=== PATIENT | female | born 1975 | race Two or more races ===

== ENCOUNTER 2020-06-10 11:45 | Emergency (ER) | payer OTHER, SELFPAY ==
[2020-06-10 12:00] VITALS: BP 127/67
[2020-06-10 12:08] VITALS: BP 157/112; PULSE 100; RESP 17; TEMP 36.8; O2SAT 96; BMI 31.2
--- NOTE | 2020-06-10 12:22 | CT_ITS ---
EXAMINATION: CT CERVICAL SPINE WITHOUT CONTRAST CLINICAL INFORMATION: Fall many months ago. Continued cervical pain COMPARISON: Cervical spine radiographs 12/20/2019. CT chest 05/04/2019 TECHNIQUE: Without contrast, contiguous helical axial tomographic images through the cervical spine were obtained. Coronal and sagittal reformatted images were obtained and reviewed as well. This CT examination was performed using dose optimization techniques as appropriate, variously including the following: *Automated exposure control *Adjustment of mA and/or kV according to patient size (this includes techniques or standardized protocols for targeted exams where dose is matched to indication/reason for exam; i.e. extremities or head) *Use of iterative reconstruction technique DLP: 462 mGy-cm FINDINGS: There is straightening of the normal cervical lordosis which can be positional or due to muscle spasm. No se or retrolisthesis at any level. No fracture seen. Vertebral body heights are maintained. Normal prevertebral soft tissues. There is circumferential wall thickening of the esophagus in the region of the thoracic inlet, unchanged from prior chest CT 05/04/2019 Lung apices are clear. There is a cyst in the left upper lobe. Thyroid is homogeneous. No cervical lymphadenopathy or fluid collection. Spinal levels: C2-C3: Normal. C3-C4: Normal. C4-C5: Normal. C5-C6: Normal. C6-C7: Normal. C7-T1: Normal. CT/CT cervical spine wo con IMPRESSION: No acute osseous abnormality. There is straightening of the normal cervical lordosis which can be positional or due to muscle spasm.
--- NOTE | 2020-06-10 13:09 | ED.BACK ---
HPI - Back Pain/Injury General Chief Complaint: Back Pain/Injury <MUSA More - Last Filed: 06/10/20 13:39> Stated Complaint: UPPER BACK PAIN <MUSA More - Last Filed: 06/10/20 13:39> Time Seen by Provider: 06/10/20 12:19 <MUSA More - Last Filed: 06/10/20 13:39> Source: patient <MUSA More - Last Filed: 06/10/20 13:39> Mode of arrival: ambulatory <MUSA More - Last Filed: 06/10/20 13:39> History of Present Illness HPI Narrative: 45yoF past medical history of anxiety, asthma, depression, hyperlipidemia, fibromyalgia, IBS, migraines, pulmonary hypertension, spondylosis of the lumbosacral joint c/o acute on chronic upper and lower back pain radiating down LUE and RLE S/P mechanical fall in the beginning of the year. Admits to taking ibuprofen at home without relief. Reports seeing [facility], and PCP, however unable to obtain CT or MRI due to insurance issues. Denies weakness, urinary incontinence or retention, new/more recent fall/trauma <MUSA More - Last Filed: 06/10/20 13:39> MD elicited complaint: back pain <MUSA More - Last Filed: 06/10/20 13:39> Related Data Home Medications: Home Medications Medication Instructions Recorded Confirmed amitriptyline 10 mg tablet 10 mg PO BEDTIME 05/15/20 05/15/20 atorvastatin 10 mg tablet 10 mg PO DAILY 05/15/20 05/15/20 cholecalciferol (vitamin D3) 50 50 mcg PO DAILY 05/15/20 05/15/20 mcg (2,000 unit) tablet duloxetine 60 mg capsule,delayed 60 mg PO DAILY 05/15/20 05/15/20 release furosemide 40 mg tablet 40 mg PO DAILY 05/15/20 05/15/20 lorazepam 1 mg tablet 1 mg PO Q12H PRN 05/15/20 05/15/20 meloxicam 15 mg tablet 15 mg PO DAILY 05/15/20 05/15/20 nortriptyline 25 mg capsule mg PO 05/15/20 05/15/20 omeprazole 20 mg capsule,delayed 20 mg PO DAILY 05/15/20 05/15/20 release prednisone 10 mg tablet 10 mg PO DAILY 05/15/20 05/15/20 spironolactone 100 mg tablet 0 mg PO 05/15/20 05/15/20 zolpidem 12.5 mg tablet,extended 12.5 mg PO BEDTIME PRN 05/15/20 05/15/20 release,multiphase Previous Rx's Medication Instructions Recorded gabapentin 600 mg tablet 600 mg PO TID 90 Days #270 tab 05/15/20 sertraline 50 mg tablet 50 mg PO DAILY #30 tab 06/01/20 acetaminophen [Tylenol Extra 500 mg PO Q6H PRN #20 tab 06/10/20 Strength] cyclobenzaprine 5 mg PO Q8H PRN 5 Days #14 tab 06/10/20 lidocaine [Lidoderm] 1 patch TOPICAL DAILY PRN #30 ea 06/10/20 MDD remove after 12 hours naproxen 500 mg PO BID PRN 10 Days #20 tab 06/10/20 <MUSA More - Last Filed: 06/10/20 13:39> Allergies/Adverse Reactions: Allergies Allergy/AdvReac Type Severity Reaction Status Date / Time lactose [LACTOSE] Allergy Unknown DIARRHEA Unverified 05/15/20 14:37 No Known Drug Allergies Allergy none Verified 05/15/20 14:37 milk [MILK] AdvReac Unknown DIARRHEA Unverified 05/15/20 14:37 <MUSA More - Last Filed: 06/10/20 13:39> Review of Systems Review of Systems: Constitutional: No Weight loss, No Fever, No Chills ENT/Mouth: No Ear Pain, No Nasal Congestion, No Sinus Pain, No Hoarseness, No sore throat, No Rhinorrhea, No Swallowing Difficulty Genitourinary: No Hematuria, No Urinary Incontinence or retention, No Flank Pain Musculoskeletal: +back and neck pain, No Myalgias, No Joint Swelling Skin: No Skin Lesions, No rash Neuro: No Weakness, No Numbness, No Paresthesias <MUSA More Last Filed: 06/10/20 13:39> Yes all other systems are reviewed and are negative <MUSA More Last Filed: 06/10/20 13:39> [facility] Past Medical History Attestation statement: The following information was validated with the patient. <MUSA More - Last Filed: 06/10/20 13:39> Medical History: Medical History (Updated 06/11/20 @ 00:21 by Savita Washington) Anxiety Asthma Chronic SI joint pain Depression Dyslipidemia Fall Fibromyalgia High triglycerides IBS (irritable bowel syndrome) Lymphangioleiomyomatosis Migraine Pain of right scapula Polycystic disease, ovaries Pulmonary HTN Spondylosis of lumbosacral joint without myelopathy Tinea cruris <MUSA More - Last Filed: 06/10/20 13:39> Surgical History: Surgical History History of section History of endoscopy History of laparoscopy History of tubal ligation <MUSA More - Last Filed: 06/10/20 13:39> Family History Family History: Family History Father Unknown family medical history Mother HTN (hypertension) Non-insulin dependent diabetes mellitus Maternal Grandmother Cancer Maternal Grandfather No problems noted. Paternal Grandfather No problems noted. Paternal Grandmother No problems noted. Brother No problems noted. Sister No problems noted. <MUSA More - Last Filed: 06/10/20 13:39> Physical Exam Vital Signs: Vital Signs: Last Vital Signs Temp 98.2 F 06/10/20 12:08 Pulse 100 06/10/20 12:08 Resp 17 06/10/20 12:08 BP 157/112 H 06/10/20 12:08 Pulse Ox 96 06/10/20 12:08 Body Mass Index 31.2 <MUSA More - Last Filed: 06/10/20 13:39> Vital Signs: Last Vital Signs Temp 98.2 F 06/10/20 12:08 Pulse 100 06/10/20 12:08 Resp 17 06/10/20 12:08 BP 157/112 H 06/10/20 12:08 Pulse Ox 96 06/10/20 12:08 Body Mass Index 31.2 <Rubén Gimenez MD - Last Filed: 06/13/20 02:36> Const: General: cooperative and healthy appearing <Kathleen Curiel PA - Last Filed: 06/10/20 13:39> Orientation/consciousness: patient oriented x3 <Kathleen Curiel AL - Last Filed: 06/10/20 13:39> Limitations: no limitations <Kathleen Curiel AL - Last Filed: 06/10/20 13:39> HENMT: Head: Yes normal to inspection <Kathleen Curiel PA - Last Filed: 06/10/20 13:39> Ears: hearing grossly normal bilaterally <Kathleen Curiel AL - Last Filed: 06/10/20 13:39> General nose exam: Normal external nose present <Kathleen Curiel AL - Last Filed: 06/10/20 13:39> Face and sinus: Yes normal facial exam <Kathleen Curiel PA - Last Filed: 06/10/20 13:39> Eyes: General: appearance normal, both eyes and all related structures <Kathleen Curiel AL - Last Filed: 06/10/20 13:39> EOM: EOMs intact bilaterally <Kathleenshayne Curiel AL - Last Filed: 06/10/20 13:39> Neck: Other: No midline cervical spinous tenderness. Left-sided paraspinal tenderness and left trapezius muscle tenderness on exam <Kathleen Curiel AL - Last Filed: 06/10/20 13:39> Neck: Yes normal visual inspection, Yes no meningeal signs and Yes trachea midline <Kathleen Curiel AL - Last Filed: 06/10/20 13:39> Resp: Effort & Inspection: normal respiratory effort <Kathleen Curiel PA - Last Filed: 06/10/20 13:39> Cardio: Rate: regular rate <Kathleen Curiel AL - Last Filed: 06/10/20 13:39> Peripheral pulses: radial pulses present <Kathleen Curiel PA - Last Filed: 06/10/20 13:39> Back/Spine/Pelvis: Other: No midline thoracic or lumbar spinous tenderness. + right-sided lumbar MSK tenderness <Kathleen Curiel PA - Last Filed: 06/10/20 13:39> Skin: Rashes: no rashes <Kathleen Curiel PA - Last Filed: 06/10/20 13:39> Wounds: no wounds <Kathleen Veena, PA - Last Filed: 06/10/20 13:39> Neuro: Other: Ambulating with steady gait. No saddle anesthesia <MUSA More - Last Filed: 06/10/20 13:39> General: patient oriented x3 and no meningeal signs <MUSA More - Last Filed: 06/10/20 13:39> Gait exam (Neuro): Normal gait present <MUSA More - Last Filed: 06/10/20 13:39> Motor exam (neuro): 5/5 motor strength present throughout <MUSA More - Last Filed: 06/10/20 13:39> Extrem: General: Yes normal to inspection <MUSA More - Last Filed: 06/10/20 13:39> Course Course Course Narrative: -CT without acute osseous abnormality. There is straightening of the normal cervical lordosis which she be positional or due to muscle spasm <MUSA More - Last Filed: 06/10/20 13:39> I have reviewed the chart <Rubén Gimenez MD - Last Filed: 06/13/20 02:36> MDM - Back Pain/Injury MDM Narrative Medical decision making narrative: On exam hypertensive, appears in pain, no midline spinous tenderness throughout, no red flag symptoms. Patient requesting cervical spine CT, will obtain, and outpatient follow-up with PCP <MUSA More - Last Filed: 06/10/20 13:39> Discharge Plan Discharge Clinical Impression: Back pain <MUSA More - Last Filed: 06/10/20 13:39> Patient Disposition: Home, Self-Care <MUSA More - Last Filed: 06/10/20 13:39> Instructions: Back Pain (ED) <MUSA More - Last Filed: 06/10/20 13:39> Additional Instructions: Your pain is likely musculoskeletal You to follow-up with her primary care doctor, and [facility] doctor Flexeril is a muscle relaxer, take at night as it makes you drowsy, do not drive, drink alcohol, or operate machinery while taking it Naproxen as an anti-inflammatory / pain medication, take with food Lidoderm patches are numbing patches, apply to painful area In addition take Tylenol at home If symptoms persist or worsen, pain becomes unbearable, you developed urinary retention or incontinence, or weakness return to the ED <MUSA More - Last Filed: 06/10/20 13:39> Prescriptions: New acetaminophen [Tylenol Extra Strength] 500 mg tablet 500 mg PO Q6H PRN (Reason: pain or fever) Qty: 20 RF: 0 lidocaine [Lidoderm] 5 % adhesive patch,medicated 1 patch topical DAILY MDD remove after 12 hours PRN (Reason: pain) Qty: 30 RF: 0 naproxen 500 mg tablet 500 mg PO BID PRN (Reason: pain) 10 Days Qty: 20 RF: 0 cyclobenzaprine 5 mg tablet 5 mg PO Q8H PRN (Reason: pain (scale score 7-10)) 5 Days Qty: 14 RF: 0 No Action gabapentin 600 mg tablet 600 mg PO TID 90 Days Qty: 270 RF: 0 sertraline 50 mg tablet 50 mg PO DAILY Qty: 30 RF: 4 meloxicam 15 mg tablet 15 mg PO DAILY RF: 0 furosemide 40 mg tablet 40 mg PO DAILY RF: 0 duloxetine 60 mg capsule,delayed release(DR/EC) 60 mg PO DAILY RF: 0 cholecalciferol (vitamin D3) 50 mcg (2,000 unit) tablet 50 mcg PO DAILY RF: 0 zolpidem 12.5 mg tablet,ext release multiphase 12.5 mg PO BEDTIME PRNRF: 0 spironolactone 100 mg tablet 0 mg PO RF: 0 omeprazole 20 mg capsule,delayed release(DR/EC) 20 mg PO DAILY RF: 0 lorazepam 1 mg tablet 1 mg PO Q12H PRNRF: 0 prednisone 10 mg tablet 10 mg PO DAILY RF: 0 amitriptyline 10 mg tablet 10 mg PO BEDTIME RF: 0 atorvastatin 10 mg tablet 10 mg PO DAILY RF: 0 nortriptyline 25 mg capsule PO RF: 0 <MUSA More - Last Filed: 06/10/20 13:39> Referrals: Stuart Timmons, [facility] [Primary Care Provider] - 2 days <MUSA More - Last Filed: 06/10/20 13:39> Interventions: ED Discharge Assessment Last Done: 06/10/20 13:45 <MUSA More - Last Filed: 06/10/20 13:39> Discharge Date/Time: 06/10/20 13:46 <MUSA More - Last Filed: 06/10/20 13:39>
== END 2020-06-10 13:46 | disposition home or self-care (01) ==
PROVIDERS: Emergency Provider Emergency Medicine; PCP Nurse Practitioner Family
DX: M54.6 Pain in thoracic spine (principal); M54.2 Cervicalgia; M54.5 Low back pain; E78.5 Hyperlipidemia, unspecified; M79.7 Fibromyalgia; Z79.899 Other long term (current) drug therapy
CPT/HCPCS: 72125; 99283; 99284

== ENCOUNTER 2020-06-10 13:58 | Outpatient (REF) | payer OTHER, SELFPAY | END 2020-06-10 13:59 | disposition home or self-care (01) | LOC: HO.LAB 13:58 | PROVIDERS: Visit Provider Nurse Practitioner Family | DX: Z01.83 Encounter for blood typing (principal) | CPT/HCPCS: 86850; 86900; 86901 ==

== ENCOUNTER 2020-07-16 17:57 | Outpatient (REF) | payer OTHER, SELFPAY ==
--- NOTE | 2020-07-16 18:00 | MR_ITS ---
EXAMINATION: MR CERVICAL SPINE WITHOUT CONTRAST CLINICAL INFORMATION: Cervical disc disorder. COMPARISON: Cervical spine CT scan 06/10/2020. TECHNIQUE: MRI of the cervical spine was obtained using routine sequences without contrast. FINDINGS: Alignment is normal. Vertebral heights are preserved. No acute bone marrow signal changes. There is disc desiccation at multiple levels without substantial loss of intervertebral disc height. There are small shallow left central protrusions at C4-C5 and C5-C6 causing minimal indentation of the thecal sac. Annular contours are otherwise normal. No canal or neuroforaminal compromise. No cord compression or abnormal intramedullary signal changes. The cervicomedullary junction is normal. Limited visualization of the intracranial compartment reveals no abnormal finding. The occipital condyles and lateral C1 masses are intact. Atlantodental joint is normal. C1-C2 articular facets are unremarkable. Visualized soft tissues of the neck are normal. MR/MR cervical spine wo con IMPRESSION: There are relatively small shallow protrusions at C4-C5 and C5-C6 causing minimal indentation of the thecal sac. Otherwise normal examination. No canal or neuroforaminal compromise. No cord compression or abnormal intramedullary signal changes.
== END 2020-07-16 17:58 | disposition home or self-care (01) ==
LOC: HO.MRI 17:57
PROVIDERS: Visit Provider Nurse Practitioner Family
DX: M50.90 Cervical disc disorder, unspecified, unspecified cervical region (principal)
CPT/HCPCS: 72141

== ENCOUNTER 2020-12-09 10:26 | Outpatient (REF) | payer OTHER, SELFPAY ==
[2020-12-09 11:51] LABS: MANUAL DIFF FLAG NO
[2020-12-09 11:54] LABS: Glucose Urine UA NEG (NEG); Leukocyte Esterase Urine NEG (NEG); Nitrite Urine NEG (NEG); Specific Gravity - Urine 1.025 (1.005-1.025); Urine Blood NEG (NEG); Urine Ketones NEG (NEG); Urine Protein NEG (NEG-TRACE)
[2020-12-09 11:55] LABS: Appearance Urine CLOUDY; Color Urine YELLOW
[2020-12-09 11:57] LABS: Basophils Percent Auto 0.4 % (0-2); Eosinophils Absolute Auto 0.1 X10*3/uL (0.0-0.4); Eosinophils Percent Auto 1.6 % (0-4); Hematocrit 39.8 % (37-47); Hemoglobin 13.2 g/dl (12.0-16.0); Imm Gran Abs Auto 0.02 X10*3/uL (0.00-0.03); Imm Gran Pct Auto 0.4 % (0.0-0.4); Lymphocytes Absolute Auto 1.8 X10*3/uL (1.2-4.9); Mean Corpuscular HGB Conc 33.2 g/dl (31.0-35.0); Mean Corpuscular Hemoglobin 30.6 pg (27.0-33.0); Mean Corpuscular Volume 92.1 fL (80-98); Mean Platelet Volume 10.7 fL (9.4-12.3); Monocytes Absolute Auto 0.3 X10*3/uL (0.1-1.2); Monocytes Percent Auto 6.3 % (2-11); Neutrophils Absolute Auto 2.8 X10*3/uL (2.0-8.3); Neutrophils Percent Auto 55.3 % (45-73); Platelet Count 261 X10*3/uL (160-400); Red Blood Count 4.32 X10*6/uL (4.20-5.50); Red Cell Distribution Width 12.4 % (11.0-16.0); White Blood Count 5.1 X10*3/uL (4.8-10.8)
[2020-12-09 12:21] LABS: Bacteria Urine 1+ /LPF; RBC Urine 0-2 /HPF (0); Squamous Epithelial Cell Urine 3+ /LPF; WBC Urine 0-2 /HPF (0-4)
[2020-12-09 12:39] LABS: Thyroid Stimulating Hormone 1.76 uIU/mL (0.32-4.0)
[2020-12-09 12:46] LABS: Alanine Aminotransferase 15 U/L (0-31); Albumin Level 4.6 g/dL (3.5-5.0); Alkaline Phosphatase 94 U/L (39-117); Anion Gap 14 (12-20); Aspartate Amino Transferase 16 U/L (5-31); Blood Urea Nitrogen 5 mg/dL (9-16); C Reactive Protein 0.08 mg/dL (< or = 0.50); Calcium 9.4 mg/dL (8.4-10.2); Carbon Dioxide 26 mmol/L (22-29); Chloride 104 mmol/L (96-108); Estimated Glomerular Filt Rate > 60; Glucose Random 98 mg/dL (60-115); Potassium 3.8 mmol/L (3.3-5.1); Sodium 140 mmol/L (135-145); Total Protein 7.7 g/dL (6.5-8.0)
[2020-12-09 13:11] LABS: Erythrocyte Sedimentation Rate 13 MM/HR (0-20)
[2020-12-10 12:44] LABS: Anti DNA DS Antibody 1 IU/mL; SM/Ribonucleoprotein Ab <1.0 NEG AI (<1.0 NEG); Smith Protein <1.0 NEG AI (<1.0 NEG)
[2020-12-10 15:12] LABS: Complement C3 143 mg/dL (83-193)
[2020-12-10 17:36] LABS: Thyroglobulin Antibodies <1 IU/mL (< or = 1); Thyroid Peroxidase Antibodies 1 IU/mL (<9)
[2020-12-11 21:27] LABS: Cyclic Citrullinated Peptide <16 UNITS
== END 2020-12-09 10:27 | disposition home or self-care (01) ==
LOC: HO.LAB 10:26
PROVIDERS: PCP Nurse Practitioner Family; Visit Provider Student in an Organized Health Care Education/Training Program
DX: R76.8 Other specified abnormal immunological findings in serum (principal); M25.50 Pain in unspecified joint
CPT/HCPCS: 36415; 80053; 81001; 84443; 85025; 85652; 86140; 86160; 86200; 86225; 86235; 86376; 86800; 99202

== ENCOUNTER → 2021-03-18 15:10 | Outpatient (BNVA) | payer OTHER, SELFPAY | PROVIDERS: PCP Nurse Practitioner Family; Visit Provider Student in an Organized Health Care Education/Training Program | DX: R76.8 Other specified abnormal immunological findings in serum (principal); M79.7 Fibromyalgia | CPT/HCPCS: 99212 ==

== ENCOUNTER 2021-04-13 09:52 | Outpatient (REF) | payer OTHER, SELFPAY ==
--- NOTE | ~2021-04-13 | CT_ITS ---
EXAMINATION: CT CHEST WITH CONTRAST CLINICAL INFORMATION: SINGLETON of the lungs. Shortness of breath. COMPARISON: Previous chest CT May 2019 TECHNIQUE: Multidetector volumetric CT imaging of the chest was obtained after the administration of 65 mL of Omnipaque 350 intravenous contrast without immediate adverse reactions. Axial MIP volume rendering provided. Sagittal and coronal reformatted images were obtained. This CT examination was performed using dose optimization techniques as appropriate, variously including the following: *Automated exposure control *Adjustment of mA and/or kV according to patient size (this includes techniques or standardized protocols for targeted exams where dose is matched to indication/reason for exam; i.e. extremities or head) *Use of iterative reconstruction technique DLP: 85 mGy-cm FINDINGS: RECREATIONAL ASSISTANT: Unremarkable LUNGS: There are multiple thin-walled cysts seen bilaterally. This does not appear appreciably changed from May 2019 exam. Largest cysts measure 1.5 cm. There is a 2 mm right lower lobe peripheral nodule axial image 114 series 5. This is stable. There is subsegmental atelectasis at the lung bases. The lungs are otherwise clear. No evidence of emphysema, interstitial lung disease or bronchiectasis is seen. No endobronchial or endotracheal lesion is seen MEDIASTINUM: The mediastinum is normal. PLEURA: There is no pleural effusion. No pleural mass or thickening. AXILLA: No lymphadenopathy. UPPER ABDOMEN: Unremarkable OSSEOUS STRUCTURES: There is mild curvature of the thoracic spine to the right. CT/CT chest w con IMPRESSION: Stable bilateral lung cysts compared to May 2019.
[2021-04-13] MEDS: iohexoL 350 MG/ML 100 ML INFUS..BTL IV (10:50)
== END 2021-04-13 09:53 | disposition home or self-care (01) ==
LOC: HO.CT 09:52
PROVIDERS: PCP Nurse Practitioner Family; Visit Provider Student in an Organized Health Care Education/Training Program
DX: J98.4 Other disorders of lung (principal)
CPT/HCPCS: 71260; Q9967

== ENCOUNTER 2021-05-21 11:00 | Outpatient (RCR) | payer OTHER, SELFPAY ==
--- NOTE | 2021-04-13 14:58 | MHC.PT.EP ---
[facility] [place] Office [place] [facility] [place] Office [address] Diandra Burden [address] [phone] F: [phone] F: [phone] F: [phone] F: [phone] Physical Therapy Plan of Care Date of Evaluation: Date of Surgery: n/a Diagnosis: Back pain Assessment: Pt is a 46/yo F referred to PT for eval/treat of back pain. signs and symptoms are consistent should scapulothoracic dysfunction resulting in decreased ability to perform personal care and lifting heavy object off of the floor, decreased tolerance for sitting and ambulating for duration, as well as disrupted sleep and social life. Functional limitations mentioned about are secondary to limited L scapulothoracic rhythm, hypomobility of T1-12 spine, TTP of thoracic erectae spinae, nicole scapular musculature, UT, Hx of fall, and pain. pt is deemed appropriate to receive skilled PT to address her physical impairment and improve her functional abilities. Frequency and Duration: The patient will be seen 2x/wk for 5wk Short Term Goals: initiate HEP w/ evidence of compliance pt will reports pain less than 1/10 at rest Network Operations Manager Goals: pt will report i do not normally cahnge the way I wash or dress even though it causes some pain ; initial washing and dressing increases my pain and find it necessary to change the way Nicki pt will be able to ambulate for a mile w/ minimal pain; initial pain prevent me from walking intermediate distance pt will improve her Nicki score by at least 20%; initial 25/50. Treatment Plan: Modalities to reduce pain, spasms and effusion. Manual therapy to restore motion and function. Therapeutic exercise to improve strength and flexibility. Neuromuscular re-education for posture and balance. Therapeutic activities to return to functional activities of daily living. Electronically signed by: José Luis Cruz PT Please sign and return to therapist. Thank you for your referral.
--- NOTE | 2021-08-17 16:52 | MHC.PT.DC ---
[facility] [place] Office [place] Office [place] Office [address] Diandra Burden [address] [phone] F: [phone] F: [phone] F: [phone] F: [phone] Physical Therapy Discharge Report Diagnosis: Back pain Date of Surgery: n/a Date of Evaluation: 04/13/21 Date of Discharge: 06/01/21 Treatments to Date: 9 Cancellations to Date: 4 No Shows to Date: 1 Discharge Status: Achieved Goals Improved Function Independent with HEP Discharge Summary: Ciara had been an active participant in her therapy in and out of the clinic though missed her lase appointments for final assessment and is DC'd ultimately d/t attendance policy. Her Nicki disability index improved from 50% to 12% disability; she is I with her home program and hd met most of her therapeutic goals. Electronically signed by: José Luis Cruz PT Please sign and return to therapist. Thank you for your referral.
== END 2021-08-17 16:52 | disposition home or self-care (01) ==
LOC: HO.PTCHIC 11:00
PROVIDERS: PCP Nurse Practitioner Family; Visit Provider Nurse Practitioner Family
DX: M54.9 Dorsalgia, unspecified (principal)
CPT/HCPCS: 97012; 97014; 97110; 97140; 97161

== ENCOUNTER 2021-06-17 15:01 | Emergency (ER) | payer OTHER, SELFPAY ==
--- NOTE | ~2021-06-17 | CT_ITS ---
EXAMINATION: CT BRAIN WITHOUT CONTRAST. CHEST X-RAY. CLINICAL INFORMATION: Dizziness COMPARISON: None TECHNIQUE: 5 mm thin axial and reformatted 2 mm thin sagittal coronal images of brain were obtained without contrast. DLP 600. Chest one view. FINDINGS: Brain: There is no acute intra-axial, extra-axial bleed, masses or midline shift. There is no acute infarction evolution. The logan to white matter difference is maintained normal. The lateral ventricles are symmetrical in size and configuration without enlargement. Bone windows reveal no calvarial abnormality. The scalp soft tissues are normal. Bilateral paranasal sinuses and mastoid air cells are well aerated. Chest x-ray: Both lungs are fairly well-expanded and clear of acute pneumonic process. There is platelike atelectasis in the lingula. Heart size and pulmonary vascularity is normal. No gross bony abnormality seen.. CT/CT head/brain wo con IMPRESSION: No acute intracranial process seen. Unremarkable chest x-ray.
[2021-06-17 15:06] VITALS: BP 151/80; PULSE 85; RESP 16; TEMP 36.6; O2SAT 100; BMI 30.2
[2021-06-17 16:13] VITALS: BP 174/97; PULSE 79; RESP 18; TEMP 36.6; O2SAT 96
--- NOTE | 2021-06-17 16:13 | ED.GENADULT ---
HPI - General Adult General Chief complaint: General Medical Stated complaint: dizziness Time Seen by Provider: 06/17/21 16:13 Source: patient Mode of arrival: ambulatory Limitations: no limitations History of Present Illness HPI narrative: 46-year-old female came in for evaluation of lightheadedness and dizziness. Symptoms started 4-5 days ago, described as intermittent feeling of lightheadedness but no spinning of the room, nothing trigger her symptoms, nothing make it worse, no other associated chest pain, patient has been having difficulty breathing but patient is known to have SINGLETON lung disease. patient declined any fever or chills or chest pain. Never had this symptoms in the past. patient has been feeling otherwise at her normal health status. Related Data Home Medications Medication Instructions Recorded Confirmed furosemide 40 mg tablet 40 mg PO DAILY 05/15/20 12/30/20 omeprazole 20 mg capsule,delayed 20 mg PO DAILY 05/15/20 12/30/20 release amitriptyline 10 mg tablet 10 mg PO BEDTIME tab 02/10/21 sertraline 25 mg tablet 25 mg PO DAILY 02/16/21 Previous Rx's Medication Instructions Recorded naproxen 500 mg tablet 500 mg PO BID PRN 10 Days #20 tab 06/10/20 lorazepam 1 mg tablet 1 mg PO Q12H PRN 30 Days #60 tab 08/07/20 acetaminophen 500 mg tablet 500 mg PO Q6H PRN 30 Days #120 tab 11/11/20 (Tylenol Extra Strength) escitalopram oxalate 10 mg tablet 10 mg PO DAILY 30 Days #30 tab 12/11/20 spironolactone 100 mg tablet 100 mg PO .COMPLEX 30 Days #90 tab 01/08/21 atorvastatin 10 mg tablet 10 mg PO DAILY 90 Days #90 tab 02/06/21 tizanidine 4 mg tablet 4 mg PO BID PRN #60 tab 04/26/21 sumatriptan succinate 50 mg tablet 50 mg PO ONCE PRN 10 Days #10 tab 05/03/21 gabapentin 300 mg capsule 300 mg PO TID 30 Days #90 cap 05/18/21 duloxetine 60 mg capsule,delayed 60 mg PO DAILY #90 cap 05/26/21 release cholecalciferol (vitamin D3) 50 50 mcg PO DAILY #30 tab 06/10/21 mcg (2,000 unit) tablet (Vitamin D3) zolpidem 12.5 mg tablet,extended 12.5 mg PO BEDTIME 30 Days #30 tab 06/10/21 release,multiphase Allergies Allergy/AdvReac Type Severity Reaction Status Date / Time lactose [LACTOSE] Allergy Unknown DIARRHEA Verified 06/17/21 13:45 No Known Drug Allergies Allergy none Verified 06/17/21 13:45 milk [MILK] AdvReac Unknown DIARRHEA Verified 06/17/21 13:45 Review of Systems Review of Systems: All other systems are reviewed and are negative Constitutional: Reports as per HPI and Reports no additional constitutional complaints Eyes: Reports as per HPI and Reports no additional eye complaints Reports system reviewed and no additional complaints, except as documented Cardiovascular: Reports as per HPI and Reports no additional cardiovascular complaints Respiratory: Reports as per HPI and Reports no additional respiratory complaints Gastrointestinal: Reports as per HPI and Reports no additional gastrointestinal complaints Genitourinary: Reports no additional female genitourinary complaints Musculoskeletal: Reports no additional musculoskeletal complaints Skin/Breast: Reports system reviewed and no additional complaints, except as docu Psychiatric: Reports no additional psychiatric complaints Endocrine: Reports no additional endocrine complaints Hematologic/Lymphatic: Reports no additional hematologic/lymphatic complaints Allergic/Immunologic: Reports no additional allergic/immunologic complaints Reports system reviewed and no additional complaints, except as documented and Reports Abnormal speech present [facility] Past Medical History Medical History Anxiety Asthma Cervical neck pain with evidence of disc disease Chronic SI joint pain Depression Dyslipidemia Fall Fibromyalgia High triglycerides IBS (irritable bowel syndrome) Lumbar spondylosis Lymphangioleiomyomatosis Migraine Osteoarthritis Pain of right scapula Polycystic disease, ovaries Pulmonary HTN Spondylosis of lumbosacral joint without myelopathy Tinea cruris Surgical History History of section History of endoscopy History of laparoscopy History of tubal ligation Family History Family History Father Unknown family medical history Mother HTN (hypertension) Non-insulin dependent diabetes mellitus Maternal Grandmother Cancer Maternal Grandfather No problems noted. Paternal Grandfather No problems noted. Paternal Grandmother No problems noted. Brother No problems noted. Sister No problems noted. Social History Social History Alcohol intake: never Patient Tobacco Use Status: Former Tobacco user Tobacco use type: Cigarette Advance Directives: No Advance Directives Information Provided: No Patient : No Physical Exam Vital Signs: Vital Signs: Last Vital Signs Temp 98.9 F 06/17/21 18:39 Pulse 76 06/17/21 18:39 Resp 16 06/17/21 18:39 BP 127/76 06/17/21 18:39 Pulse Ox 100 06/17/21 18:39 Body Mass Index 30.2 Vital signs have been reviewed as appeared to be correct. Blood pressure elevated. Heart rate normal. Respiration rate normal. Temperature normal. Oxygen saturation normal. Appearance: Alert. Oriented X3. No acute distress. Head: Normal external exam. Normocephalic. Atraumatic. No Lozada signs noted. No raccoon eyes noted Eyes: PERRLA. EOMI. Conjunctiva and sclera normal. Eyelids normal. ENT: TM's Normal. Pharynx normal. Uvula midline. Moist mucous membranes. No trismus noted. No drooling noted. No muffled voice noted. Neck: Normal inspection. Neck supple. FROM. No adenopathy. Thyroid Normal. No meningeal signs. No neck mass noted. CVS: Normal heart rate and rhythm. Heart sound normal. No murmurs noted. Pulses normal throughout. Respiratory: No respiratory distress. Painless inspiration. Breath sounds normal. No wheezes/rales/rhonchi noted. Chest nontender. No accessory muscle usage noted or decreased air movement noted. Abdomen: Soft and nontender. Bowel sounds normal in all 4 quadrants. No distention noted. No organomegaly noted. No visible injury noted. Back: No CVA tenderness. Full range of motion noted. Skin: Skin warm and dry. Normal skin color. Normal skin turgor. No rashes/lesions/lacerations noted. Extremities: No lower extremity edema. Extremities exhibit normal range of motion. Extremities nontender. Neuro: Oriented X 3. Cranial nerve exam: II-XII are grossly intact No motor deficit. No sensory deficit. Reflexes normal. Course Course Course Narrative: Assessment and plan. 46-year-old female came in for evaluation of lightheadedness for the past few days, patient with history of SINGLETON lung disease with pulmonary hypertension. Physical exam today, EKG, blood workup, CT head, chest x-ray are unremarkable for acute cause of patient's symptoms. 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 Initially patient was hypertensive in the emergency room and blood pressure is normalizing while she is in the ED. Medical Decision Making Lab Data Lab results reviewed: Yes I reviewed the patient's lab results. Result diagrams: 06/17/21 16:56 06/17/21 16:56 Labs: Lab Results 06/17/21 06/17/21 06/17/21 Range/Units 16:56 16:56 16:56 WBC 4.9 (4.8-10.8) X10*3/uL RBC 4.15 L (4.20-5.50) X10*6/uL Hgb 13.2 (12.0-16.0) g/dl Hct 38.5 (37.0-47.0) % MCV 92.8 (80.0-98.0) fL MCH 31.8 (27.0-33.0) pg MCHC 34.3 (31.0-35.0) g/dl RDW 12.4 (11.0-16.0) % Plt Count 276 (160-400) X10*3/uL MPV 10.5 (9.4-12.3) fL Immature Gran % (Auto) 0.4 (0.0-0.4) % Neut % (Auto) 60.9 (45-73) % Lymph % (Auto) 31.6 (20-40) % Bladen % (Auto) 5.7 (2-11) % Eos % (Auto) 1.2 (0-4) % Baso % (Auto) 0.2 (0-2) % Lymph # (Auto) 1.6 (1.2-4.9) X10*3/uL Bladen # (Auto) 0.3 (0.1-1.2) X10*3/uL Eos # (Auto) 0.1 (0.0-0.4) X10*3/uL Baso # (Auto) 0.0 (0.0-0.2) X10*3/uL Abs Immat Gran (auto) 0.02 (0.00-0.03) X10*3/uL Absolute Neuts (auto) 3.0 (2.0-8.3) x10*3/uL Absolute Nucleated RBC 0.000 (0.0-0.012) X10*3/uL Nucleated RBC % (auto) 0.0 (0.0-0.2) /100WBC Sodium 137 (135-145) mmol/L Potassium 3.8 (3.3-5.1) mmol/L Chloride 105 (96-108) mmol/L Carbon Dioxide 23 (22-29) mmol/L Anion Gap 13 (12-20) BUN 8 L D (9-16) mg/dL Creatinine 0.67 (0.5-1.4) mg/dL Estim Creat Clear Calc 92.7 Estimated GFR > 60 Random Glucose 93 (60-115) mg/dL Calcium 9.5 (8.4-10.2) mg/dL Total Bilirubin 1.3 H (0.0-1.0) mg/dL Direct Bilirubin 0.4 (0.0-0.5) mg/dL AST 17 (5-31) U/L ALT 17 (0-31) U/L Alkaline Phosphatase 87 (39-117) U/L Troponin I High Sens < 3.5 (<3.5-17.0) ng/L B-Natriuretic Peptide 17 (<100) pg/mL Total Protein 8.0 (6.5-8.0) g/dL Albumin 4.7 (3.5-5.0) g/dL Lipase 14 (8-78) U/L Urine Color Urine Appearance Urine pH (5.0-8.0) Ur Specific Layton (1.005-1.025) Urine Protein (NEG-TRACE) MG/DL Urine Glucose (UA) (NEG) MG/DL Urine Ketones (NEG) MG/DL Urine Blood (NEG) Urine Nitrite (NEG) Ur Leukocyte Esterase (NEG) Urine RBC (0) /HPF Urine WBC (0-4) /HPF Ur Squamous Epith Cells /LPF Urine Bacteria /LPF 06/17/21 Range/Units 17:57 WBC (4.8-10.8) X10*3/uL RBC (4.20-5.50) X10*6/uL Hgb (12.0-16.0) g/dl Hct (37.0-47.0) % MCV (80.0-98.0) fL MCH (27.0-33.0) pg MCHC (31.0-35.0) g/dl RDW (11.0-16.0) % Plt Count (160-400) X10*3/uL MPV (9.4-12.3) fL Immature Gran % (Auto) (0.0-0.4) % Neut % (Auto) (45-73) % Lymph % (Auto) (20-40) % Bladen % (Auto) (2-11) % Eos % (Auto) (0-4) % Baso % (Auto) (0-2) % Lymph # (Auto) (1.2-4.9) X10*3/uL Bladen # (Auto) (0.1-1.2) X10*3/uL Eos # (Auto) (0.0-0.4) X10*3/uL Baso # (Auto) (0.0-0.2) X10*3/uL Abs Immat Gran (auto) (0.00-0.03) X10*3/uL Absolute Neuts (auto) (2.0-8.3) x10*3/uL Absolute Nucleated RBC (0.0-0.012) X10*3/uL Nucleated RBC % (auto) (0.0-0.2) /100WBC Sodium (135-145) mmol/L Potassium (3.3-5.1) mmol/L Chloride (96-108) mmol/L Carbon Dioxide (22-29) mmol/L Anion Gap (12-20) BUN (9-16) mg/dL Creatinine (0.5-1.4) mg/dL Estim Creat Clear Calc Estimated GFR Random Glucose (60-115) mg/dL Calcium (8.4-10.2) mg/dL Total Bilirubin (0.0-1.0) mg/dL Direct Bilirubin (0.0-0.5) mg/dL AST (5-31) U/L ALT (0-31) U/L Alkaline Phosphatase (39-117) U/L Troponin I High Sens (<3.5-17.0) ng/L B-Natriuretic Peptide (<100) pg/mL Total Protein (6.5-8.0) g/dL Albumin (3.5-5.0) g/dL Lipase (8-78) U/L Urine Color YELLOW Urine Appearance CLEAR Urine pH 6.5 (5.0-8.0) Ur Specific Layton 1.010 (1.005-1.025) Urine Protein NEG (NEG-TRACE) MG/DL Urine Glucose (UA) NEG (NEG) MG/DL Urine Ketones NEG (NEG) MG/DL Urine Blood 3+ H (NEG) Urine Nitrite NEG (NEG) Ur Leukocyte Esterase NEG (NEG) Urine RBC 0-2 (0) /HPF Urine WBC 0-2 (0-4) /HPF Ur Squamous Epith Cells 2+ /LPF Urine Bacteria 1+ /LPF Imaging Data Chest x-ray: Attestation: I personally reviewed and interpreted this imaging study as follows: Radiologist's impression: Unremarkable chest x-ray CT scan - head: Attestation: I personally reviewed and interpreted this imaging study as follows: Radiologist's impression: No acute intracranial process seen. ECG Data Attestation: I personally reviewed and interpreted this ECG as follows: Interpretation: Normal sinus rhythm at 81 beats per minute, normal intervals, normal axis deviation, no ST-T changes. Discharge Plan Discharge Clinical Impression: Dizziness Patient Disposition: Home, Self-Care Instructions: Lightheadedness (ED) Prescriptions: No Action lorazepam 1 mg tablet 1 mg PO Q12H PRN (Reason: anxiety) 30 Days Qty: 60 RF: 0 acetaminophen [Tylenol Extra Strength] 500 mg tablet 500 mg PO Q6H PRN (Reason: pain or fever) 30 Days Qty: 120 RF: 0 escitalopram oxalate 10 mg tablet 10 mg PO DAILY 30 Days Qty: 30 RF: 6 spironolactone 100 mg tablet 100 mg PO .COMPLEX 30 Days Qty: 90 RF: 2 atorvastatin 10 mg tablet 10 mg PO DAILY 90 Days Qty: 90 RF: 3 amitriptyline 10 mg tablet 10 mg PO BEDTIME RF: 0 sertraline 25 mg tablet 25 mg PO DAILY RF: 0 tizanidine 4 mg tablet 4 mg PO BID PRN (Reason: for muscle spasm) Qty: 60 RF: 2 sumatriptan succinate 50 mg tablet 50 mg PO ONCE PRN (Reason: for headache) 10 Days Qty: 10 RF: 1 gabapentin 300 mg capsule 300 mg PO TID 30 Days Qty: 90 RF: 0 duloxetine 60 mg capsule,delayed release(DR/EC) 60 mg PO DAILY Qty: 90 RF: 0 zolpidem 12.5 mg tablet,ext release multiphase 12.5 mg PO BEDTIME 30 Days Qty: 30 RF: 2 cholecalciferol (vitamin D3) [Vitamin D3] 50 mcg (2,000 unit) tablet 50 mcg PO DAILY Qty: 30 RF: 2 naproxen 500 mg tablet 500 mg PO BID PRN (Reason: pain) 10 Days Qty: 20 RF: 0 furosemide 40 mg tablet 40 mg PO DAILY RF: 0 omeprazole 20 mg capsule,delayed release(DR/EC) 20 mg PO DAILY RF: 0 Referrals: Stuart Timmons, REPORT ANALYST-BC [Primary Care Provider] - 2 days
--- NOTE | 2021-06-17 16:20 | ECG_ITS ---
Test Reason : medical Blood Pressure : / mmHG Vent. Rate : 081 BPM Atrial Rate : 081 BPM P-R Int : 148 ms QRS Dur : 078 ms QT Int : 386 ms P-R-T Axes : 075 065 072 degrees QTc Int : 448 ms Normal sinus rhythm Possible Left atrial enlargement Otherwise normal ECG When compared with ECG of 13-MAR-2013 13:03, Heart rate has decreased Referred By: Ebonie Hassan Electronically Signed By:LAURA ORO MD
[2021-06-17] MEDS: 0.9 % Sodium Chloride 1,000 ML 999 ML IVCONT (16:58)
[2021-06-17 17:08] LABS: MANUAL DIFF FLAG NO
[2021-06-17 17:09] LABS: Basophils Percent Auto 0.2 % (0-2); Eosinophils Absolute Auto 0.1 X10*3/uL (0.0-0.4); Eosinophils Percent Auto 1.2 % (0-4); Hematocrit 38.5 % (37.0-47.0); Hemoglobin 13.2 g/dl (12.0-16.0); Imm Gran Abs Auto 0.02 X10*3/uL (0.00-0.03); Imm Gran Pct Auto 0.4 % (0.0-0.4); Lymphocytes Absolute Auto 1.6 X10*3/uL (1.2-4.9); Lymphocytes Percent Auto 31.6 % (20-40); Mean Corpuscular HGB Conc 34.3 g/dl (31.0-35.0); Mean Corpuscular Hemoglobin 31.8 pg (27.0-33.0); Mean Corpuscular Volume 92.8 fL (80.0-98.0); Mean Platelet Volume 10.5 fL (9.4-12.3); Monocytes Absolute Auto 0.3 X10*3/uL (0.1-1.2); Monocytes Percent Auto 5.7 % (2-11); Neutrophils Percent Auto 60.9 % (45-73); Platelet Count 276 X10*3/uL (160-400); Red Blood Count 4.15 X10*6/uL (4.20-5.50); Red Cell Distribution Width 12.4 % (11.0-16.0); White Blood Count 4.9 X10*3/uL (4.8-10.8)
[2021-06-17 17:24] LABS: Alanine Aminotransferase 17 U/L (0-31); Albumin Level 4.7 g/dL (3.5-5.0); Alkaline Phosphatase 87 U/L (39-117); Anion Gap 13 (12-20); Aspartate Amino Transferase 17 U/L (5-31); Bilirubin Direct 0.4 mg/dL (0.0-0.5); Bilirubin Total 1.3 mg/dL (0.0-1.0); Blood Urea Nitrogen 8 mg/dL (9-16); Calcium 9.5 mg/dL (8.4-10.2); Carbon Dioxide 23 mmol/L (22-29); Chloride 105 mmol/L (96-108); Creatinine Clr Calc Pharmacy 92.7; Estimated Glomerular Filt Rate > 60; Glucose Random 93 mg/dL (60-115); Lipase 14 U/L (8-78); Potassium 3.8 mmol/L (3.3-5.1); Sodium 137 mmol/L (135-145)
[2021-06-17 17:29] LABS: B Type Natriuretic Peptide 17 pg/mL (<100); Troponin-I High Sensitivity < 3.5 ng/L (<3.5-17.0)
[2021-06-17 18:06] LABS: Appearance Urine CLEAR; Color Urine YELLOW; Glucose Urine UA NEG (NEG); Leukocyte Esterase Urine NEG (NEG); Nitrite Urine NEG (NEG); PH 6.5 (5.0-8.0); UACC Culture Trigger NO; Urine Blood 3+ (NEG); Urine Ketones NEG (NEG); Urine Protein NEG (NEG-TRACE)
[2021-06-17 18:13] LABS: Bacteria Urine 1+ /LPF; Squamous Epithelial Cell Urine 2+ /LPF
[2021-06-17 18:15] LABS: RBC Urine 0-2 /HPF (0); WBC Urine 0-2 /HPF (0-4)
[2021-06-17 18:39] VITALS: BP 127/76; PULSE 76; RESP 16; TEMP 37.2; O2SAT 100
== END 2021-06-17 19:31 | disposition home or self-care (01) ==
PROVIDERS: Emergency Provider Emergency Medicine; PCP Nurse Practitioner Family
DX: R42 Dizziness and giddiness (principal); R03.0 Elevated blood-pressure reading, without diagnosis of hypertension; I27.20 Pulmonary hypertension, unspecified
CPT/HCPCS: 36415; 70450; 71045; 80048; 80076; 81001; 83690; 83880; 84484; 85025; 93005; 96360; 99284

== ENCOUNTER 2021-10-14 14:30 | Outpatient (REF) | payer OTHER, SELFPAY ==
[2021-10-14 16:28] LABS: Appearance Urine TURBID; Color Urine YELLOW; Glucose Urine UA NEG (NEG); Leukocyte Esterase Urine NEG (NEG); Nitrite Urine NEG (NEG); Specific Gravity - Urine 1.025 (1.005-1.025); Urine Blood NEG (NEG); Urine Ketones NEG (NEG); Urine Protein TRACE MG/DL (NEG-TRACE)
[2021-10-14 16:38] LABS: Alanine Aminotransferase 21 U/L (0-31); Albumin Level 4.9 g/dL (3.5-5.0); Alkaline Phosphatase 95 U/L (39-117); Anion Gap 12 (12-20); Aspartate Amino Transferase 16 U/L (5-31); Bilirubin Total 1.8 mg/dL (0.0-1.0); Blood Urea Nitrogen 13 mg/dL (9-16); Calcium 10.4 mg/dL (8.4-10.2); Carbon Dioxide 26 mmol/L (22-29); Chloride 105 mmol/L (96-108); Cholesterol 174 mg/dL; Estimated Glomerular Filt Rate > 60; Glucose Fasting 100 mg/dL (60-99); HDL Cholesterol 42 mg/dL; LDL Cholesterol Calculated 103 mg/dl; Potassium 4.4 mmol/L (3.3-5.1); Sodium 139 mmol/L (135-145); Total Protein 8.2 g/dL (6.5-8.0); Triglycerides 146 mg/dL
[2021-10-14 16:59] LABS: TSH reflex Free T4 1.34 uIU/mL (0.32-4.0)
== END 2021-10-14 14:31 | disposition home or self-care (01) ==
LOC: HO.HMGCLDS 14:30
PROVIDERS: PCP Nurse Practitioner Family; Visit Provider Nurse Practitioner Family
DX: Z00.00 Encounter for general adult medical examination without abnormal findings (principal)
CPT/HCPCS: 36415; 80053; 80061; 81003; 84443

== ENCOUNTER 2021-11-27 11:36 | Outpatient (REF) | payer OTHER, SELFPAY ==
--- NOTE | ~2021-11-27 | MM_ITS ---
EXAMINATION: MM SCREENING DIGITAL BREAST TOMOSYNTHESIS, BILATERAL CLINICAL INFORMATION: Screening. Asymptomatic. No prior breast imaging. Age 46. No known family history breast cancer. The lifetime risk of breast cancer based on the Tyrer-Cuzick Model is 7%. COMPARISON: None (current study represents initial baseline exam). TECHNIQUE: Digital breast tomosynthesis is performed in both the craniocaudal and mediolateral oblique views along with computer-aided detection (CAD). Synthesized 2D images are generated from the tomosynthesis. FINDINGS: The breasts are heterogeneously dense, which may obscure small masses (ACR BI-RADS breast composition Category c). Breast tissue composition borders on average fibroglandular. There are no significant masses, abnormal calcifications, or other abnormalities. The axilla and skin contours are unremarkable. MM/MM tomosynthesis screening BI IMPRESSION: No mammographic evidence of malignancy. ASSESSMENT: BI-RADS 1: Negative RECOMMENDATION: Routine annual mammography screening. This patient's information was entered into a reminder system with a target due date for their next mammogram.
== END 2021-11-27 11:37 | disposition home or self-care (01) ==
LOC: HO.MAMMO 11:36
PROVIDERS: PCP Nurse Practitioner Family; Visit Provider Nurse Practitioner Family
DX: Z12.31 Encounter for screening mammogram for malignant neoplasm of breast (principal)
CPT/HCPCS: 77063; 77067

== ENCOUNTER 2021-12-17 13:56 | Outpatient (REF) | payer OTHER, SELFPAY ==
[2021-12-17 16:30] LABS: Bilirubin Direct 0.5 mg/dL (0.0-0.5)
[2021-12-18 13:19] LABS: Calcium (PTHI) 9.8 mg/dL (8.6-10.2); PTHI 62 pg/mL (16-77)
[2021-12-21 13:16] LABS: Calcium, Ionized 5.1 mg/dL (4.8-5.6)
== END 2021-12-17 13:57 | disposition home or self-care (01) ==
LOC: HO.HMGCLDS 13:56
PROVIDERS: Visit Provider Nurse Practitioner Family
DX: R17 Unspecified jaundice (principal); E83.52 Hypercalcemia
CPT/HCPCS: 36415; 82247; 82248; 82330; 83970

== ENCOUNTER 2022-01-14 09:12 | Outpatient (REF) | payer OTHER, SELFPAY ==
[2022-01-14 10:24] LABS: Bilirubin Direct 0.2 mg/dL (0.0-0.5); Gamma Glutamyl Transpeptidase 21 U/L (7-33)
[2022-01-14 10:43] LABS: HBS Num1 42.39 mIU/mL (0-7.99); HBc Num1 0.06 S/CO (0.00-0.79); HBsAGNum1 0.17 S/CO (0.00-0.99); HIV AB/AG Nonreactive (Nonreactive); HIV Num 1 0.06 S/CO (0.00-0.99); Hepatitis B Core Antibody Nonreactive (Nonreactive); Hepatitis B Surface Antigen Negative (Negative); ~HepC Num1 0.09 S/CO (0.00-0.79); ~Hepatitis B Surface Antibody REACTIVE (Nonreactive); ~Hepatitis C Antibody Nonreactive (Nonreactive)
[2022-01-14 10:47] LABS: Ferritin 21 ng/mL (10-250)
[2022-01-15 07:38] LABS: Hepatitis A Antibody IgM 0.17 Index (0-0.79); ~Hepatitis A Antibody IgM Nonreactive (Nonreactive)
[2022-01-18 12:02] LABS: Alpha Fetoprotein 2.2 ng/mL
[2022-01-19 14:51] LABS: Anti Nuclear Antibody Screen POSITIVE (NEGATIVE); Anti Nuclear Antibody Titer 1:40 titer
[2022-01-20 15:42] LABS: Mitochondrial Antibodies NEGATIVE (NEGATIVE)
[2022-01-20 23:11] LABS: Smooth Muscle Antibody <20 U (<20)
== END 2022-01-14 09:13 | disposition home or self-care (01) ==
LOC: HO.LAB 09:12
PROVIDERS: PCP Nurse Practitioner Family; Visit Provider Nurse Practitioner
DX: Z11.4 Encounter for screening for human immunodeficiency virus [HIV] (principal); R17 Unspecified jaundice
CPT/HCPCS: 36415; 82105; 82248; 82728; 82977; 86015; 86038; 86039; 86255; 86256; 86704; 86706; 86709; 86803; 87340; 87389; 99202; 99212

== ENCOUNTER 2022-01-21 12:51 | Outpatient (REF) | payer OTHER, SELFPAY ==
[2022-01-21 13:54] LABS: MANUAL DIFF FLAG NO
[2022-01-21 14:12] LABS: Basophils Percent Auto 0.6 % (0-2); Eosinophils Absolute Auto 0.1 X10*3/uL (0.0-0.4); Eosinophils Percent Auto 2.2 % (0-4); Hematocrit 41.1 % (37.0-47.0); Hemoglobin 13.2 g/dl (12.0-16.0); Imm Gran Abs Auto 0.02 X10*3/uL (0.00-0.03); Imm Gran Pct Auto 0.4 % (0.0-0.4); Lymphocytes Absolute Auto 1.7 X10*3/uL (1.2-4.9); Lymphocytes Percent Auto 33.5 % (20-40); Mean Corpuscular HGB Conc 32.1 g/dl (31.0-35.0); Mean Corpuscular Hemoglobin 30.1 pg (27.0-33.0); Mean Corpuscular Volume 93.8 fL (80.0-98.0); Mean Platelet Volume 10.7 fL (9.4-12.3); Monocytes Absolute Auto 0.3 X10*3/uL (0.1-1.2); Monocytes Percent Auto 5.4 % (2-11); Neutrophils Absolute Auto 2.9 x10*3/uL (2.0-8.3); Neutrophils Percent Auto 57.9 % (45-73); Platelet Count 248 X10*3/uL (160-400); Red Blood Count 4.38 X10*6/uL (4.20-5.50); Red Cell Distribution Width 12.7 % (11.0-16.0)
[2022-01-21 14:37] LABS: Alanine Aminotransferase 34 U/L (0-31); Albumin Level 4.6 g/dL (3.5-5.0); Alkaline Phosphatase 93 U/L (39-117); Anion Gap 12 (12-20); Aspartate Amino Transferase 23 U/L (5-31); Bilirubin Total 1.2 mg/dL (0.0-1.0); Blood Urea Nitrogen 9 mg/dL (9-16); Calcium 9.2 mg/dL (8.4-10.2); Carbon Dioxide 27 mmol/L (22-29); Chloride 103 mmol/L (96-108); Estimated Glomerular Filt Rate > 60; Glucose Random 93 mg/dL (60-115); Potassium 4.6 mmol/L (3.3-5.1); Sodium 137 mmol/L (135-145); Total Protein 8.1 g/dL (6.5-8.0)
[2022-01-21 14:43] LABS: B Type Natriuretic Peptide 11 pg/mL (<100)
== END 2022-01-21 12:52 | disposition home or self-care (01) ==
LOC: HO.HMGCLDS 12:51
PROVIDERS: PCP Nurse Practitioner Family; Visit Provider Nurse Practitioner Family
DX: R60.0 Localized edema (principal)
CPT/HCPCS: 36415; 80053; 83880; 85025

== ENCOUNTER 2022-03-04 10:25 | Outpatient (REF) | payer OTHER, SELFPAY ==
--- NOTE | ~2022-03-04 | US_ITS ---
EXAMINATION: US COMPLETE ABDOMEN WITH LIVER ELASTOGRAPHY CLINICAL INFORMATION: Jaundice. COMPARISON: Previous abdominal and pelvic CT June 2019. TECHNIQUE: Real-time imaging of the abdominal viscera. Noninvasive ultrasound liver fibrosis assessment is performed using Aniya ElastPQ point quantification shear wave elastography (2D-SWE) with a C5-2 MHz transducer. Multiple elastography samples are obtained. FINDINGS: PANCREAS: Normal. ABDOMINAL AORTA: The proximal, middle, and distal aortic segments are normal in caliber. INFERIOR VENA CAVA: Visualized portions are normal. LIVER: Liver echotexture may be slightly increased. The liver demonstrates normal size and contour. No focal lesion or intrahepatic biliary duct dilatation. The right lobe measures 15 cm in length. The left lobe measures 11 cm in length. Portal flow is normal/hepatopedal. Shear wave liver elastography median stiffness is 1.67 m/s (reference: normal median stiffness is 1.3 m/s or less). IQR/median stiffness to assess sampling precision is 0.01 (reference: good quality data set is IQR/median stiffness of 0.15 or less). GALLBLADDER: Normal. The gallbladder is physiologically distended without evidence of stones, sludge, polyps, wall thickening or pericholecystic fluid. COMMON BILE DUCT: Normal in caliber measuring 0.4 cm in diameter. RIGHT KIDNEY: Normal. No hydronephrosis. No renal calculi or focal parenchymal lesions. The kidney measures 10.3 cm in maximum dimension. LEFT KIDNEY: Normal. No hydronephrosis. No renal calculi or focal parenchymal lesions. The kidney measures 11.6 cm in maximum dimension. SPLEEN: Normal. The spleen measures 10 cm in maximum dimension. FREE FLUID: None. US/US abdomen comp w elastography IMPRESSION: 1. Slightly echogenic liver otherwise normal abdominal ultrasound. 2. Liver elastography: Adequate liver sampling. Borderline elevated liver stiffness. REFERENCE: Society of Radiologists in Ultrasound Liver Stiffness Thresholds (2020): LIVER STIFFNESS THRESHOLDS: *Liver Stiffness equal or less than 1.3 m/s: High probability of being normal. *Liver Stiffness less than 1.7 m/s: *Liver Stiffness 1.7-2.1 m/s: Suggestive of compensated advanced chronic liver disease but need further test for confirmation. *Liver Stiffness over 2.1 m/s: Rules in compensated advanced chronic liver disease. *Liver Stiffness over 2.4 m/s: Suggestive of clinically significant portal hypertension. QUALITY OF DATA SET: *IQR/Median value equal or less than 0.15 implies a quality data set. *IQR/Median value over 0.15 implies a poor quality data set. SIGNIFICANT CHANGE FROM PRIOR EXAM: Significant change if liver stiffness measurement is 10% or greater from prior exam. OTHER CONSIDERATIONS: The stage of liver fibrosis may be overestimated in the setting of acute hepatitis, liver inflammation, elevated liver function tests, hepatic vascular congestion, obstructive cholestasis, non-fasting state, and infiltrative diseases such as amyloidosis and lymphoma. In some patients with NAFLD, the liver stiffness thresholds for compensated advanced chronic liver disease may be lower. In causes other than viral hepatitis and NAFLD, liver stiffness thresholds are not well established.
== END 2022-03-04 10:26 | disposition home or self-care (01) ==
LOC: HO.US 10:25
PROVIDERS: Visit Provider Nurse Practitioner
DX: R17 Unspecified jaundice (principal)
CPT/HCPCS: 76705; 76981

== ENCOUNTER → 2022-03-30 13:45 | Outpatient (BNVA) | payer OTHER, SELFPAY | PROVIDERS: PCP Nurse Practitioner Family; Visit Provider Internal Medicine Pulmonary Disease | DX: R06.09 Other forms of dyspnea (principal); J98.4 Other disorders of lung | CPT/HCPCS: 99212 ==

== ENCOUNTER 2022-04-19 14:04 | Outpatient (REF) | payer OTHER, SELFPAY ==
--- NOTE | 2022-04-19 17:32 | PFT_ITS ---
INDICATION: Dyspnea. SPIROMETRY: FEV1 to FVC of 85% with an FEV1 of 2.16 L, which is 86% predicted; FVC of 2.53 L, which is 82% predicted. No significant response to bronchodilators noted. To note, the patient does have evidence of small airways disease. Maximum voluntary ventilation 98% predicted. LUNG VOLUMES: Total lung capacity 92% predicted. DIFFUSION CAPACITY: DLCO 89% predicted. COMPARISONS: PFTs in 2019. INTERPRETATION: No obstructive nor restrictive ventilatory defects identified. No significant response to bronchodilators noted. Again, there is evidence of small airways disease. Lung volumes are within normal limits. Diffusion capacity also within normal limits. When compared to 2019, there is significant decrease in the FVC, a trend decrease in the FEV1, a trend increase in the total lung capacity, and a significant decrease in the diffusion capacity. If asthma is in the differential, methacholine challenge may be helpful in assessing for hyper-reactive airways. Otherwise, clinical correlation warranted. MD JOHAN Perea/MODL / [id number]
== END 2022-04-19 14:05 | disposition home or self-care (01) ==
LOC: HO.RESP 14:04
PROVIDERS: PCP Nurse Practitioner Family; Visit Provider Internal Medicine Pulmonary Disease
DX: R06.09 Other forms of dyspnea (principal)
CPT/HCPCS: 94060; 94727; 94729

== ENCOUNTER → 2022-05-05 13:13 | Outpatient (REF) | payer OTHER, SELFPAY ==
--- NOTE | 2022-05-05 13:16 | CA_ITS ---
Transthoracic Echocardiogram Patient (Last, First, Middle): Ciara Aquino L Gender: Female Date of : 1975 Age: 47 Procedure Date: 05/05/2022 Procedure Type: Transthoracic Echocardiogram Location: OP Height: 152.4 cm Weight: 63.5 kg BSA: 1.60 m2 Heart Rate: 56 bpm BP: 135 / 85 mmHg Press Worker Helper: KOJO Lovett MD: Jovani Arciniega MD Film Processor: Singh Nix MD Symptoms: R06.09 - Other forms of dyspnea Study Quality: Adequate ECG Rhythm: Bradycardia Conclusions: - Essentially normal study Findings Left Ventricle Normal left ventricular size, thickness, and systolic function. The visually estimated ejection fraction is between 60-65%. Spectral Doppler is indicative of a normal filling pattern. Right Ventricle Normal right ventricular cavity size and systolic function. Atria Both atria are normal in size. There is no evidence of interatrial shunt. Aortic Valve Normal aortic valve structure and function. There is no aortic valve stenosis. There is no aortic valve regurgitation. Mitral Valve Normal mitral valve structure and function. There is trace mitral valve regurgitation. There is no mitral valve stenosis. Pulmonic Valve The pulmonic valve is likely normal. Tricuspid Valve Normal tricuspid valve structure. There is trace tricuspid valve regurgitation. The right ventricular systolic pressure is normal. The right ventricular systolic pressure is 17 mmHg. Normal right atrial pressure. There is no evidence of pulmonary hypertension. Great Vessels All visible segments of the aorta are normal in size. The pulmonary artery was not well visualized. Venous The inferior vena cava is normal in size and collapses greater than 50% with inspiration. Pericardium/Pleural There is no evidence of pericardial effusion. Prior Study Comparison No significant change compared to prior study dated: 08/17/2019. Measurements 2D Linear Measurements IVSd: 0.66 0.6-0.9/0.6-1.0 cm LVIDd: 4.26 3.9-5.3/4.2-5.9 cm LVIDd Index: 2.66 2.4-3.2/2.2-3.1 cm/m2 LVIDs: 2.52 2.0-3.6 cm LVPWd: 0.75 0.7-1.1 cm LA Diam: 2.90 2.7-3.8/3.0-4.0 cm LAIDs Index: 1.81 1.5-2.3 cm/m2 LV Mass: 109.38 67-162/88-224 g LV Mass Index: 68.36 43-95/49-115 g/m2 LVOT Diam: 1.80 3.0+(-)1.3 cm 2D Systolic Function EF 4C: 62.20 >55% EF 2C: 61.70 >55% EF BiP: 63.80 >55% Mitral Valve MV Pk E: 0.76 MV PK A: 0.54 MV Decel Time: 236.00 E/A: 1.40 E'Lateral: 11.70 E'Medial: 10.80 E/E' Med: 7.00 E/E' Lat: 6.50 PHT: 69.00 MVA PHT: 3.19 Decel [place]: 3.21 Aortic Valve AoV Pk Eric: 1.16 AoV Mn Eric: 0.78 AoV VTI: 0.27 AoV Pk Grad: 5.00 Aov Mn Grad: 3.00 YASMIN Cont.VTI: 1.89 LVOT LVOT Pk Eric: 0.79 LVOT Mn Eric: 0.59 LVOT VTI: 0.20 LVOT Pk Grad: 3.00 LVOT Mn Grad: 2.00 LVOT Diam: 1.80 LVOT Area: 2.54 Diastolic Function MV Pk E: 0.76 MV Pk A: 0.54 E/A: 1.40 E'Medial: 10.80 E/E' Med: 7.00 E' Laterial: 11.70 E/E' Lat: 6.50 Right Ventricle TAPSE (mm): 26.50 TVS' Eric: 11.20 Tricuspid Valve TR Pk Eric: 1.89 TR Pk Grad: 14.00 RA Press: 3.00 RVSP: 17.00 Great Vessels Aorta Sinus of Valsalva: 3.20 2.0-3.5 cm Ao Asc: 2.80 2.1-3.4 cm Pulmonary Valve PV Pk Eric: 0.83 Peak PV Grad: 3.00 Updated in Other Vendor System with Status of Final Singh Nix MD electronically signed on 05/05/2022 5:35:20 PM with status of Final
== END ==
LOC: HO.CARD 13:13
PROVIDERS: PCP Nurse Practitioner Family; Visit Provider Internal Medicine Pulmonary Disease
DX: R06.09 Other forms of dyspnea (principal)
CPT/HCPCS: 93306

== ENCOUNTER → 2022-05-06 15:38 | Outpatient (BNVA) | payer OTHER, SELFPAY | PROVIDERS: PCP Nurse Practitioner Family; Visit Provider Internal Medicine Pulmonary Disease | DX: J98.4 Other disorders of lung (principal); R06.09 Other forms of dyspnea | CPT/HCPCS: 99212 ==

== ENCOUNTER → 2022-05-27 12:48 | Outpatient (BNVA) | payer OTHER, SELFPAY | PROVIDERS: PCP Nurse Practitioner Family; Visit Provider Nurse Practitioner | DX: E80.4 Gilbert syndrome (principal); K75.81 Nonalcoholic steatohepatitis (NASH) | CPT/HCPCS: 99212 ==

== ENCOUNTER 2022-08-09 09:27 | Outpatient (REF) | payer OTHER, SELFPAY ==
[2022-08-09 11:20] LABS: MANUAL DIFF FLAG NO
[2022-08-09 11:31] LABS: Basophils Percent Auto 0.9 % (0-2); Eosinophils Absolute Auto 0.1 X10*3/uL (0.0-0.4); Eosinophils Percent Auto 2.4 % (0-4); Hematocrit 40.3 % (37.0-47.0); Hemoglobin 13.3 g/dl (12.0-16.0); Imm Gran Abs Auto 0.01 X10*3/uL (0.00-0.03); Imm Gran Pct Auto 0.2 % (0.0-0.4); Lymphocytes Percent Auto 44.5 % (20-40); Mean Corpuscular Hemoglobin 30.2 pg (27.0-33.0); Mean Corpuscular Volume 91.6 fL (80.0-98.0); Mean Platelet Volume 11.2 fL (9.4-12.3); Monocytes Absolute Auto 0.3 X10*3/uL (0.1-1.2); Monocytes Percent Auto 6.9 % (2-11); Neutrophils Percent Auto 45.1 % (45-73); Platelet Count 252 X10*3/uL (160-400); Red Cell Distribution Width 11.9 % (11.0-16.0); White Blood Count 4.5 X10*3/uL (4.8-10.8)
[2022-08-09 11:44] LABS: Appearance Urine Cloudy; Color Urine Yellow; Glucose Urine UA Negative (Negative); Leukocyte Esterase Urine Negative (Negative); Nitrite Urine Negative (Negative); PH 5.5 (5.0-9.0); Specific Gravity - Urine 1.025 (1.005-1.025); Urine Blood Negative (Negative); Urine Ketones Trace mg/dL (Negative); Urine Protein Negative (Neg-Trace)
[2022-08-09 11:48] LABS: Alanine Aminotransferase 14 U/L (0-31); Albumin Level 4.6 g/dL (3.5-5.0); Alkaline Phosphatase 64 U/L (39-117); Anion Gap 10 (12-20); Aspartate Amino Transferase 16 U/L (5-31); Bilirubin Total 1.4 mg/dL (0.0-1.0); Blood Urea Nitrogen 14 mg/dL (9-16); Calcium 9.3 mg/dL (8.4-10.2); Carbon Dioxide 25 mmol/L (22-29); Chloride 107 mmol/L (96-108); Cholesterol 149 mg/dL; Estimated Glomerular Filt Rate > 60; Glucose Fasting 100 mg/dL (60-99); HDL Cholesterol 41 mg/dL; LDL Cholesterol Calculated 86 mg/dl; Potassium 4.4 mmol/L (3.3-5.1); Sodium 138 mmol/L (135-145); Total Protein 7.7 g/dL (6.5-8.0); Triglycerides 110 mg/dL
[2022-08-09 12:00] LABS: TSH reflex Free T4 3.43 uIU/mL (0.32-4.0)
== END 2022-08-09 09:28 | disposition home or self-care (01) ==
LOC: HO.HMGCLDS 09:27
PROVIDERS: PCP Nurse Practitioner Family; Visit Provider Nurse Practitioner Family
DX: J98.4 Other disorders of lung (principal); R06.09 Other forms of dyspnea
CPT/HCPCS: 36415; 80053; 80061; 81003; 84443; 85025

== ENCOUNTER → 2022-10-05 14:13 | Outpatient (BNVA) | payer OTHER, SELFPAY | PROVIDERS: PCP Nurse Practitioner Family; Visit Provider Internal Medicine Pulmonary Disease | DX: J98.4 Other disorders of lung (principal); R06.09 Other forms of dyspnea | CPT/HCPCS: 99212 ==

== ENCOUNTER 2022-11-11 12:22 | Outpatient (REF) | payer OTHER, SELFPAY ==
[2022-11-13 15:23] LABS: H Pylori Breath Test Negative (Negative)
== END 2022-11-11 12:23 | disposition home or self-care (01) ==
LOC: HO.LNP 12:22
PROVIDERS: PCP Nurse Practitioner Family; Visit Provider Nurse Practitioner
DX: E80.4 Gilbert syndrome (principal); R14.0 Abdominal distension (gaseous); Z11.0 Encounter for screening for intestinal infectious diseases
CPT/HCPCS: 83013; 99212

== ENCOUNTER 2022-11-30 10:29 | Outpatient (REF) | payer OTHER, SELFPAY ==
[2022-11-30 11:16] LABS: MANUAL DIFF FLAG NO
[2022-11-30 11:35] LABS: Basophils Percent Auto 0.6 % (0-2); Eosinophils Absolute Auto 0.1 X10*3/uL (0.0-0.4); Hematocrit 40.4 % (37.0-47.0); Hemoglobin 13.5 g/dl (12.0-16.0); Imm Gran Abs Auto 0.02 X10*3/uL (0.00-0.03); Imm Gran Pct Auto 0.4 % (0.0-0.4); Lymphocytes Absolute Auto 1.6 X10*3/uL (1.2-4.9); Lymphocytes Percent Auto 32.2 % (20-40); Mean Corpuscular HGB Conc 33.4 g/dl (31.0-35.0); Mean Corpuscular Hemoglobin 31.6 pg (27.0-33.0); Mean Corpuscular Volume 94.6 fL (80.0-98.0); Mean Platelet Volume 11.3 fL (9.4-12.3); Monocytes Absolute Auto 0.3 X10*3/uL (0.1-1.2); Monocytes Percent Auto 6.3 % (2-11); Neutrophils Percent Auto 58.5 % (45-73); Platelet Count 224 X10*3/uL (160-400); Red Blood Count 4.27 X10*6/uL (4.20-5.50); Red Cell Distribution Width 12.2 % (11.0-16.0); White Blood Count 5.1 X10*3/uL (4.8-10.8)
[2022-11-30 12:20] LABS: Alanine Aminotransferase 11 U/L (0-31); Albumin Level 4.6 g/dL (3.5-5.0); Alkaline Phosphatase 70 U/L (39-117); Anion Gap 12 (12-20); Aspartate Amino Transferase 14 U/L (5-31); Blood Urea Nitrogen 11 mg/dL (9-16); Calcium 9.2 mg/dL (8.4-10.2); Carbon Dioxide 26 mmol/L (22-29); Chloride 108 mmol/L (96-108); Estimated Glomerular Filt Rate > 60; Glucose Random 89 mg/dL (60-115); Potassium 4.7 mmol/L (3.3-5.1); Sodium 141 mmol/L (135-145); Total Protein 7.6 g/dL (6.5-8.0)
[2022-11-30 12:41] LABS: TSH reflex Free T4 2.61 uIU/mL (0.32-4.0)
== END 2022-11-30 10:30 | disposition home or self-care (01) ==
LOC: HO.HMGCLDS 10:29
PROVIDERS: PCP Nurse Practitioner Family; Visit Provider Nurse Practitioner Family
DX: J98.4 Other disorders of lung (principal)
CPT/HCPCS: 36415; 80053; 84443; 85025

== ENCOUNTER 2023-04-19 08:41 | Outpatient (AMB) | payer OTHER, SELFPAY ==
--- NOTE | 2023-04-19 08:54 | MHC.PC.OV ---
Vital Signs 04/19/23 08:57 Height 5 ft Weight 154 lb BMI 30.1 BP 138/86 Blood Pressure Location Lt brachial Position Sitting Pulse 76 Pulse Source Pulse Oximeter Pulse Oximetry (%) 97 Oxygen Delivery Method Room Air Intake Visit Reasons: Annual PE Allergies lactose [LACTOSE] Allergy (Unknown, Verified 04/19/23 08:59) DIARRHEA milk [MILK] Adverse Reaction (Unknown, Verified 04/19/23 08:59) DIARRHEA Medication List - Last Reconciled 04/19/23 by PHILLIP Tellez acetaminophen (Tylenol Extra Strength) 500 mg PO Q6H PRN 30 days atorvastatin 10 mg PO DAILY 90 days cholecalciferol (vitamin D3) (Vitamin D3) 50 mcg PO DAILY clonazepam 1 mg PO BID PRN escitalopram oxalate 20 mg PO DAILY gabapentin 400 mg PO TID 30 days lorazepam 1 mg PO Q12H PRN 30 days peg 3350-electrolytes 236-22.74-6.74 -5.86 gram (Golytely) 240 mL PO Q10M 1 day quetiapine 25 mg PO BEDTIME quetiapine 100 mg PO BEDTIME spironolactone 100 mg PO 2 tabs in morning, 1 tab at night; sumatriptan succinate 50 mg PO ONCE PRN 10 days Tobacco use date assessed: 04/19/23 Dental Screening Dental Screen Date: 04/19/23 Did you have a dental visit in the last 12 months?: Yes Did you have a dental problem in the last 6 months where you did not have access to dental care?: No Was dental information given to patient?: Patient has dentist HPI Annual PE HPI Details Pt is here for a PE. Will order labs. Pt will schedule her colon screen. Due for mammo, will order, pt knows she is overdue. 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 Pt is following up with pulmonology. Hx of vitamin D and B12 deficiencies, will order labs. 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 Paternal Grandfather No problems noted. Paternal Grandmother No problems noted. Brother No problems noted. Sister No problems noted. Social History Housing: House Alcohol intake: never Patient Tobacco Use Status: Former Tobacco user Tobacco use type: Cigarette e-Cigarette/Vaping Use: Never Used Second Hand Smoke Exposure: No service: No Current occupational status: disabled (temp disabled ) Current occupational exposures/hazards: No Cognitive needs: No Hearing needs: No Vision needs: Yes Questionnaire Thrive Questionnaire Date Thrive assessed: 08/24/22 JUAN PABLO-7 AMB Questionnaire JUAN PABLO-7 Date JUAN PABLO - 7 assessed: 08/24/22 Source: Developed by Drs. Benigno Chan, Stephany Howell, Jeffry Cormier and colleagues, with an educational jaison from [employer]. Review of Systems Const Denies chills and Denies fever(s) Eyes Denies blurry vision ENT Denies vertigo, Denies dizziness and Denies sore throat Card Denies chest pain at rest, Denies chest pain with activity, Denies diaphoresis, Denies dyspnea and Denies dyspnea on exertion Resp Denies cough, Denies dyspnea, Denies dyspnea on exertion and Denies wheezing GI Denies abdominal pain, Denies melena, Denies hematochezia, Denies constipation, Denies diarrhea and Denies loose stools Denies hematuria Musc Denies numbness and Denies tingling Skin/Breast Denies lesions Neuro Denies vertigo, Denies dizziness, Denies numbness and Denies tingling Psych Denies anxiety, Denies depression, Denies homicidal ideation, Denies suicidal ideation and Denies other (substance abuse) Aller/Immun Denies wheezing Physical exam (Primary Care) Vital Signs: Last Vital Signs Pulse 76 04/19/23 08:57 BP 138/86 04/19/23 08:57 Pulse Ox 97 04/19/23 08:57 Oxygen Delivery Method Room Air 04/19/23 08:57 BMI result Body Mass Index 30.1 Tobacco/Smoking Status: Tobacco use Status Tobacco use date assessed 04/19/23 04/19/23 09:03 Patient Tobacco Use Status Former Tobacco user 04/19/23 09:03 Tobacco use type Cigarette 04/19/23 09:03 e-Cigarette/Vaping Use Never Used 04/19/23 09:03 Thrive Assessment: Date of Thrive Assessment Date Thrive assessed 08/24/22 04/19/23 09:03 Const General: cooperative Nutritional Appearance: well nourished Orientation/consciousness: patient oriented x3 HENMT Head: Yes normal to inspection, Yes normocephalic and Yes atraumatic Ears: TM's normal bilaterally Eyes General: appearance normal, both eyes and all related structures Alignment and Position: alignment normal and position normal Neck Neck: Yes normal visual inspection and Yes no lymphadenopathy Thyroid: Thyroid normal Resp Effort & Inspection: normal respiratory effort Auscultation: clear to auscultation bilaterally Cardio Rate: regular rate Rhythm: regular rhythm Heart sounds: S1 normal heart sound present, S2 normal heart sound present and no murmurs GI Palpation (GI): Soft to palpation and nontender Auscultation: normal bowel sounds Skin Rashes: no rashes Neuro General: patient oriented x3, moves all extremities, no focal motor deficits and deep tendon reflexes 2+ bilaterally Romberg Test: Negative Psych Appearance: grossly normal Mental Status: mental status grossly normal Speech and movement: Normal speech and movement present Affect: normal affect Attitude: cooperative Thought process: Normal thought process present Thought content: Normal thought content present Insight: Good insight present (Psych) Judgement: Good judgement present (Psych) Assessment and Plan Assessment & Plan (1) Physical exam: Code(s): Z00.00 - Encounter for general adult medical examination without abnormal findings Plan: Labs ordered (2) Vitamin D deficiency: Code(s): E55.9 - Vitamin D deficiency, unspecified Plan: Labs ordered (3) Vitamin B12 deficiency: Code(s): E53.8 - Deficiency of other specified B group vitamins Plan: Labs ordered Plan The patient agreed to the use of a director of medical services for this encounter. Scribed for Stuart Timmons, COUNTY DIRECTOR-BC by Maria Del Rosario Zamora, director of medical services, on 04/19/2023 at 09:10 EST. Orders: Orders Complete Blood Count Auto Diff Today Z00.00 - Encounter for general adult medical examination without abnormal findings UA CC w/rflx Micro + Cult Today Z00.00 - Encounter for general adult medical examination without abnormal findings Vitamin D 25-OH Total Today E55.9 - Vitamin D deficiency, unspecified Vitamin B12 Today E53.8 - Deficiency of other specified B group vitamins MM screening mammo BI Today Z12.31 - Encounter for screening mammogram for malignant neoplasm of breast Comprehensive [place]. Panel Fast Today Z00.00 - Encounter for general adult medical examination without abnormal findings TSH reflex Free T4 Today Z00.00 - Encounter for general adult medical examination without abnormal findings Lipid Panel Today Z00.00 - Encounter for general adult medical examination without abnormal findings Coding Level of Care Code Est Pt Prev Care 40-64y([id number]) Diagnoses Physical exam Z00.00 Vitamin D deficiency E55.9 Vitamin B12 deficiency E53.8
[2023-04-19 08:57] VITALS: BP 138/86; PULSE 76; O2SAT 97; BMI 30.1
== END 2023-04-19 10:34 | disposition home or self-care (01) ==
PROVIDERS: Visit Provider Nurse Practitioner Family
DX: Z00.00 Encounter for general adult medical examination without abnormal findings (principal); E55.9 Vitamin D deficiency, unspecified; E53.8 Deficiency of other specified B group vitamins
CPT/HCPCS: 99396

== ENCOUNTER 2023-04-19 09:26 | Outpatient (REF) | payer OTHER, SELFPAY ==
[2023-04-19 11:40] LABS: MANUAL DIFF FLAG NO
[2023-04-19 11:43] LABS: Appearance Urine Clear; Color Urine Yellow; Glucose Urine UA Negative (Negative); Leukocyte Esterase Urine Negative (Negative); Nitrite Urine Negative (Negative); PH 6.5 (5.0-9.0); Urine Blood Negative (Negative); Urine Ketones Negative (Negative); Urine Protein Negative (Neg-Trace)
[2023-04-19 11:47] LABS: Basophils Percent Auto 0.6 % (0-2); Eosinophils Absolute Auto 0.1 X10*3/uL (0.0-0.4); Hematocrit 38.7 % (37.0-47.0); Imm Gran Abs Auto 0.02 X10*3/uL (0.00-0.03); Imm Gran Pct Auto 0.4 % (0.0-0.4); Lymphocytes Absolute Auto 1.8 X10*3/uL (1.2-4.9); Lymphocytes Percent Auto 33.1 % (20-40); Mean Corpuscular HGB Conc 33.6 g/dl (31.0-35.0); Mean Corpuscular Hemoglobin 31.4 pg (27.0-33.0); Mean Corpuscular Volume 93.5 fL (80.0-98.0); Mean Platelet Volume 11.2 fL (9.4-12.3); Monocytes Absolute Auto 0.3 X10*3/uL (0.1-1.2); Monocytes Percent Auto 5.3 % (2-11); Neutrophils Absolute Auto 3.2 x10*3/uL (2.0-8.3); Neutrophils Percent Auto 58.6 % (45-73); Platelet Count 222 X10*3/uL (160-400); Red Blood Count 4.14 X10*6/uL (4.20-5.50); Red Cell Distribution Width 12.2 % (11.0-16.0); White Blood Count 5.4 X10*3/uL (4.8-10.8)
[2023-04-19 13:08] LABS: Alanine Aminotransferase 22 U/L (0-31); Albumin Level 4.4 g/dL (3.5-5.0); Alkaline Phosphatase 78 U/L (39-117); Anion Gap 13 (12-20); Aspartate Amino Transferase 18 U/L (5-31); Bilirubin Total 0.7 mg/dL (0.0-1.0); Blood Urea Nitrogen 14 mg/dL (9-16); Calcium 9.7 mg/dL (8.4-10.2); Carbon Dioxide 23 mmol/L (22-29); Chloride 108 mmol/L (96-108); Cholesterol 178 mg/dL (<200); Estimated Glomerular Filt Rate > 60; Glucose Fasting 93 mg/dL (60-99); HDL Cholesterol 41 mg/dL (>40); LDL Cholesterol Calculated 98 mg/dL (<100); Potassium 3.7 mmol/L (3.3-5.1); Sodium 140 mmol/L (135-145); Total Protein 7.6 g/dL (6.5-8.0); Triglycerides 197 mg/dL (<150)
[2023-04-19 13:16] LABS: TSH reflex Free T4 2.57 uIU/mL (0.32-4.0); Vitamin D 25-OH Total 36.8 ng/mL (>30)
[2023-04-19 13:26] LABS: Vitamin B12 487 pg/mL (200-900)
== END 2023-04-19 09:27 | disposition home or self-care (01) ==
LOC: HO.HMGCLDS 09:26
PROVIDERS: PCP Nurse Practitioner Family; Visit Provider Nurse Practitioner Family
DX: Z00.00 Encounter for general adult medical examination without abnormal findings (principal); E55.9 Vitamin D deficiency, unspecified; E53.8 Deficiency of other specified B group vitamins; J98.4 Other disorders of lung
CPT/HCPCS: 36415; 80053; 80061; 81003; 82306; 82607; 84443; 85025

== ENCOUNTER 2023-05-02 10:31 | Outpatient (AMB) | payer OTHER, SELFPAY ==
[2023-05-02 10:33] VITALS: BP 111/72; PULSE 75; O2SAT 99; BMI 29.7
--- NOTE | 2023-05-02 10:33 | A.OFFVIS_ITS ---
Intake Vital Signs 05/02/23 10:33 Height 5 ft Weight 152 lb 1.903 oz BMI 29.7 BP 111/72 Blood Pressure Location Lt brachial Pulse 75 Pulse Source Doppler Pulse Oximetry (%) 99 Oxygen Delivery Method Room Air Intake Visit Reasons: Asthma Allergies lactose [LACTOSE] Allergy (Unknown, Verified 05/02/23 10:37) DIARRHEA milk [MILK] Adverse Reaction (Unknown, Verified 05/02/23 10:37) DIARRHEA HPI Asthma HPI Details 48-year-old lady previously seen for [facility] for SINGLETON, referred for lung biopsy and evaluation at [facility].? Patient states that she has had an biopsy negative for SINGLETON and until recently she was following up with [facility] pulmonary clinic for unclear etiology of underlying pulmonary process resulting in cystic lung disease.? However, recently her physician in [facility] has resigned and she does not have further subspecialty follow up. She continues to complain of intermittent sharp pains in her chest associated with feeling of passing out . She also complains of unrestful sleep waking up gasping for air. 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 Depression Dyslipidemia Elevated bilirubin Fall Fibromyalgia High triglycerides IBS (irritable bowel syndrome) Lumbar spondylosis Lymphangioleiomyomatosis Migraine Osteoarthritis Pain of right scapula Polycystic disease, ovaries Pulmonary HTN Spondylosis of lumbosacral joint without myelopathy Tinea cruris Surgical History History of section History of endoscopy History of laparoscopy History of lung biopsy History of tubal ligation Family History Father Unknown family medical history Mother HTN (hypertension) Non-insulin dependent diabetes mellitus Maternal Grandmother Cancer Mental health disorder Maternal Grandfather No problems noted. Paternal Grandfather No problems noted. Paternal Grandmother No problems noted. Brother No problems noted. Sister No problems noted. Social History Housing: House Alcohol intake: never Patient Tobacco Use Status: Former Tobacco user Tobacco use type: Cigarette e-Cigarette/Vaping Use: Never Used Second Hand Smoke Exposure: No service: No Current occupational status: disabled (temp disabled ) Current occupational exposures/hazards: No Cognitive needs: No Hearing needs: No Vision needs: Yes Review of Systems Const Denies daytime sleepiness, Denies excessive sweating, Denies fatigue, Denies fever(s), Denies lethargy, Denies malaise, Denies night sweats, Denies snoring and Denies weight loss Eyes Denies blurry vision and Denies itchy eyes ENT Denies nasal congestion, Denies post nasal drip, Denies sinus pain, Denies sinus pressure and Denies other ( Thrush) Card Reports chest pain (Intermittent, sharp), Denies pedal edema, Reports dyspnea, Denies orthopnea and Denies paroxysmal nocturnal dyspnea Resp Denies cough, Denies hemoptysis, Denies excessive phlegm production, Reports dyspnea, Denies snoring and Denies wheezing GI Denies abdominal pain and Denies heartburn Musc Denies myalgias, Denies arthralgias and Denies joint swelling Skin/Breast Denies rash Neuro Denies memory loss and Denies seizure-like activity Psych Denies abnormal sleep pattern, Denies anxiety and Denies memory loss Endo Denies excessive sweating, Denies fatigue and Denies heat intolerance James/Lymph Denies easy bruising Aller/Immun Denies itchy eyes, Denies seasonal rhinorrhea and Denies wheezing Physical Exam Vital Signs: Last Vital Signs Pulse 75 05/02/23 10:33 BP 111/72 05/02/23 10:33 Pulse Ox 99 05/02/23 10:33 Oxygen Delivery Method Room Air 05/02/23 10:33 BMI result Body Mass Index 29.7 Const General: no acute distress and alert Nutritional Appearance: not obese Orientation/consciousness: Other orientation findings ( oriented) HEENT Head: Yes atraumatic Eyes General: appearance normal, both eyes and all related structures Sclerae: sclerae normal EOM: EOMs intact bilaterally Neck Neck: Yes supple Lymphatic: no lymphadenopathy noted Resp Effort & Inspection: normal respiratory effort and no use of accessory muscles Auscultation: clear to auscultation bilaterally Cardio Rate: regular rate Rhythm: regular rhythm Heart sounds: no gallops, no murmurs and no rubs Skin General skin exam: other ( warm) Extrem General: No clubbing, No cyanosis and No edema Assessment & Plan Assessment & Plan (1) Cystic-bullous disease of lung: Code(s): J98.4 - Other disorders of lung Plan: No longer has suspicious to follow-up. Obtain records from [facility]. Will obtain CT chest/abdomen/pelvis and 2D echocardiogram for further evaluation. Will require further subspecialty follow-up after reviewing of records. (2) WAITE (dyspnea on exertion): Code(s): R06.09 - Other forms of dyspnea (3) Sleep apnea: Code(s): G47.30 - Sleep apnea, unspecified Plan: Unrestful sleep, multiple awakenings gasping for air, likely underlying sleep apnea. Keymar Sleepiness Scale score of 15. Will obtain in lab sleep study. 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
== END 2023-05-02 10:53 | disposition home or self-care (01) ==
PROVIDERS: PCP Nurse Practitioner Family; Visit Provider Internal Medicine Pulmonary Disease
DX: J98.4 Other disorders of lung (principal); R06.09 Other forms of dyspnea; G47.30 Sleep apnea, unspecified
CPT/HCPCS: 99214

== ENCOUNTER → 2023-05-02 10:31 | Outpatient (BNVA) | payer OTHER, SELFPAY | PROVIDERS: PCP Nurse Practitioner Family; Visit Provider Internal Medicine Pulmonary Disease | DX: R06.09 Other forms of dyspnea (principal); J98.4 Other disorders of lung; G47.30 Sleep apnea, unspecified | CPT/HCPCS: 99212 ==

== ENCOUNTER 2023-05-10 09:52 | Emergency (ER) | payer OTHER, SELFPAY ==
[2023-05-10 10:53] VITALS: BP 142/64; PULSE 76; RESP 17; TEMP 35.8; O2SAT 97; BMI 29.6
--- NOTE | 2023-05-10 11:00 | ED.GENADULT ---
HPI - General Adult General Chief complaint: General Medical Stated complaint: chest pain Time Seen by Provider: 05/10/23 20:39 Source: patient Mode of arrival: ambulatory Limitations: no limitations History of Present Illness HPI narrative: Patient is a 48-year-old female with history of cystic bullous lung disease presenting to emergency department for evaluation of left chest pain. She reports onset Tuesday, initially was felt below the breast and then radiated upwards towards her shoulder she describes it as a very sharp stabbing sensation that was severe. She reports history of similar pain in the past, but not as severe, she states that typically when she has these episodes of pain it causes her to nearly syncopized but on Tuesday she states that she did syncopized. She states that it was not for a long period, and she denies any head strike noted she was sitting down. She still has pain to the left anterior chest, and shortness of breath which she has at baseline. Currently she denies any headache, vision changes, neck pain, dizziness, lightheadedness, nausea, vomiting, abdominal pain, numbness or tingling of the extremities, weakness. Related Data Home Medications Medication Instructions Recorded Confirmed quetiapine 100 mg tablet 100 mg PO BEDTIME 08/24/22 04/19/23 quetiapine 25 mg tablet 25 mg PO BEDTIME 08/24/22 04/19/23 clonazepam 1 mg tablet 1 mg PO BID PRN 04/19/23 04/19/23 escitalopram oxalate 20 mg tablet 20 mg PO DAILY 04/19/23 04/19/23 Previous Rx's Medication Instructions Recorded sumatriptan succinate 50 mg tablet 50 mg PO ONCE PRN for headache 11/17/21 days #10 tabs lorazepam 1 mg tablet 1 mg PO Q12H PRN anxiety 30 days 01/25/22 #60 tabs acetaminophen 500 mg tablet 500 mg PO Q6H PRN pain or fever 08/24/22 (Tylenol Extra Strength) days #120 tabs peg 3350-electrolytes 236 240 ml PO Q10M 1 day #4,000 mL 11/11/22 gram-22.74 gram-6.74 gram-5.86 gram solution (Golytely) gabapentin 400 mg capsule 400 mg PO TID 30 days #90 caps 12/03/22 spironolactone 100 mg tablet 100 mg PO .COMPLEX #270 tabs 03/02/23 cholecalciferol (vitamin D3) 50 50 mcg PO DAILY #90 tabs 03/27/23 mcg (2,000 unit) tablet (Vitamin D3) atorvastatin 20 mg tablet 20 mg PO DAILY 90 days #90 tabs 04/19/23 Allergies Allergy/AdvReac Type Severity Reaction Status Date / Time lactose [LACTOSE] Allergy Unknown DIARRHEA Verified 05/02/23 10:37 milk [MILK] AdvReac Unknown DIARRHEA Verified 05/02/23 10:37 Review of Systems Review of Systems: Yes all other systems are reviewed and are negative [facility] Past Medical History Attestation statement: The following information was validated with the patient. 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 Paternal Grandfather No problems noted. Paternal Grandmother No problems noted. Brother No problems noted. Sister No problems noted. Social History Social History Housing: House Alcohol intake: never Patient Tobacco Use Status: Former Tobacco user Tobacco use type: Cigarette e-Cigarette/Vaping Use: Never Used Second Hand Smoke Exposure: No Advance Directives: No Advance Directives Information Provided: No service: No Current occupational status: disabled (temp disabled ) Current occupational exposures/hazards: No Cognitive needs: No Hearing needs: No Vision needs: Yes Physical Exam ED Vital Signs: Vital Signs - 24 hr 05/10/23 10:53 10/10/23 20:13 Temperature 96.5 F L Pulse Rate 76 89 Respiratory Rate 17 18 Blood Pressure 142/64 H 136/70 Pulse Oximetry 97 96 Oxygen Delivery Method Room Air Room Air BMI result Body Mass Index 29.6 Appearance: Alert.?Oriented to person, place and time. No acute distress.?Normal affect. Eyes: Pupils equal, round and reactive to light.? ENT: Pharynx normal.?? Neck: Normal inspection.? Neck supple.?? CVS: Heart sounds normal. Normal heart rate and rhythm.? Pulses normal.?? Respiratory: No respiratory distress.? Lung sounds clear to auscultation bilaterally?? Abdomen: Soft and non-tender. Normoactive bowel sounds. ? Skin: Skin warm and dry.? Normal skin color.? Extremities: No lower extremity edema.? Neuro: Moves all extremities spontaneously. Sensation intact bilaterally. Ambulates with normal steady gait. Course Course Course Narrative: This is an RME: Additional HPI, ROS, PE not included below will be deferred to primary provider. This is a 48-year-old female, with a history of cystic bullous disease of the lung, presenting to the emergency department with complaints of intermittent episodes of chest pain was sharp left-sided rib pain since Tuesday. Patient reports that she had a syncopal episode on Tuesday after having significant pain. Endorsing shortness of breath as well. No fevers or chills. Vital signs stable. Plan: EKG, chest x-ray, labs, further ER evaluation required. Reevaluation(s) Reevaluation #1: CBC and CMP are overall unremarkable. High sensitive troponin negative, given duration of symptoms and EKG without acute ischemic findings, unlikely ACS. D-dimer 157, unlikely pulmonary embolism. Chest x-ray revealing a platelike opacity of the right lower lobe with a trace pleural effusion, most likely atelectasis versus aspiration/infiltrate, patient has no symptoms on right, I suspect this to be part of her chronic lung disease. The left lung is clear on x-ray without evidence of acute abnormality. She is in no respiratory distress. 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 At this time feel that she is stable for discharge home, outpatient follow-up with her PCP/pulmonology. Discussed worrisome signs and symptoms that would warrant re-evaluation emergency department. All questions answered. Stable for discharge. Time: 22:17 Medical Decision Making Medical Decision Making [facility] Narrative: Patient is a 48-year-old female with past medical history of cystic lung disease previously thought to be SINGLETON but has been ruled out after biopsy, sleep apnea, any SAH, Gilbert's syndrome, fibromyalgia presenting to emergency department for evaluation of chest pain and syncope as per HPI. Upon review of her outpatient pulmonology notes with Dr. Arciniega done discussion with her this episode is most consistent with her prior episodes of chest pain in the ear syncope, although she does state that the pain was slightly worse on Tuesday. At this time the pain has improved, currently is a 3/10. She is in no apparent distress. Will obtain CBC to evaluate for leukocytosis/ anemia, CMP and lipase to evaluate for abnormal electrolytes /abnormal renal function/ abnormal hepatic/biliary function, EKG and troponin to evaluate for ischemia/ACS. Chest x-ray to evaluate for consolidation/ infiltrate/ mass/ pulmonary congestion. Differential Diagnosis Differential Diagnoses: The differential diagnosis associated with the presentation includes (ACS, pulmonary embolism, pneumonia, pneumothorax, musculoskeletal pain, GERD) Admission/Observation Consideration of admission/observation: Escalation of care including admission/observation considered (I considered admission for chest pain, see course narrative for further detail.) Lab Data [facility] Lab Attestation statement: I reviewed the patient's lab results. CBC is without leukocytosis or anemia. CMP is overall unremarkable. High sensitive troponin nondetectable. COVID-19/influenza/RSV negative. D-dimer 157, 05/10/23 11:05 05/10/23 11:05 Labs: Lab Results 05/10/23 05/10/23 05/10/23 Range/Units 11:05 12:14 21:07 WBC 4.9 (4.8-10.8) X10*3/uL RBC 4.39 (4.20-5.50) X10*6/uL Hgb 13.8 (12.0-16.0) g/dl Hct 40.6 (37.0-47.0) % MCV 92.5 (80.0-98.0) fL MCH 31.4 (27.0-33.0) pg MCHC 34.0 (31.0-35.0) g/dl RDW 11.9 (11.0-16.0) % Plt Count 266 (160-400) X10*3/uL MPV 10.3 (9.4-12.3) fL Immature Gran % (Auto) 0.4 (0.0-0.4) % Neut % (Auto) 54.6 (45-73) % Lymph % (Auto) 36.1 (20-40) % Davie % (Auto) 6.3 (2-11) % Eos % (Auto) 1.8 (0-4) % Baso % (Auto) 0.8 (0-2) % Lymph # (Auto) 1.8 (1.2-4.9) X10*3/uL Davie # (Auto) 0.3 (0.1-1.2) X10*3/uL Eos # (Auto) 0.1 (0.0-0.4) X10*3/uL Baso # (Auto) 0.0 (0.0-0.2) X10*3/uL Abs Immat Gran (auto) 0.02 (0.00-0.03) X10*3/uL Absolute Neuts (auto) 2.7 (2.0-8.3) x10*3/uL Absolute Nucleated RBC 0.000 (0.0-0.012) X10*3/uL Nucleated RBC % (auto) 0.0 (0.0-0.2) /100WBC D-Dimer High Sensitivty 157 NG/ML Sodium 139 (135-145) mmol/L Potassium 4.5 D (3.3-5.1) mmol/L Chloride 106 (96-108) mmol/L Carbon Dioxide 24 (22-29) mmol/L Anion Gap 14 (12-20) BUN 7 L (9-16) mg/dL Creatinine 0.68 (0.5-1.4) mg/dL Estim Creat Clear Calc 88.4 Estimated GFR > 60 Random Glucose 109 (60-115) mg/dL Calcium 9.2 (8.4-10.2) mg/dL Total Bilirubin 0.6 (0.0-1.0) mg/dL Direct Bilirubin 0.2 (0.0-0.5) mg/dL AST 20 (5-31) U/L ALT 16 (0-31) U/L Alkaline Phosphatase 76 (39-117) U/L Troponin I High Sens < 2.7 < 2.7 (<3.5-17.0) ng/L Total Protein 8.3 H (6.5-8.0) g/dL Albumin 4.6 (3.5-5.0) g/dL Influenza Type A (PCR) NEGATIVE (Negative) Influenza Type B (PCR) NEGATIVE (Negative) RSV RNA Qual (PCR) NEGATIVE (Negative) SARS-CoV-2 RNA (RT-PCR) NEGATIVE (Negative) Independent Interpretation I performed an independent interpretation of an: EKG and Plain X-Ray (I personally turbid chest x-ray and agree with radiologist impression.) Interpretation: Rate: 99 Rhythm:? Normal sinus rhythm Helix:? Normal Normal P waves.? Normal ANGELA.?? Normal QRS complex.?? ST T wave :??No ST elevation, no ST depression, no T-wave inversion qTC:456 prior studies:? June 2021 The study has been interpreted contemporaneously by me. Radiology Impression Discussion of test interpretation with radiology: I have reviewed the radiologist's reading. Radiologist Impression: XR/XR chest 2V IMPRESSION: 1. New platelike opacities in the right lower lobe are indeterminate and could be related with subsegmental atelectasis, less likely aspiration or developing infiltrates. 2. Trace amount of right-sided pleural fluid versus pleural thickening. Recommend short-term follow-up imaging to ensure resolution. External Record Review External record reviewed: Outpatient record Discharge Plan Discharge Clinical Impression: Chest pain Patient Disposition: Home, Self-Care Instructions: Chest Pain (ED) Prescriptions: No Action sumatriptan succinate 50 mg tablet 50 mg PO ONCE PRN (Reason: for headache) 10 Days Qty: 10 1RF Rx Instructions: may repeat x 1tab after 2 hrs if first tab does not work lorazepam 1 mg tablet 1 mg PO Q12H PRN (Reason: anxiety) 30 Days Qty: 60 0RF gabapentin 400 mg capsule 400 mg PO TID 30 Days Qty: 90 2RF spironolactone 100 mg tablet 100 mg PO .COMPLEX Qty: 270 1RF Rx Instructions: 100 mg PO 2 tabs in morning, 1 tab at night; cholecalciferol (vitamin D3) [Vitamin D3] 50 mcg (2,000 unit) tablet 50 mcg PO DAILY Qty: 90 1RF atorvastatin 20 mg tablet 20 mg PO DAILY 90 Days Qty: 90 3RF quetiapine 25 mg tablet 25 mg PO BEDTIME quetiapine 100 mg tablet 100 mg PO BEDTIME acetaminophen [Tylenol Extra Strength] 500 mg tablet 500 mg PO Q6H PRN (Reason: pain or fever) 30 Days Qty: 120 0RF escitalopram oxalate 20 mg tablet 20 mg PO DAILY clonazepam 1 mg tablet 1 mg PO BID PRN peg 3350-electrolytes [Golytely] 236-22.74-6.74 -5.86 gram recon soln 240 ml PO Q10M 1 Days Qty: 4000 0RF Rx Instructions: until fecal effluent is clear; do not exceed a total volume of 2,000 mL Referrals: Stuart Timmons, ENERGY RISK MANAGEMENT ANALYST-BC [Primary Care Provider] -
[2023-05-10 20:13] VITALS: BP 136/70; PULSE 89; RESP 18; O2SAT 96
== END 2023-05-10 22:31 | disposition home or self-care (01) ==
PROVIDERS: Emergency Provider Emergency Medicine Emergency Medical Services; PCP Nurse Practitioner Family
DX: R07.89 Other chest pain (principal); M25.512 Pain in left shoulder; Z20.822 Contact with and (suspected) exposure to COVID-19; Z20.828 Contact with and (suspected) exposure to other viral communicable diseases; Z79.899 Other long term (current) drug therapy; Z87.891 Personal history of nicotine dependence
CPT/HCPCS: 0241U; 36415; 71046; 80048; 80076; 84484; 85025; 85379; 93005; 99283

== ENCOUNTER 2023-05-17 12:23 | Outpatient (REF) | payer OTHER, SELFPAY ==
--- NOTE | ~2023-05-17 | MM_ITS ---
EXAMINATION: MM SCREENING DIGITAL BREAST TOMOSYNTHESIS, BILATERAL CLINICAL INFORMATION: Screening. Asymptomatic. COMPARISON: Mammography: This study is compared with prior exams dating back to 2021. TECHNIQUE: Digital breast tomosynthesis is performed in both the craniocaudal and mediolateral oblique views along with computer-aided detection (CAD). Synthesized 2D images are generated from the tomosynthesis. FINDINGS: The breasts are heterogeneously dense, which may obscure small masses (ACR BI-RADS breast composition Category c). There are no significant masses, abnormal calcifications, or other abnormalities. MM/MM tomosynthesis screening BI IMPRESSION: No mammographic evidence of malignancy. ASSESSMENT: BI-RADS BI-RADS 1 - Negative RECOMMENDATION: Routine annual mammography screening. 1 year F/U This examination should not preclude the clinical evaluation of a suspicious palpable abnormality. This patient's information was entered into a reminder system with a target due date for their next mammogram.
== END 2023-05-17 12:24 | disposition home or self-care (01) ==
LOC: HO.MAMMO 12:23
PROVIDERS: PCP Nurse Practitioner Family; Visit Provider Nurse Practitioner Family
DX: Z12.31 Encounter for screening mammogram for malignant neoplasm of breast (principal)
CPT/HCPCS: 77063; 77067

== ENCOUNTER → 2023-05-17 12:45 | Outpatient (BNV) | payer OTHER, SELFPAY | PROVIDERS: PCP Nurse Practitioner Family; Visit Provider Radiology Diagnostic Radiology | DX: Z12.31 Encounter for screening mammogram for malignant neoplasm of breast (principal) | CPT/HCPCS: 77063; 77067 ==

== ENCOUNTER → 2023-05-22 20:30 | Outpatient (BNV) | payer OTHER, SELFPAY | PROVIDERS: PCP Nurse Practitioner Family; Visit Provider Internal Medicine | DX: G47.61 Periodic limb movement disorder (principal) | CPT/HCPCS: 95810 ==

== ENCOUNTER → 2023-05-22 20:53 | Outpatient (REF) | payer OTHER, SELFPAY | LOC: HO.SL 20:53 | PROVIDERS: PCP Nurse Practitioner Family; Visit Provider Internal Medicine Pulmonary Disease | DX: G47.30 Sleep apnea, unspecified (principal) | CPT/HCPCS: 95810 ==

== ENCOUNTER 2023-05-31 10:51 | Outpatient (AMB) | payer OTHER, SELFPAY ==
--- NOTE | 2023-05-31 10:53 | A.OFFPC_ITS ---
Vital Signs 05/31/23 10:56 Height 5 ft Weight 153 lb BMI 29.9 BP 100/70 Blood Pressure Location Lt brachial Position Sitting Pulse 81 Pulse Source Pulse Oximeter Pulse Oximetry (%) 98 Oxygen Delivery Method Room Air Intake Visit Reasons: [place] [facility] chest pain Intake Note: Pt is here today for her [facility] [place] f/u chest pain Allergies lactose [LACTOSE] Allergy (Unknown, Verified 05/31/23 10:56) DIARRHEA milk [MILK] Adverse Reaction (Unknown, Verified 05/31/23 10:56) DIARRHEA Tobacco use date assessed: 05/31/23 Dental Screening Dental Screen Date: 05/31/23 Did you have a dental visit in the last 12 months?: Yes Did you have a dental problem in the last 6 months where you did not have access to dental care?: No Was dental information given to patient?: Patient has dentist HPI [place] [facility] chest pain HPI Details Pt was seen in the ER on 05/10 c/o left-sided chest pain. Labs were unremarkable. Troponin was negative. EKG showed no ischemia. D-dimer was 157, unlikely PE. Chest XR showed a platelike opacity of the right lower lobe with a trace pleural effusion, most likely atelectasis versus aspiration/infiltrate, left lung was clear. Pt is already following up with pulmonology due to cystic- bullous disease of the lung. Pt reports ongoing left upper chest discomfort that radiates laterally under her left breast. She reports that this can be made worse with palpation. denies any skin lesions/erythema. reports sometimes pain starts in her thoracic back region. EKG today shows NSR. Will order holter, though highly unlikely cardiac related. She has a chest CT scheduled for early June (chest/abd/pelvis). She has a follow up with pulmonology in July. Echo has also been ordered by pulmonology. Denies fever, chills, and excessive shortness of breath. ? fibro/muscle/skeletal vs neuro. 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 Paternal Grandfather No problems noted. Paternal Grandmother No problems noted. Brother No problems noted. Sister No problems noted. Social History Housing: House Alcohol intake: never Patient Tobacco Use Status: Former Tobacco user Tobacco use type: Cigarette e-Cigarette/Vaping Use: Never Used Second Hand Smoke Exposure: No service: No Current occupational status: disabled (temp disabled ) Current occupational exposures/hazards: No Cognitive needs: No Hearing needs: No Vision needs: Yes Questionnaire Thrive Questionnaire Date Thrive assessed: 08/24/22 JUAN PABLO-7 AMB Questionnaire JUAN PABLO-7 Date JUAN PABLO - 7 assessed: 08/24/22 Source: Developed by Drs. Benigno Chan, Stephany Howell, Jeffry Cormier and colleagues, with an educational jaison from [employer]. Review of Systems Const Reports as per HPI Physical exam (Primary Care) Vital Signs: Last Vital Signs Pulse 81 05/31/23 10:56 BP 100/70 05/31/23 10:56 Pulse Ox 98 05/31/23 10:56 Oxygen Delivery Method Room Air 05/31/23 10:56 BMI result Body Mass Index 29.9 Tobacco/Smoking Status: Tobacco use Status Tobacco use date assessed 05/31/23 05/31/23 11:00 Patient Tobacco Use Status Former Tobacco user 05/31/23 10:53 Tobacco use type Cigarette 05/31/23 10:53 e-Cigarette/Vaping Use Never Used 05/31/23 10:53 Thrive Assessment: Date of Thrive Assessment Date Thrive assessed 08/24/22 05/31/23 10:53 Const General: cooperative Orientation/consciousness: patient oriented x3 Chest Other: discomfort to left upper chest with palpation Resp Effort & Inspection: normal respiratory effort Auscultation: clear to auscultation bilaterally Cardio Rate: regular rate Rhythm: regular rhythm Heart sounds: S1 normal heart sound present and S2 normal heart sound present Back/Spine/Pelvis Other: no pain exacerbated with palpation of thoracic spine/thoracic paraspinous muscles Neuro General: patient oriented x3 Psych Appearance: grossly normal Mental Status: mental status grossly normal Speech and movement: Normal speech and movement present Affect: normal affect Attitude: cooperative Thought process: Normal thought process present Thought content: Normal thought content present Insight: Good insight present (Psych) Judgement: Good judgement present (Psych) Assessment and Plan Assessment & Plan (1) Chest pressure: Code(s): R07.89 - Other chest pain Plan: EKG done in office, holter ordered, echo was ordered by pulmonology, upcoming chest CT (2) Thoracic back pain: Code(s): M54.6 - Pain in thoracic spine (3) Cystic-bullous disease of lung: Code(s): J98.4 - Other disorders of lung Plan The patient agreed to the use of a medical library assistant for this encounter. Scribed for PHILLIP Medrano by Maria Del Rosario Zamora medical library assistant, on 05/31/2023 at 11:05 EST. Orders: Orders ECG 3 day holter monitor Today R07.89 - Other chest pain XR thoracic spine 2V Today M54.6 - Pain in thoracic spine Coding Level of Care Code Est Pt Level 3 (10054) Diagnoses Chest pressure R07.89 Thoracic back pain M54.6 Cystic-bullous disease of lung J98.4
[2023-05-31 10:56] VITALS: BP 100/70; PULSE 81; O2SAT 98; BMI 29.9
== END 2023-05-31 11:42 | disposition home or self-care (01) ==
PROVIDERS: PCP Nurse Practitioner Family; Visit Provider Nurse Practitioner Family
DX: R07.89 Other chest pain (principal); M54.6 Pain in thoracic spine; J98.4 Other disorders of lung
CPT/HCPCS: 99213

== ENCOUNTER 2023-06-07 10:16 | Outpatient (REF) | payer OTHER, SELFPAY ==
--- NOTE | ~2023-06-07 | CT_ITS ---
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 COMPARISON: Prior CT scans dating between 04/13/2021 and 07/11/2015. TECHNIQUE: Multidetector volumetric CT imaging of the chest, abdomen, and pelvis was obtained after the administration of 100 mL of Omnipaque 300 intravenous contrast without immediate adverse reactions. Axial MIP volume rendering provided. Sagittal and coronal reformatted images were obtained. This CT examination was performed using dose optimization techniques as appropriate, variously including the following: *Automated exposure control *Adjustment of mA and/or kV according to patient size (this includes techniques or standardized protocols for targeted exams where dose is matched to indication/reason for exam; i.e. extremities or head) *Use of iterative reconstruction technique DLP: 493 mGy-cm FINDINGS: LUNGS: No infiltrate or suspicious nodule identified. No significant radiographic change in innumerable, approximately 2 cm or less cysts scattered throughout both lungs compared with 04/13/2021. Postsurgical changes at the right lung base with associated surgical kristin. MEDIASTINUM: The mediastinum appears unremarkable. CORONARY ARTERY CALCIFICATION: None. PLEURA: There is no pleural effusion. No pleural mass or thickening. AXILLA: No lymphadenopathy by size criteria. LIVER, GALLBLADDER, AND BILIARY TREE: The liver appears unremarkable in size, shape, and attenuation. No focal hepatic lesion or biliary ductal dilatation is appreciated. Unremarkable appearance of the gallbladder. PANCREAS: Unremarkable SPLEEN: Unremarkable ADRENAL GLANDS: Unremarkable KIDNEYS AND URETERS: The kidneys appear unremarkable in size, shape, and attenuation. No hydronephrosis, hydroureter, or calculi seen. BLADDER: Unremarkable GASTROINTESTINAL TRACT: The small and large bowel appear unremarkable. No diverticulosis. Normal-appearing distal ileum and vermiform appendix. ABDOMINAL WALL: No significant hernia is appreciated. LYMPH NODES: No evidence of adenopathy by size criteria. VASCULAR: Unremarkable. PELVIC VISCERA: Suspect prior , similar in appearance compared with 06/05/2019. OSSEOUS STRUCTURES: Unremarkable. CT/CT abdomen pelvis wo IV con IMPRESSION: No significant radiographic change in innumerable, approximately 2 cm or less cysts scattered throughout both lungs compared with 04/13/2021. Postsurgical changes at the right lung base with associated surgical kristin. Suspect prior , similar in appearance compared with 06/05/2019.
--- NOTE | 2023-06-07 11:01 | CA_ITS ---
Transthoracic Echocardiogram Patient (Last, First, Middle): Ciara Aquino L Gender: Female Date of : 1975 Age: 48 Procedure Date: 06/07/2023 Procedure Type: Transthoracic Echocardiogram Location: OP Height: 152.4 cm Weight: 68.04 kg BSA: 1.65 m2 Heart Rate: bpm BP: 110 / 80 mmHg Spanish Interpreter: JENNIFER Referring MD: Jovani Arciniega MD Motorboat Mechanic Helper: Singh Nix MD Symptoms: R06.09 - Other forms of dyspnea Study Quality: Adequate ECG Rhythm: Sinus Conclusions: - Normal study Findings Left Ventricle Normal left ventricular size, thickness, and systolic function. The visually estimated ejection fraction is between 60-65%. Spectral Doppler is indicative of a normal filling pattern. Peak GLS is -20.9%, within normal limits. Right Ventricle Normal right ventricular cavity size and systolic function. Atria Both atria are normal in size. There is no evidence of interatrial shunt. Aortic Valve Normal aortic valve structure and function. There is no aortic valve stenosis. There is no aortic valve regurgitation. Mitral Valve Normal mitral valve structure and function. There is trace mitral valve regurgitation. There is no mitral valve stenosis. Pulmonic Valve The pulmonic valve is likely normal. There is trace pulmonic valve regurgitation. Tricuspid Valve Normal tricuspid valve structure. There is trace tricuspid valve regurgitation. The right ventricular systolic pressure is normal. The right ventricular systolic pressure is 19 mmHg. Normal right atrial pressure. There is no evidence of pulmonary hypertension. Great Vessels All visible segments of the aorta are normal in size. The visualized portions of the pulmonary artery and branches are normal. Venous The inferior vena cava is normal in size and collapses greater than 50% with inspiration. Pericardium/Pleural There is no evidence of pericardial effusion. Measurements 2D Linear Measurements IVSd: 0.74 0.6-0.9/0.6-1.0 cm LVIDd: 4.11 3.9-5.3/4.2-5.9 cm LVIDd Index: 2.49 2.4-3.2/2.2-3.1 cm/m2 LVIDs: 2.29 2.0-3.6 cm LVPWd: 0.86 0.7-1.1 cm LA Diam: 2.90 2.7-3.8/3.0-4.0 cm LAIDs Index: 1.76 1.5-2.3 cm/m2 LV Mass: 121.72 67-162/88-224 g LV Mass Index: 73.77 43-95/49-115 g/m2 LVOT Diam: 1.80 3.0+(-)1.3 cm 2D Systolic Function EF 4C: 61.90 >55% EF 2C: 57.80 >55% EF BiP: 60.20 >55% Mitral Valve MV Pk E: 0.81 MV PK A: 0.64 MV Decel Time: 169.00 E/A: 1.30 E'Lateral: 14.10 E'Medial: 11.00 E/E' Med: 7.30 E/E' Lat: 5.70 PHT: 50.00 MVA PHT: 4.40 Decel Ciales: 4.77 Aortic Valve AoV Pk Eric: 1.28 AoV Mn Eric: 0.89 AoV VTI: 0.28 AoV Pk Grad: 7.00 Aov Mn Grad: 4.00 YASMIN Cont.VTI: 2.13 LVOT LVOT Pk Eric: 1.03 LVOT Mn Eric: 0.69 LVOT VTI: 0.24 LVOT Pk Grad: 4.00 LVOT Mn Grad: 2.00 LVOT Diam: 1.80 LVOT Area: 2.54 Diastolic Function MV Pk E: 0.81 MV Pk A: 0.64 E/A: 1.30 E'Medial: 11.00 E/E' Med: 7.30 E' Laterial: 14.10 E/E' Lat: 5.70 Right Ventricle TAPSE (mm): 23.00 TVS' Eric: 12.50 Tricuspid Valve TR Pk Eric: 1.98 TR Pk Grad: 16.00 RA Press: 3.00 RVSP: 19.00 Great Vessels Aorta Sinus of Valsalva: 2.75 2.0-3.[address] Ridge: 2.36 1.7-3.4 cm Ao Asc: 2.60 2.1-3.4 cm Updated in Other Vendor System with Status of Final Singh Nix MD electronically signed on 06/07/2023 2:24:22 PM with status of Final
== END 2023-06-07 10:17 | disposition home or self-care (01) ==
LOC: HO.CT 10:16
PROVIDERS: PCP Nurse Practitioner Family; Visit Provider Internal Medicine Pulmonary Disease
DX: J98.4 Other disorders of lung (principal); E80.4 Gilbert syndrome; R06.09 Other forms of dyspnea
CPT/HCPCS: 71250; 74176; 93306; 93356

== ENCOUNTER → 2023-06-07 11:01 | Outpatient (BNV) | payer OTHER, SELFPAY | PROVIDERS: PCP Nurse Practitioner Family; Visit Provider Internal Medicine Cardiovascular Disease | DX: R07.9 Chest pain, unspecified (principal); R06.09 Other forms of dyspnea | CPT/HCPCS: 93306 ==

== ENCOUNTER 2023-07-06 10:18 | Outpatient (AMB) | payer OTHER, SELFPAY ==
[2023-07-06 10:22] VITALS: BP 128/70; PULSE 82; O2SAT 97; BMI 30.1
--- NOTE | 2023-07-06 10:22 | MHC.OFFVIS ---
Intake Vital Signs 07/06/23 10:22 Height 5 ft Weight 154 lb 5.177 oz BMI 30.1 BP 128/70 Blood Pressure Location Lt brachial Position Sitting Pulse 82 Pulse Source Pulse Oximeter Pulse Oximetry (%) 97 Oxygen Delivery Method Room Air Intake Visit Reasons: Asthma Intake Note: Patient states still have lung pain. 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 Patient states that she has had an biopsy negative for SINGLETON and until recently she was following up with [facility] pulmonary clinic for unclear etiology of underlying pulmonary process resulting in cystic lung disease.? However, recently her physician in [facility] has resigned and she does not have further subspecialty follow up. She continues to complain of intermittent sharp pains in her chest associated with feeling of passing out . She has completed her sleep study that showed no underlying sleep apnea, however significant restless leg symptoms. Her follow-up CT chest shows stable findings as compared to 2020. 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 Paternal Grandfather No problems noted. Paternal Grandmother No problems noted. Brother No problems noted. Sister No problems noted. Social History Housing: House Alcohol intake: never Patient Tobacco Use Status: Former Tobacco user Tobacco use type: Cigarette e-Cigarette/Vaping Use: Never Used Second Hand Smoke Exposure: No service: No Current occupational status: disabled (temp disabled ) Current occupational exposures/hazards: No Cognitive needs: No Hearing needs: No Vision needs: Yes Review of Systems Const Denies daytime sleepiness, Denies excessive sweating, Denies fatigue, Denies fever(s), Denies lethargy, Denies malaise, Denies night sweats, Denies snoring and Denies weight loss Eyes Denies blurry vision and Denies itchy eyes ENT Denies nasal congestion, Denies post nasal drip, Denies sinus pain, Denies sinus pressure and Denies other ( Thrush) Card Denies chest pain, Denies pedal edema, Denies dyspnea, Denies orthopnea and Denies paroxysmal nocturnal dyspnea Resp Denies cough, Denies hemoptysis, Denies excessive phlegm production, Denies dyspnea, Denies snoring and Denies wheezing GI Denies abdominal pain and Denies heartburn Musc Denies myalgias, Denies arthralgias and Denies joint swelling Skin/Breast Denies rash Neuro Denies memory loss and Denies seizure-like activity Psych Denies abnormal sleep pattern, Denies anxiety and Denies memory loss Endo Denies excessive sweating, Denies fatigue and Denies heat intolerance James/Lymph Denies easy bruising Aller/Immun Denies itchy eyes, Denies seasonal rhinorrhea and Denies wheezing Physical Exam Vital Signs: Last Vital Signs Pulse 82 07/06/23 10:22 BP 128/70 07/06/23 10:22 Pulse Ox 97 07/06/23 10:22 Oxygen Delivery Method Room Air 07/06/23 10:22 BMI result Body Mass Index 30.1 Const General: no acute distress and alert Nutritional Appearance: not obese Orientation/consciousness: Other orientation findings ( oriented) HEENT Head: Yes atraumatic Eyes General: appearance normal, both eyes and all related structures Sclerae: sclerae normal EOM: EOMs intact bilaterally Neck Neck: Yes supple Lymphatic: no lymphadenopathy noted Resp Effort & Inspection: normal respiratory effort and no use of accessory muscles Auscultation: clear to auscultation bilaterally Cardio Rate: regular rate Rhythm: regular rhythm Heart sounds: no gallops, no murmurs and no rubs Skin General skin exam: other ( warm) Extrem General: No clubbing, No cyanosis and No edema Assessment & Plan Assessment & Plan (1) Restless leg syndrome: Code(s): G25.81 - Restless legs syndrome Plan: Will start on ropinirole 0.25 mg at night. (2) Cystic-bullous disease of lung: Code(s): J98.4 - Other disorders of lung Plan: Unclear etiology. Imaging findings as stable since 2020. Previously followed at [facility] with no etiology noted. No longer has follow-up at [facility]. Will consider referral to [facility]. Will obtain brain MRI. Orders: Orders MR head/brain wo con Today J98.4 - Other disorders of lung Medications: New ropinirole administer 1-3 hours before bedtime 0.25 mg PO BEDTIME 30 tabs 6RF 30 days Coding Level of Care Code Est Pt Level 4 (80804) Diagnoses Restless leg syndrome G25.81 Cystic-bullous disease of lung J98.4
== END 2023-07-06 10:43 | disposition home or self-care (01) ==
PROVIDERS: PCP Nurse Practitioner Family; Visit Provider Internal Medicine Pulmonary Disease
DX: G25.81 Restless legs syndrome (principal); J98.4 Other disorders of lung
CPT/HCPCS: 99214

== ENCOUNTER → 2023-07-06 10:18 | Outpatient (BNVA) | payer OTHER, SELFPAY | PROVIDERS: PCP Nurse Practitioner Family; Visit Provider Internal Medicine Pulmonary Disease | DX: G25.81 Restless legs syndrome (principal); J98.4 Other disorders of lung | CPT/HCPCS: 99212 ==

== ENCOUNTER 2023-08-18 09:45 | Outpatient (AMB) | payer OTHER, SELFPAY ==
[2023-08-18 09:50] VITALS: BP 118/70; PULSE 101; O2SAT 98; BMI 30.9
--- NOTE | 2023-08-18 09:50 | A.OFFPC_ITS ---
Vital Signs 08/18/23 09:50 Height 5 ft Weight 158 lb BMI 30.9 BP 118/70 Blood Pressure Location Rt brachial Position Sitting Pulse 101 H Pulse Source Pulse Oximeter Pulse Oximetry (%) 98 Oxygen Delivery Method Room Air Intake Visit Reasons: 4 Monthf follow up Intake Note: pt is here for 4 month f.u routine, requesting refill on vitamin D3. 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 She reports that this is intermittent. Will order labs. Denies fever, chills, and dizziness. 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 Paternal Grandfather No problems noted. Paternal Grandmother No problems noted. Brother No problems noted. Sister No problems noted. Social History Housing: House Alcohol intake: never Patient Tobacco Use Status: Former Tobacco user Tobacco use type: Cigarette e-Cigarette/Vaping Use: Never Used Second Hand Smoke Exposure: No service: No Current occupational status: disabled (temp disabled ) Current occupational exposures/hazards: No Cognitive needs: No Hearing needs: No Vision needs: Yes Questionnaire PHQ-9 Over the last 2 weeks, how often have you been bothered by any of the following problems? 1. Little interest or pleasure in doing things: several days 2. Feeling down, depressed, or hopeless: several days 3. Trouble falling or staying asleep, or sleeping too much: several days 4. Feeling tired or having little energy: several days 5. Poor appetite or overeating: several days 6. Feeling bad about yourself - or that you are a failure or have let yourself or your family down: more than half the days 7. Trouble concentrating on things, such as reading the newspaper or watching television: several days 8. Moving or speaking so slowly that other people could have noticed. Or the opposite - being so fidgety or restless that you have been moving around a lot more than usual: more than half the days 9. Thoughts that you would be better off or of hurting yourself in some way: not at all Total score: 10 Depression Screening Interpretation: Positive Depression Screening Done: Yes 20067 - PHQ-9 Billing: Yes Source: Developed by Drs. Benigno Chan, Stephany Howell, Jeffry Cormier and colleagues, with an educational jaison from [employer]. Thrive Questionnaire Date Thrive assessed: 08/18/23 I am a: Patient What is your living situation today?: I have a steady place to live Within the past 12 months, did the food you bought not last and you didn't have the money to get more?: Never true Within the past 12 months, did you worry whether your food would run out before you got money to buy more?: Never true Do you have trouble paying for medicines?: No Do you have trouble getting transportation to medical appointments?: No Do you have trouble paying your heating and electricity bill?: Yes Do you have trouble taking care of your child, family member or friend?: I choose not to answer this question Do you have trouble with day-to-day activities such as bathing, preparing meals, shopping, managing finances, etc.?: Yes Are you currently unemployed and looking for a job?: No Are you interested in more education?: No Please select the resources that you would like help with: None JUAN PABLO-7 AMB Questionnaire JUAN PABLO-7 Date JUAN PABLO - 7 assessed: 08/18/23 Feeling nervous, anxious, or on edge: 1 = Several days Not being able to stop or control worryin = Several days Worrying too much about different things: 1 = Several days Trouble relaxin = Nearly every day Being so restless that it is hard to sit still: 3 = Nearly every day Becoming easily annoyed or irritable: 0 = Not at all Feeling afraid as if something awful might happen: 0 = Not at all Total JUAN PABLO-7 score (0-4 normal; 5-9 mild; 10-14 moderate; 15-21 severe): 9 Source: Developed by Drs. Benigno Chan, Stephany Howell, Jeffry Cormier and colleagues, with an educational jaison from [employer]. JUAN PABLO-7 Assessment Billing JUAN PABLO-7 Assessment Tool: JUAN PABLO-7 Assessment 36575 Review of Systems Const Reports as per HPI Physical exam (Primary Care) Vital Signs: Last Vital Signs Pulse 101 H 08/18/23 09:50 BP 118/70 08/18/23 09:50 Pulse Ox 98 08/18/23 09:50 Oxygen Delivery Method Room Air 08/18/23 09:50 BMI result Body Mass Index 30.9 Tobacco/Smoking Status: Tobacco use Status Tobacco use date assessed 08/18/23 08/18/23 09:55 Patient Tobacco Use Status Former Tobacco user 08/18/23 09:55 Tobacco use type Cigarette 08/18/23 09:55 e-Cigarette/Vaping Use Never Used 08/18/23 09:55 PHQ-9: PHQ-9 Score PHQ-9: Total score 10 08/18/23 10:20 Depression Screening Interpretation: Positive Thrive Assessment: Date of Thrive Assessment Date Thrive assessed 08/18/23 08/18/23 10:20 Const General: cooperative Nutritional Appearance: obese Orientation/consciousness: patient oriented x3 Resp Effort & Inspection: normal respiratory effort Auscultation: clear to auscultation bilaterally Cardio Rate: regular rate Rhythm: regular rhythm Heart sounds: S1 normal heart sound present and S2 normal heart sound present Neuro General: patient oriented x3 Extrem Other: bilat feet: + sensation with use of monofilament, + dorsalis pedis pulses, good CMS of hands and feet Psych Appearance: grossly normal Mental Status: mental status grossly normal Speech and movement: Normal speech and movement present Affect: normal affect Attitude: cooperative Thought process: Normal thought process present Thought content: Normal thought content present Insight: Good insight present (Psych) Judgement: Good judgement present (Psych) Assessment and Plan Assessment & Plan (1) Paresthesias: Code(s): R20.2 - Paresthesia of skin Plan: Labs ordered Plan The patient agreed to the use of a medical device for this encounter. Scribed for PHILLIP Medrano by [facility] medical device, on 08/18/2023 at 10:20 EST. Orders: Orders Complete Blood Count Auto Diff Today R20.2 - Paresthesia of skin Vitamin B12 and Folate Today R20.2 - Paresthesia of skin Vitamin B6 Today R20.2 - Paresthesia of skin Tick-borne Disease Molecular Today R20.2 - Paresthesia of skin Protein Electrophoresis, Serum Today R20.2 - Paresthesia of skin Comprehensive Met. Panel Today R20.2 - Paresthesia of skin TSH reflex Free T4 Today R20.2 - Paresthesia of skin Hemoglobin A1c Today R20.2 - Paresthesia of skin Magnesium Today R20.2 - Paresthesia of skin Sjogren's Antibodies Today R20.2 - Paresthesia of skin Immunofixation Pnl, Serum Today R20.2 - Paresthesia of skin Coding Level of Care Code Est Pt Level 3 (87635) Diagnoses Paresthesias R20.2 Additional Codes JUAN PABLO-7 Assessment Billing - JUAN PABLO-7 Assessment Tool: JUAN PABLO-7 Assessment 84861 ([id number])
== END 2023-08-18 10:34 | disposition home or self-care (01) ==
PROVIDERS: PCP Nurse Practitioner Family; Visit Provider Nurse Practitioner Family
DX: R20.2 Paresthesia of skin (principal)
CPT/HCPCS: 99213

== ENCOUNTER 2023-08-18 10:33 | Outpatient (REF) | payer OTHER, SELFPAY ==
[2023-08-18 13:16] LABS: MANUAL DIFF FLAG NO
[2023-08-18 13:31] LABS: Basophils Percent Auto 0.7 % (0-2); Eosinophils Absolute Auto 0.1 X10*3/uL (0.0-0.4); Eosinophils Percent Auto 3.3 % (0-4); Hematocrit 39.5 % (37.0-47.0); Hemoglobin 13.1 g/dl (12.0-16.0); Imm Gran Abs Auto 0.03 X10*3/uL (0.00-0.03); Imm Gran Pct Auto 0.7 % (0.0-0.4); Lymphocytes Absolute Auto 1.5 X10*3/uL (1.2-4.9); Lymphocytes Percent Auto 34.9 % (20-40); Mean Corpuscular HGB Conc 33.2 g/dl (31.0-35.0); Mean Corpuscular Hemoglobin 31.3 pg (27.0-33.0); Mean Corpuscular Volume 94.3 fL (80.0-98.0); Monocytes Absolute Auto 0.3 X10*3/uL (0.1-1.2); Monocytes Percent Auto 7.6 % (2-11); Neutrophils Absolute Auto 2.2 x10*3/uL (2.0-8.3); Neutrophils Percent Auto 52.8 % (45-73); Platelet Count 230 X10*3/uL (160-400); Red Blood Count 4.19 X10*6/uL (4.20-5.50); Red Cell Distribution Width 12.1 % (11.0-16.0); White Blood Count 4.2 X10*3/uL (4.8-10.8)
[2023-08-18 13:58] LABS: Estimated Average Glucose 105 mg/dL; Hemoglobin A1c % 5.3 % (<6.0)
[2023-08-18 14:16] LABS: Alanine Aminotransferase 73 U/L (0-31); Albumin Level 4.4 g/dL (3.5-5.0); Alkaline Phosphatase 75 U/L (39-117); Anion Gap 13 (12-20); Aspartate Amino Transferase 63 U/L (5-31); Bilirubin Total 1.1 mg/dL (0.0-1.0); Blood Urea Nitrogen 9 mg/dL (9-16); Calcium 9.3 mg/dL (8.4-10.2); Carbon Dioxide 26 mmol/L (22-29); Chloride 108 mmol/L (96-108); Estimated Glomerular Filt Rate > 60; Folate 10.2 ng/mL (> or = 4.0); Glucose Random 112 mg/dL (60-115); Magnesium 2.1 mg/dL (1.6-2.6); Potassium 3.8 mmol/L (3.3-5.1); Sodium 143 mmol/L (135-145); Vitamin B12 435 pg/mL (200-900)
[2023-08-18 14:20] LABS: TSH reflex Free T4 2.75 uIU/mL (0.32-4.0)
[2023-08-19 11:27] LABS: Prot Elec - Albumin 4.4 g/dL (3.8-4.8); Prot Elec - Alpha1 0.3 g/dL (0.2-0.3); Prot Elec - Alpha2 0.7 g/dL (0.5-0.9); Prot Elec - Beta 1 0.5 g/dL (0.4-0.6); Prot Elec - Beta 2 0.4 g/dL (0.2-0.5); Prot Elec - Gamma 1.3 g/dL (0.8-1.7); Prot Elec - Total Protein 7.5 g/dL (6.1-8.1)
[2023-08-19 20:34] LABS: Antibody to SS-A Antigen <1.0 NEG AI (<1.0 NEG); Antibody to SS-B Antigen <1.0 NEG AI (<1.0 NEG)
[2023-08-20 00:08] LABS: A. Phagocytphilium DNA,RT-PCR NOT DETECTED (NOT DETECTED); Babesia Microti DNA, RT-PCR NOT DETECTED (NOT DETECTED); Borrelia Miyamotoi,DNA RT-PCR NOT DETECTED (NOT DETECTED); E.Chaffeensis DNA RT-PCR NOT DETECTED (NOT DETECTED); Lyme(Borrelia ssp)DNA RT-PCR NOT DETECTED (NOT DETECTED)
[2023-08-22 11:23] LABS: Vitamin B6 8.4 ng/mL (2.1-21.7)
[2023-08-24 12:08] LABS: IgA 209 mg/dL (47-310); IgG 1492 mg/dL (600-1640); IgM 90 mg/dL (50-300)
== END 2023-08-18 10:34 | disposition home or self-care (01) ==
LOC: HO.HMGCLDS 10:33
PROVIDERS: PCP Nurse Practitioner Family; Visit Provider Nurse Practitioner Family
DX: R20.2 Paresthesia of skin (principal)
CPT/HCPCS: 36415; 80053; 82607; 82746; 82784; 83036; 83735; 84165; 84207; 84443; 85025; 86235; 86334; 87468; 87469; 87478; 87484; 87798

== ENCOUNTER 2023-08-25 09:39 | Outpatient (REF) | payer OTHER, SELFPAY ==
--- NOTE | ~2023-08-25 | US_ITS ---
EXAMINATION: US ABDOMEN COMPLETE CLINICAL INFORMATION: Abnormal levels of other serum enzymes. COMPARISON: CT abdomen and pelvis 06/07/2023. Ultrasound abdomen complete 03/04/2022. TECHNIQUE: Real-time imaging of the abdominal viscera. FINDINGS: PANCREAS: Pancreas appears mildly atrophic. ABDOMINAL AORTA: The proximal, mid, and distal segments are normal in caliber. INFERIOR VENA CAVA: Visualized portions are normal. LIVER: Normal. The liver is normal in size. The liver contour is normal. Parenchymal echogenicity is normal. No focal hepatic lesion. There is no intrahepatic biliary duct dilatation seen. GALLBLADDER: Normal. The gallbladder is physiologically distended without evidence of stones, sludge, polyps, wall thickening or pericholecystic fluid. COMMON BILE DUCT: Normal in caliber measuring 0.2 cm in diameter. RIGHT KIDNEY: Normal. No hydronephrosis. No renal calculi or focal parenchymal lesions. The kidney measures 9.5 cm in maximum dimension. LEFT KIDNEY: Normal. No hydronephrosis. No renal calculi or focal parenchymal lesions. The kidney measures 11.6 cm in maximum dimension. SPLEEN: Normal. The spleen measures 7.8 cm in maximum dimension. FREE FLUID: None. US/US abdomen complete IMPRESSION: Pancreas appears mildly atrophic. Otherwise unremarkable abdominal ultrasound.
[2023-08-25 12:03] LABS: HBS Num1 43.06 mIU/mL (0-7.99); HBc Num1 0.08 S/CO (0.00-0.79); HBsAGNum1 0.27 S/CO (0.00-0.99); Hepatitis A Antibody IgM 0.17 Index (0-0.79); Hepatitis B Core Antibody Nonreactive (Nonreactive); Hepatitis B Surface Antigen Negative (Negative); ~HepC Num1 0.19 S/CO (0.00-0.79); ~Hepatitis A Antibody IgM Nonreactive (Nonreactive); ~Hepatitis B Surface Antibody REACTIVE (Nonreactive); ~Hepatitis C Antibody Nonreactive (Nonreactive)
== END 2023-08-25 09:40 | disposition home or self-care (01) ==
LOC: HO.US 09:39
PROVIDERS: PCP Nurse Practitioner Family; Visit Provider Nurse Practitioner Family
DX: R74.8 Abnormal levels of other serum enzymes (principal)
CPT/HCPCS: 36415; 76700; 86704; 86706; 86709; 86803; 87340

== ENCOUNTER 2023-09-07 09:44 | Outpatient (REF) | payer OTHER, SELFPAY ==
--- NOTE | ~2023-09-07 | MR_ITS ---
EXAMINATION: MR BRAIN WITHOUT CONTRAST CLINICAL INFORMATION: Cerebral cysts COMPARISON: CT head 06/17/2021 TECHNIQUE: MRI of the brain was obtained using routine sequences without contrast. FINDINGS: No acute infarct. No acute intracranial hemorrhage or extra-axial fluid collection. The ventricles and sulci are normal in size and configuration without significant volume loss or hydrocephalus. At least one but possibly a few T2 FLAIR hyperintense foci within the anterior frontal subcortical white matter, nonspecific and likely of no clinical significance. No mass effect or herniation pattern. Normal intracranial arterial and dural venous sinus flow voids. 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 No significant mass effect along the superior tectum. The orbits are grossly unremarkable. Mild left sphenoid sinus and otherwise trace paranasal sinus mucosal thickening. No mastoid effusion. 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 MR/MR head/brain wo con IMPRESSION: 1. 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 No significant mass effect along the superior tectum. 2. 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
== END 2023-09-07 09:45 | disposition home or self-care (01) ==
LOC: HO.MRI 09:44
PROVIDERS: PCP Nurse Practitioner Family; Visit Provider Internal Medicine Pulmonary Disease
DX: J98.4 Other disorders of lung (principal); G93.0 Cerebral cysts
CPT/HCPCS: 70551

== ENCOUNTER 2023-10-12 10:43 | Outpatient (AMB) | payer OTHER, SELFPAY ==
[2023-10-12 10:46] VITALS: BP 138/87; PULSE 112; O2SAT 97; BMI 31.8
--- NOTE | 2023-10-12 10:46 | MHC.OFFVIS ---
Intake Vital Signs 10/12/23 10:46 Height 5 ft Weight 163 lb BMI 31.8 BP 138/87 Blood Pressure Location Lt brachial Position Sitting Pulse 112 H Pulse Source Doppler Pulse Oximetry (%) 97 Oxygen Delivery Method Room Air Intake Visit Reasons: asthma Allergies lactose [LACTOSE] Allergy (Unknown, Verified 10/12/23 10:51) DIARRHEA milk [MILK] Adverse Reaction (Unknown, Verified 10/12/23 10:51) DIARRHEA HPI asthma HPI Details 48-year-old lady previously seen for suspicion for SINGLETON, referred for lung biopsy and evaluation at [facility].? Patient states that she has had an biopsy negative for SINGLETON and until recently she was following up with [facility] pulmonary clinic for unclear etiology of underlying pulmonary process resulting in cystic lung disease.? However, recently her physician in [facility] has resigned and she does not have further subspecialty follow up. She continues to complain of intermittent sharp pains in her chest associated with feeling of passing out . She has completed her sleep study that showed no underlying sleep apnea, however significant restless leg symptoms. Her follow-up CT chest shows stable findings as compared to 2020. Her brain MRI shows pineal gland cyst that appears to be decreased from the prior CT in 2020. Patient was started on ropinirole with some improvement in her restless leg symptoms. [facility] Medical History (Updated 08/25/23 @ 18:42 by PHILLIP Tellez) Atrophic pancreas Elevated bilirubin Cystic-bullous disease of lung Osteoarthritis Lumbar spondylosis Cervical neck pain with evidence of disc disease 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 Paternal Grandfather No problems noted. Paternal Grandmother No problems noted. Brother No problems noted. Sister No problems noted. Social History Housing: House Alcohol intake: never Patient Tobacco Use Status: Former Tobacco user Tobacco use type: Cigarette e-Cigarette/Vaping Use: Never Used Second Hand Smoke Exposure: No service: No Current occupational status: disabled (temp disabled ) Current occupational exposures/hazards: No Cognitive needs: No Hearing needs: No Vision needs: Yes Review of Systems Const Denies daytime sleepiness, Denies excessive sweating, Denies fatigue, Denies fever(s), Denies lethargy, Denies malaise, Denies night sweats, Denies snoring and Denies weight loss Eyes Denies blurry vision and Denies itchy eyes ENT Denies nasal congestion, Denies post nasal drip, Denies sinus pain, Denies sinus pressure and Denies other ( Thrush) Card Denies chest pain, Denies pedal edema, Denies dyspnea, Reports dyspnea on exertion, Denies orthopnea and Denies paroxysmal nocturnal dyspnea Resp Denies cough, Denies hemoptysis, Denies excessive phlegm production, Denies dyspnea, Reports dyspnea on exertion, Denies snoring and Denies wheezing GI Denies abdominal pain and Denies heartburn Musc Denies myalgias, Denies arthralgias and Denies joint swelling Skin/Breast Denies rash Neuro Denies memory loss and Denies seizure-like activity Psych Denies abnormal sleep pattern, Denies anxiety and Denies memory loss Endo Denies excessive sweating, Denies fatigue and Denies heat intolerance James/Lymph Denies easy bruising Aller/Immun Denies itchy eyes, Denies seasonal rhinorrhea and Denies wheezing Physical Exam Vital Signs: Last Vital Signs Pulse 112 H 10/12/23 10:46 BP 138/87 10/12/23 10:46 Pulse Ox 97 10/12/23 10:46 Oxygen Delivery Method Room Air 10/12/23 10:46 BMI result Body Mass Index 31.8 Const General: no acute distress and alert Nutritional Appearance: not obese Orientation/consciousness: Other orientation findings ( oriented) HEENT Head: Yes atraumatic Eyes General: appearance normal, both eyes and all related structures Sclerae: sclerae normal EOM: EOMs intact bilaterally Neck Neck: Yes supple Lymphatic: no lymphadenopathy noted Resp Effort & Inspection: normal respiratory effort and no use of accessory muscles Auscultation: clear to auscultation bilaterally Cardio Rate: regular rate Rhythm: regular rhythm Heart sounds: no gallops, no murmurs and no rubs Skin General skin exam: other ( warm) Extrem General: No clubbing, No cyanosis and No edema Assessment & Plan Assessment & Plan (1) Cystic-bullous disease of lung: Code(s): J98.4 - Other disorders of lung Plan: Unclear etiology and so far unrevealing workup. Will refer to [facility] for further evaluation. (2) Restless leg syndrome: Code(s): G25.81 - Restless legs syndrome Plan: Improved on low-dose ropinirole, will increase ropinirole. Orders: Referrals Pulmonology Referral J98.4 - Other disorders of lung Coding Level of Care Code Est Pt Level 4 (81802) Diagnoses Cystic-bullous disease of lung J98.4 Restless leg syndrome G25.81
== END 2023-10-12 11:12 | disposition home or self-care (01) ==
PROVIDERS: PCP Nurse Practitioner Family; Visit Provider Internal Medicine Pulmonary Disease
DX: J98.4 Other disorders of lung (principal); G25.81 Restless legs syndrome
CPT/HCPCS: 99214

== ENCOUNTER → 2023-10-12 10:43 | Outpatient (BNVA) | payer OTHER, SELFPAY | PROVIDERS: PCP Nurse Practitioner Family; Visit Provider Internal Medicine Pulmonary Disease | DX: J45.909 Unspecified asthma, uncomplicated (principal); R07.9 Chest pain, unspecified; J98.4 Other disorders of lung; G25.81 Restless legs syndrome | CPT/HCPCS: 99212 ==

== ENCOUNTER 2023-10-18 13:07 | Outpatient (AMB) | payer OTHER, SELFPAY ==
[2023-10-18 13:27] VITALS: BP 118/76; BMI 31.4
--- NOTE | 2023-10-18 13:27 | MHC.OFFVIS ---
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 No complaints. 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 Paternal Grandfather No problems noted. Paternal Grandmother No problems noted. Brother No problems noted. Sister No problems noted. Social History Housing: House Alcohol intake: never Patient Tobacco Use Status: Former Tobacco user Tobacco use type: Cigarette e-Cigarette/Vaping Use: Never Used Second Hand Smoke Exposure: No service: No Current occupational status: disabled (temp disabled ) Current occupational exposures/hazards: No Cognitive needs: No Hearing needs: No Vision needs: Yes Female Reproductive History Menstrual Duration of menses: 3-5 days Date of last menstrual period: 10/16/23 control method: permanent sterilization Total pregnancies: 4 Full term: 3 Number of Living Children: 3 Date of last pap smear: 07/17/15 History of abnormal pap smear: No Date of Mammogram: 05/17/23 History of abnormal mammogram: No Review of Systems Const All systems reviewed & are unremarkable except as noted in HPI and below Card Reports as per HPI Resp Reports as per HPI GI Reports as per HPI and Reports no additional complaints Reports as per HPI Physical Exam Vital Signs: Last Vital Signs BP 118/76 10/18/23 13:27 BMI result Body Mass Index 31.4 Const General: cooperative, healthy appearing and comfortable Chest Chest palpation & inspection: normal inspection of the chest and normal palpation of entire chest wall Breast/axilla inspection: normal inspection of the breasts and normal inspection of the axillae Breast/axilla palpation: normal palpation of the breasts, normal palpation of the axillae and no axillary lymphadenopathy Resp Effort & Inspection: normal respiratory effort Auscultation: clear to auscultation bilaterally Percussion: percussion normal Cardio Palpation: normal PMI Rate: regular rate Rhythm: regular rhythm Heart sounds: no murmurs and no rubs Peripheral pulses: Peripheral pulses 2+ throughout GI Inspection: Yes normal to inspection Palpation (GI): Soft to palpation, nontender, no guarding, not rigid and No hepatosplenomegaly present Percussion: Yes normal to percussion Auscultation: normal bowel sounds Rectal Exam - Female: deferred General: Yes bladder normal to palpation External Female Exam: No lesion Speculum Exam - Vagina: normal appearance of the vagina, normal palpation, normal vaginal discharge and not erythematous Speculum Exam - Cervix: normal appearance of the cervix and normal palpation Bimanual exam- vagina & uterus: normal bimanual exam, normal palpation, bladder normal to palpation, consistency normal, normal palpation and enlarged Bimanual Exam- Adnexa, other: normal adnexae, no masses and no tenderness Assessment & Plan Assessment & Plan (1) Well woman exam: Code(s): Z01.419 - Encounter for gynecological examination (general) (routine) without abnormal findings Plan: Cotesting done. Instructions given the patient to schedule next screening Mammogram in 05/24. Counseled the patient about the recommended dietary allowance of 1000 mg of Calcium & 600 IU of vitamin D. Will refer the patient to GI for screening colonoscopy The patient was instructed to perform monthly self-breast exams and to schedule an annual exam in a year; All questions answered and the patient verbalized understanding. Instructed the patient to schedule annual exam in a year (2) Enlarged uterus: Code(s): N85.2 - Hypertrophy of uterus Plan: Discussed with the patient the finding on her pelvic exam, enlarged uterus. Ultrasound ordered. Instructions given the patient to schedule a follow-up ultrasound appointment within 2 weeks. All questions answered, the patient verbalized understanding Orders: Referrals Gastroenterology Referral Z12.11 - Encounter for screening for malignant neoplasm of colon Coding Level of Care Code New Pt Prev Care 40-64y(14063) Diagnoses Well woman exam Z01.419 Enlarged uterus N85.2
== END 2023-10-18 14:04 | disposition home or self-care (01) ==
PROVIDERS: PCP Nurse Practitioner Family; Visit Provider Obstetrics & Gynecology
DX: Z01.419 Encounter for gynecological examination (general) (routine) without abnormal findings (principal); N85.2 Hypertrophy of uterus
CPT/HCPCS: 99386

== ENCOUNTER 2023-10-18 13:07 | Outpatient (REF) | payer OTHER, SELFPAY ==
[2023-10-25 12:38] LABS: HPV mRNA E6/E7 rflx Not Detected (Not Detected)
== END 2023-10-18 13:08 | disposition home or self-care (01) ==
LOC: HO.LNP 13:07
PROVIDERS: PCP Nurse Practitioner Family; Visit Provider Obstetrics & Gynecology
DX: Z01.419 Encounter for gynecological examination (general) (routine) without abnormal findings (principal); N85.2 Hypertrophy of uterus
CPT/HCPCS: 87624; 88142; 99386

== ENCOUNTER 2023-10-25 13:57 | Outpatient (REF) | payer OTHER, SELFPAY ==
--- NOTE | ~2023-10-25 | US_ITS ---
EXAMINATION: US PELVIS CLINICAL INFORMATION: Hypertrophy of uterus LMP: One week ago COMPARISON: CT scan abdomen and pelvis 06/07/2023, pelvic ultrasound 07/04/2019 TECHNIQUE: Ultrasound of the pelvis is performed using both transabdominal and transvaginal transducers along with Doppler. Transvaginal imaging is performed due to inadequate visualization transabdominally. FINDINGS: Uterus: The uterus is anteverted and measures 10.3 x 4.3 x 6.1 cm. The endometrial thickness is 1.3 cm. The uterus is smooth in contour and has normal myometrial echogenicity. No visible fibroid. Adnexa: Both ovaries are visualized. There is normal color flow to the adnexa. There is no ovarian torsion. There is no pelvic ascites or fluid collection. The ovaries are normal in appearance. Right ovary measures 3.8 x 3.6 x 3.3 cm. Volume 16.4 mL. 2.9 cm follicle, normal finding is seen. No follow-up imaging recommended. Left ovary measures 2.6 x 1.4 x 2.0 cm. Volume 3.8 mL. US/US pelvic and transvaginal IMPRESSION: 1. Enlarged uterus without a focal fibroid. 2. Normal ovaries.
== END 2023-10-25 13:58 | disposition home or self-care (01) ==
LOC: HO.US 13:57
PROVIDERS: PCP Nurse Practitioner Family; Visit Provider Obstetrics & Gynecology
DX: N85.2 Hypertrophy of uterus (principal)
CPT/HCPCS: 76830; 76856

== ENCOUNTER 2023-11-28 13:22 | Outpatient (AMB) | payer OTHER, SELFPAY ==
--- NOTE | 2023-11-28 13:26 | A.OFFVIS_ITS ---
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 Last visit, on pelvic exam the uterus was felt to be enlarged. The patient is doing well complaining of perirectal itching of few days' duration, no lesions according to the patient, no pain, hemorrhoids or any other findings. Pelvic ultrasound done recently showed the following: Uterus: The uterus is anteverted and measures 10.3 x 4.3 x 6.1 cm. The endometrial thickness is 1.3 cm. The uterus is smooth in contour and has normal myometrial echogenicity. No visible fibroid. Adnexa: Both ovaries are visualized. There is normal color flow to the adnexa. There is no ovarian torsion. There is no pelvic ascites or fluid collection. The ovaries are normal in appearance. Right ovary measures 3.8 x 3.6 x 3.3 cm. Volume 16.4 mL. 2.9 cm follicle, normal finding is seen. 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 Paternal Grandfather No problems noted. Paternal Grandmother No problems noted. Brother No problems noted. Sister No problems noted. Social History Housing: House Alcohol intake: never Patient Tobacco Use Status: Former Tobacco user Tobacco use type: Cigarette e-Cigarette/Vaping Use: Never Used Second Hand Smoke Exposure: No service: No Current occupational status: disabled (temp disabled ) Current occupational exposures/hazards: No Cognitive needs: No Hearing needs: No Vision needs: Yes Review of Systems Const All systems reviewed & are unremarkable except as noted in HPI and below Reports as per HPI and Reports no additional complaints GI Reports no additional complaints Reports no additional complaints Telehealth Telehealth Telehealth Platform: Telephone Location of provider rendering services: practice address Location of patient: address on file Patient Identification confirmed using: Name, : Yes Telehealth method: voice only Patient verbally consented to treatment: Yes Patient verbally consented to billing insurance company: Yes Patient informed of any privacy concerns related to visit: Yes Assessment & Plan Assessment & Plan (1) Enlarged uterus: Code(s): N85.2 - Hypertrophy of uterus Category: Medical Plan: Discussed with the patient the finding on ultrasound, mildly enlarged uterus with no evidence of any masses or myomas and normal adnexa bilaterally, with simple right 2.9 cm ovarian follicle with no need for any further follow-up. The patient was reassured. All questions answered, the patient verbalized understanding. I spent a total of 20 minutes reviewing the chart, talking to the patient via phone and documenting in the medical record. (2) Itching: Comment: Perirectal area Code(s): L29.9 - Pruritus, unspecified Category: Medical Plan: Recommended the patient to use [id number] 1% hydrocortisone twice a day for 5 days, if symptoms get worse to discontinue it immediately, if symptoms do not improve within few days to call for an evaluation appointment. All questions answered, the patient verbalized understanding Coding Level of Care Code Tele Est Pt Level 1 (98497) Diagnoses Enlarged uterus N85.2 Itching L29.9
== END 2023-11-28 15:34 | disposition home or self-care (01) ==
LOC: HO.HWS 13:23
PROVIDERS: PCP Nurse Practitioner Family; Visit Provider Obstetrics & Gynecology
DX: N85.2 Hypertrophy of uterus (principal); L29.9 Pruritus, unspecified
CPT/HCPCS: 99211

== ENCOUNTER → 2023-11-28 13:22 | Outpatient (BNVA) | payer OTHER, SELFPAY | PROVIDERS: PCP Nurse Practitioner Family; Visit Provider Obstetrics & Gynecology ==

== ENCOUNTER 2024-01-24 10:46 | Outpatient (AMB) | payer OTHER, SELFPAY ==
[2024-01-24 10:51] VITALS: BP 118/72; PULSE 111; O2SAT 97; BMI 29.1
--- NOTE | 2024-01-24 10:51 | A.OFFVIS_ITS ---
Vital Signs 01/24/24 10:51 Height 5 ft Weight 148 lb 12.992 oz BMI 29.1 BP 118/72 Blood Pressure Location Lt brachial Position Sitting Pulse 111 H Pulse Source Doppler Pulse Oximetry (%) 97 Intake Visit Reasons: Asthma Allergies lactose [LACTOSE] Allergy (Unknown, Verified 11/28/23 13:26) DIARRHEA milk [MILK] Adverse Reaction (Unknown, Verified 11/28/23 13:26) DIARRHEA HPI HPI Asthma: Details: 48-year-old lady previously seen for suspicion for SINGLETON, referred for lung biopsy and evaluation at [facility].? Patient states that she has had an biopsy negative for SINGLETON and until recently she was following up with [facility] pulmonary clinic for unclear etiology of underlying pulmonary process resulting in cystic lung disease.? However, recently her physician in [facility] has resigned and she does not have further subspecialty follow up. She continues to complain of intermittent sharp pains in her chest associated with feeling of passing out . She has completed her sleep study that showed no underlying sleep apnea, however significant restless leg symptoms. Her follow- up CT chest shows stable findings as compared to 2020. Her brain MRI shows pineal gland cyst that appears to be decreased from the prior CT in 2020. At the last office visit her ropinirole was increased 0.5 with improvement, but not complete resolution her restless leg symptoms. 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 Paternal Grandfather No problems noted. Paternal Grandmother No problems noted. Brother No problems noted. Sister No problems noted. Social History Housing: House Alcohol intake: never Patient Tobacco Use Status: Former Tobacco user Tobacco use type: Cigarette e-Cigarette/Vaping Use: Never Used Second Hand Smoke Exposure: No service: No Current occupational status: disabled (temp disabled ) Current occupational exposures/hazards: No Cognitive needs: No Hearing needs: No Vision needs: Yes Review of Systems Const Denies daytime sleepiness, Denies excessive sweating, Denies fatigue, Denies fever(s), Denies lethargy, Denies malaise, Denies night sweats, Denies snoring and Denies weight loss Eyes Denies blurry vision and Denies itchy eyes ENT Denies nasal congestion, Denies post nasal drip, Denies sinus pain, Denies sinus pressure and Denies other ( Thrush) Card Denies chest pain, Denies pedal edema, Denies dyspnea, Denies orthopnea and Denies paroxysmal nocturnal dyspnea Resp Denies cough, Denies hemoptysis, Denies excessive phlegm production, Denies dyspnea, Denies snoring and Denies wheezing GI Denies abdominal pain and Denies heartburn Musc Denies myalgias, Denies arthralgias and Denies joint swelling Skin/Breast Denies rash Neuro Denies memory loss and Denies seizure-like activity Psych Denies abnormal sleep pattern, Denies anxiety and Denies memory loss Endo Denies excessive sweating, Denies fatigue and Denies heat intolerance James/Lymph Denies easy bruising Aller/Immun Denies itchy eyes, Denies seasonal rhinorrhea and Denies wheezing Physical Exam Vital Signs: Last Vital Signs Pulse 111 H 01/24/24 10:51 BP 118/72 01/24/24 10:51 Pulse Ox 97 01/24/24 10:51 BMI result Body Mass Index 29.1 Const General: no acute distress and alert Nutritional Appearance: not obese Orientation/consciousness: Other orientation findings ( oriented) HEENT Head: Yes atraumatic Eyes General: appearance normal, both eyes and all related structures Sclerae: sclerae normal EOM: EOMs intact bilaterally Neck Neck: Yes supple Lymphatic: no lymphadenopathy noted Resp Effort & Inspection: normal respiratory effort and no use of accessory muscles Auscultation: clear to auscultation bilaterally Cardio Rate: regular rate Rhythm: regular rhythm Heart sounds: no gallops, no murmurs and no rubs Skin General skin exam: other ( warm) Extrem General: No clubbing, No cyanosis and No edema Assessment & Plan Assessment & Plan (1) Cystic-bullous disease of lung: Code(s): J98.4 - Other disorders of lung Category: Medical Plan: So far with an essentially negative workup including follow-up in [place]. Patient is awaiting evaluation at [facility]. Continue to monitor clinically. (2) Restless leg syndrome: Code(s): G25.81 - Restless legs syndrome Category: Medical Plan: With improvement in symptoms after increasing ropinirole to 0.5, but not complete resolution, will increase ropinirole to 0.75. Medications: Changed From ropinirole 0.25 mg PO BEDTIME 90 tabs 2RF To ropinirole 0.75 mg (3 x 0.25 mg) PO BEDTIME 30 days 90 tabs 4RF Coding Level of Care Code Est Pt Level 4 (67289) Complex EM visit Add On G2211 Diagnoses Cystic-bullous disease of lung J98.4 Restless leg syndrome G25.81
== END 2024-01-24 11:09 | disposition home or self-care (01) ==
PROVIDERS: PCP Nurse Practitioner Family; Visit Provider Internal Medicine Pulmonary Disease
DX: J98.4 Other disorders of lung (principal); G25.81 Restless legs syndrome
CPT/HCPCS: 99214; G2211

== ENCOUNTER → 2024-01-24 10:46 | Outpatient (BNVA) | payer OTHER, SELFPAY | PROVIDERS: PCP Nurse Practitioner Family; Visit Provider Internal Medicine Pulmonary Disease | DX: J84.9 Interstitial pulmonary disease, unspecified (principal); G25.81 Restless legs syndrome | CPT/HCPCS: 99212 ==

== ENCOUNTER 2024-03-26 16:02 | Outpatient (AMB) | payer OTHER, SELFPAY ==
--- NOTE | 2024-03-26 16:03 | MHC.OFFWIV ---
Intake Vital Signs 03/26/24 16:04 Height 5 ft Weight 162 lb BMI 31.6 BP 118/80 Blood Pressure Location Rt brachial Position Sitting Pulse 68 Pulse Source Pulse Oximeter Temp 98.4 F Temp Source Oral Pulse Oximetry (%) 97 Oxygen Delivery Method Room Air Intake Visit Reasons: EP Rash on bottom Intake Note: pt c/o rash on buttocks, started a couple weeks ago. Got much worse over past 2 days Patient Tobacco Use Status: Former Tobacco user Allergies lactose [LACTOSE] Allergy (Unknown, Verified 03/26/24 16:03) DIARRHEA milk [MILK] Adverse Reaction (Unknown, Verified 03/26/24 16:03) DIARRHEA Do you need a note to return to daycare/school/sports/work: No HPI EP Rash on bottom HPI Details This note is constructed using voice recognition software. While every effort has been made to ensure accuracy, papier mache molder errors may have been included. 49 y.o. female presents with several months of rash to coccyx. She has had similar to her breasts in the past. She has tried hydrocortisone cream in several forms and clotrimazole without relief. She denies new lotions, soaps, detergents. She has no discharge, fever, or other symptoms. 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 Paternal Grandfather No problems noted. Paternal Grandmother No problems noted. Brother No problems noted. Sister No problems noted. Social History Housing: House Alcohol intake: never Patient Tobacco Use Status: Former Tobacco user Tobacco use type: Cigarette e-Cigarette/Vaping Use: Never Used Second Hand Smoke Exposure: No service: No Current occupational status: disabled (temp disabled ) Current occupational exposures/hazards: No Cognitive needs: No Hearing needs: No Vision needs: Yes Review of Systems Const All systems reviewed & are unremarkable except as noted in HPI and below Physical Exam Vital Signs: Last Vital Signs Temp 98.4 F 03/26/24 16:04 Pulse 68 03/26/24 16:04 BP 118/80 03/26/24 16:04 Pulse Ox 97 03/26/24 16:04 Oxygen Delivery Method Room Air 03/26/24 16:04 BMI result Body Mass Index 31.6 Const General: cooperative, healthy appearing, comfortable, no acute distress and well developed Orientation/consciousness: patient oriented x3 Limitations: no limitations Eyes General: appearance normal, both eyes and all related structures Resp Effort & Inspection: normal respiratory effort and able to speak in complete sentences Skin Other: Moist fungal rash to coccyx fold. No signs of secondary bacterial infection. Neuro General: patient oriented x3 Assessment & Plan Assessment & Plan (1) Fungal dermatitis: Code(s): B36.9 - Superficial mycosis, unspecified Plan: Nystatin powder ordered for treatment. advised to keep the area clean and dry. Once resolved, consider powder to keep the area dry and prevent recurrence. Plan See above for full details and plan. Medications: New nystatin 1 appl topical BID 30 grams 0RF Coding Level of Care Code Est Pt Level 3 (63305) Diagnoses Fungal dermatitis B36.9
[2024-03-26 16:04] VITALS: BP 118/80; PULSE 68; TEMP 36.9; O2SAT 97; BMI 31.6
== END 2024-03-26 16:25 | disposition home or self-care (01) ==
PROVIDERS: PCP Nurse Practitioner Family; Visit Provider Registered Nurse
DX: B36.9 Superficial mycosis, unspecified (principal)
CPT/HCPCS: 99213

== ENCOUNTER 2024-05-16 11:00 | Outpatient (REF) | payer OTHER, SELFPAY ==
[2024-05-16 13:13] LABS: MANUAL DIFF FLAG NO
[2024-05-16 13:35] LABS: Basophils Percent Auto 0.8 % (0-2); Eosinophils Absolute Auto 0.1 X10*3/uL (0.0-0.4); Eosinophils Percent Auto 2.5 % (0-4); Hematocrit 38.3 % (37.0-47.0); Hemoglobin 12.9 g/dl (12.0-16.0); Imm Gran Abs Auto 0.02 X10*3/uL (0.00-0.03); Imm Gran Pct Auto 0.4 % (0.0-0.4); Lymphocytes Absolute Auto 1.8 X10*3/uL (1.2-4.9); Lymphocytes Percent Auto 37.4 % (20-40); Mean Corpuscular HGB Conc 33.7 g/dl (31.0-35.0); Mean Corpuscular Hemoglobin 31.5 pg (27.0-33.0); Mean Corpuscular Volume 93.4 fL (80.0-98.0); Mean Platelet Volume 11.1 fL (9.4-12.3); Monocytes Absolute Auto 0.3 X10*3/uL (0.1-1.2); Monocytes Percent Auto 6.1 % (2-11); Neutrophils Absolute Auto 2.5 x10*3/uL (2.0-8.3); Neutrophils Percent Auto 52.8 % (45-73); Platelet Count 243 X10*3/uL (160-400); Red Cell Distribution Width 11.8 % (11.0-16.0); White Blood Count 4.8 X10*3/uL (4.8-10.8)
[2024-05-16 13:52] LABS: Appearance Urine Clear; Color Urine Yellow; Glucose Urine UA Negative (Negative); Leukocyte Esterase Urine Negative (Negative); Nitrite Urine Negative (Negative); Urine Blood Negative (Negative); Urine Ketones Negative (Negative); Urine Protein Negative (Neg-Trace)
[2024-05-16 14:23] LABS: Alanine Aminotransferase 22 U/L (0-31); Albumin Level 4.6 g/dL (3.5-5.0); Alkaline Phosphatase 75 U/L (39-117); Anion Gap 11 (12-20); Aspartate Amino Transferase 21 U/L (5-31); Bilirubin Total 1.1 mg/dL (0.0-1.0); Blood Urea Nitrogen 13 mg/dL (9-16); Calcium 9.3 mg/dL (8.4-10.2); Carbon Dioxide 25 mmol/L (22-29); Chloride 108 mmol/L (96-108); Cholesterol 156 mg/dL (<200); Estimated Glomerular Filt Rate > 60; Glucose Fasting 102 mg/dL (60-99); HDL Cholesterol 40 mg/dL (>40); LDL Cholesterol Calculated 93 mg/dL (<100); Potassium 4.3 mmol/L (3.3-5.1); Sodium 140 mmol/L (135-145); Total Protein 7.8 g/dL (6.5-8.0); Triglycerides 119 mg/dL (<150)
[2024-05-16 14:24] LABS: TSH reflex Free T4 2.93 uIU/mL (0.32-4.0); Vitamin D 25-OH Total 35.1 ng/mL (>30)
== END 2024-05-16 11:01 | disposition home or self-care (01) ==
LOC: HO.HMGCLDS 11:00
PROVIDERS: PCP Nurse Practitioner Family; Visit Provider Nurse Practitioner Family
DX: Z00.01 Encounter for general adult medical examination with abnormal findings (principal); Z23 Encounter for immunization; K86.89 Other specified diseases of pancreas; J98.4 Other disorders of lung; E55.9 Vitamin D deficiency, unspecified
CPT/HCPCS: 36415; 80053; 80061; 81003; 82306; 84443; 85025; 90471; 90656; 96127; 99396

== ENCOUNTER 2024-05-16 11:22 | Outpatient (AMB) | payer OTHER, SELFPAY ==
--- NOTE | 2024-05-16 11:24 | A.OFFPC_ITS ---
Vital Signs 05/16/24 11:25 Height 5 ft Weight 160 lb BMI 31.2 BP 118/76 Blood Pressure Location Rt brachial Position Sitting Pulse 76 Pulse Source Pulse Oximeter Pulse Oximetry (%) 98 Oxygen Delivery Method Room Air Intake Visit Reasons: PE -req flu Intake Note: pt is here for for annual exam, flu given to patient today Public Employment Mediator Required: No Accompanied by: Self / Same As Patient Allergies lactose [LACTOSE] Allergy (Unknown, Verified 05/16/24 11:48) DIARRHEA milk [MILK] Adverse Reaction (Unknown, Verified 05/16/24 11:48) DIARRHEA Medication List - Last Reconciled 05/16/24 by STUART Tellez-MIKAELA acetaminophen (Tylenol Extra Strength) 500 mg PO Q6H PRN 30 days atorvastatin 20 mg PO DAILY 90 days clonazepam 1 mg PO BID PRN escitalopram oxalate 20 mg PO DAILY gabapentin 400 mg PO TID 30 days lorazepam 1 mg PO Q12H PRN 30 days mirtazapine 15 mg PO BEDTIME nystatin 1 appl topical BID quetiapine 25 mg PO BEDTIME quetiapine 100 mg PO BEDTIME ropinirole 0.75 mg (3 x 0.25 mg) PO BEDTIME spironolactone 100 mg PO 2 tabs in morning, 1 tab at night; sumatriptan succinate 50 mg PO ONCE PRN 10 days Tobacco use date assessed: 08/18/23 Dental Screening Dental Screen Date: 08/18/23 HPI PE -req flu HPI Details Pt is here for a PE. Will order labs. Due for colon screen, will refer to GI. Due for mammo, will order. Has a [employer] employee. Pt is following up with pulmonology (2 different providers). Pt reports palpitations. Will do an EKG in office. Pt describes feeling like her lung cysts pop , touching upon palpitations as well. EKG in office today. Pt encouraged to follow up with pulmonary provider in [facility]. 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 Paternal Grandfather No problems noted. Paternal Grandmother No problems noted. Brother No problems noted. Sister No problems noted. Social History Housing: House Alcohol intake: never Patient Tobacco Use Status: Former Tobacco user Tobacco use type: Cigarette e-Cigarette/Vaping Use: Never Used Second Hand Smoke Exposure: No service: No Current occupational status: disabled (temp disabled ) Current occupational exposures/hazards: No Cognitive needs: No Hearing needs: No Vision needs: Yes Questionnaire Thrive Questionnaire Date Thrive assessed: 05/16/24 I am a: Patient What is your living situation today?: I have a steady place to live Within the past 12 months, did the food you bought not last and you didn't have the money to get more?: I choose not to answer this question Within the past 12 months, did you worry whether your food would run out before you got money to buy more?: I choose not to answer this question Do you have trouble paying for medicines?: No Do you have trouble getting transportation to medical appointments?: I choose not to answer this question Do you have trouble paying your heating and electricity bill?: I choose not to answer this question Do you have trouble taking care of your child, family member or friend?: I choose not to answer this question Do you have trouble with day-to-day activities such as bathing, preparing meals, shopping, managing finances, etc.?: I choose not to answer this question Are you currently unemployed and looking for a job?: I choose not to answer this question Are you interested in more education?: I choose not to answer this question Please select the resources that you would like help with: None Currently or been in a relationship where the following occur: I choose not to answer THRIVE Score: 0 AUDIT C Alcohol Use Questionnaire (AUDIT-C) 1. How often do you have a drink containing alcohol?: Never 3. How often do you have six or more drinks on one occasion?: Never Total Score: 0 Score Reviewed/Action Taken: Yes JUAN PABLO-7 AMB Questionnaire JUAN PABLO-7 Date JUAN PABLO - 7 assessed: 05/16/24 Feeling nervous, anxious, or on edge: 0 = Not at all Not being able to stop or control worryin = Not at all Worrying too much about different things: 0 = Not at all Trouble relaxin = Nearly every day Being so restless that it is hard to sit still: 3 = Nearly every day Becoming easily annoyed or irritable: 0 = Not at all Feeling afraid as if something awful might happen: 0 = Not at all Total JUAN PABLO-7 score (0-4 normal; 5-9 mild; 10-14 moderate; 15-21 severe): 6 Source: Developed by Drs. Benigno Chan, Stephany Howell, Jeffry Cormier and colleagues, with an educational jaison from [employer]. JUAN PABLO-7 Assessment Billing JUAN PABLO-7 Assessment Tool: JUAN PABLO-7 Assessment 12230 Review of Systems Const Denies chills and Denies fever(s) Eyes Denies blurry vision ENT Denies vertigo, Denies dizziness and Denies sore throat Card Denies chest pain at rest, Denies chest pain with activity, Denies diaphoresis, Denies dyspnea and Denies dyspnea on exertion Resp Denies cough, Denies dyspnea, Denies dyspnea on exertion and Denies wheezing GI Denies abdominal pain, Denies melena, Denies hematochezia, Denies constipation, Denies diarrhea and Denies loose stools Denies hematuria Musc Denies numbness and Denies tingling Skin/Breast Denies lesions Neuro Denies vertigo, Denies dizziness, Denies numbness and Denies tingling Psych Denies anxiety, Denies depression, Denies homicidal ideation, Denies suicidal ideation and Denies other (substance abuse) Aller/Immun Denies wheezing Physical exam (Primary Care) Vital Signs: Last Vital Signs Pulse 76 05/16/24 11:25 BP 118/76 05/16/24 11:25 Pulse Ox 98 05/16/24 11:25 Oxygen Delivery Method Room Air 05/16/24 11:25 BMI result Body Mass Index 31.2 Tobacco/Smoking Status: Tobacco use Status Tobacco use date assessed 08/18/23 05/16/24 11:27 Patient Tobacco Use Status Former Tobacco user 05/16/24 11:27 Tobacco use type Cigarette 05/16/24 11:27 e-Cigarette/Vaping Use Never Used 05/16/24 11:27 Thrive Assessment: Date of Thrive Assessment Date Thrive assessed 05/16/24 05/16/24 11:27 Currently or been in a relationship where the following occur: I choose not to answer Const General: cooperative Nutritional Appearance: well nourished Orientation/consciousness: patient oriented x3 HENMT Head: Yes normal to inspection, Yes normocephalic and Yes atraumatic Ears: TM's normal bilaterally Eyes General: appearance normal, both eyes and all related structures Alignment and Position: alignment normal and position normal Neck Neck: Yes normal visual inspection, Yes no lymphadenopathy and Yes supple Resp Effort & Inspection: normal respiratory effort Auscultation: clear to auscultation bilaterally Cardio Rate: regular rate Rhythm: regular rhythm Heart sounds: S1 normal heart sound present, S2 normal heart sound present and no murmurs GI Palpation (GI): Soft to palpation and nontender Auscultation: normal bowel sounds Skin Rashes: no rashes Neuro General: patient oriented x3, moves all extremities, no focal motor deficits and deep tendon reflexes 2+ bilaterally Romberg Test: Negative Psych Appearance: grossly normal Mental Status: mental status grossly normal Speech and movement: Normal speech and movement present Affect: normal affect Attitude: cooperative Thought process: Normal thought process present Thought content: Normal thought content present Insight: Good insight present (Psych) Judgement: Good judgement present (Psych) Office Procedures Flu Questionnaire Does the patient have a severe egg allergy?: No Does the patient have severe life threatening allergies?: No Does the patient have a fever or illness today?: No Has the patient ever had Guillain-[place] Syndrome?: No Has the patient ever had any past reaction to a flu shot?: No Immunizations Fluarix Triv [id number] (PF) 45 mcg (15 mcg x 3)/0.5 mL IM syringe Performing Provider: PHILLIP Tellez Performing Location: [facility] Administered by: Walter Hoff CMA on 05/16/24 11:35 Dose Route Admin Location Dispensed Lot Number Expiration Date NDC Associate Merchant 0.5 mL IM Left Deltoid 0.5 mL [id number] 01/28/25 [id number] [employer] VIS Given Date VIS Provided VIS Publication Date 05/16/24 Single Vaccine 21 Eligibility Eligibility Date Funding Source Not [facility] Eligible 05/16/24 Private Coding Level of Care Code Est Pt Prev Care 40-64y(96223) Diagnoses Screening for colon cancer Z12.11 Atrophic pancreas K86.89 Cystic-bullous disease of lung J98.4 Encounter for routine adult physical exam with abnormal findings Z00.01 Additional Codes JUAN PABLO-7 Assessment Billing - JUAN PABLO-7 Assessment Tool: JUAN PABLO-7 Assessment 74715 ([id number]) Assessment & Plan Assessment & Plan (1) Screening for colon cancer: Code(s): Z12.11 - Encounter for screening for malignant neoplasm of colon Category: Medical Plan: Referred to GI (2) Atrophic pancreas: Code(s): K86.89 - Other specified diseases of pancreas Category: Medical Plan: CT ordered (3) Cystic-bullous disease of lung: Code(s): J98.4 - Other disorders of lung Category: Medical Plan: follow up with pulmonary (x 2 different providers) (4) Encounter for routine adult physical exam with abnormal findings: Code(s): Z00.01 - Encounter for general adult medical examination with abnormal findings Category: Medical Plan: labs ordered Plan The patient agreed to the use of a medical leader for this encounter. Scribed for PHILLIP Medrano by oanh Mendoza scribe, on 05/16/2024 at 11:50 EST. Orders: Orders Influenza [id number] Immunization Today Z23 - Encounter for immunization CT abdomen wo IV con Today K86.89 - Other specified diseases of pancreas MM screening mammo BI Today Z12.31 - Encounter for screening mammogram for malignant neoplasm of breast Referrals Gastroenterology Referral Z12.11 - Encounter for screening for malignant neoplasm of colon Medications: New hydrocortisone 2.5% 1 appl IN BID-QID PRN 30 grams 0RF hemorrhoids
[2024-05-16 11:25] VITALS: BP 118/76; PULSE 76; O2SAT 98; BMI 31.2
== END 2024-05-16 12:26 | disposition home or self-care (01) ==
PROVIDERS: PCP Nurse Practitioner Family; Visit Provider Nurse Practitioner Family
DX: Z12.11 Encounter for screening for malignant neoplasm of colon (principal); K86.89 Other specified diseases of pancreas; J98.4 Other disorders of lung; Z00.01 Encounter for general adult medical examination with abnormal findings; Z23 Encounter for immunization

== ENCOUNTER 2024-05-24 11:44 | Outpatient (REF) | payer OTHER, SELFPAY ==
--- NOTE | ~2024-05-24 | MM_ITS ---
EXAMINATION: MM SCREENING DIGITAL BREAST TOMOSYNTHESIS, BILATERAL CLINICAL INFORMATION: Screening. Asymptomatic. COMPARISON: Mammography: Comparison is made with available priors TECHNIQUE: Digital breast mammography with tomosynthesis is performed in both the craniocaudal and mediolateral oblique views along with computer-aided detection (CAD). FINDINGS: The breasts are heterogeneously dense, which may obscure small masses (ACR BI-RADS breast composition Category c). There are no significant masses, abnormal calcifications, or other abnormalities. MM/MM tomosynthesis screening BI IMPRESSION: No mammographic evidence of malignancy. ASSESSMENT: BI-RADS BI-RADS 1 - Negative RECOMMENDATION: Routine annual mammography screening. 1 year F/U This examination should not preclude the clinical evaluation of a suspicious palpable abnormality. This patient's information was entered into a reminder system with a target due date for their next mammogram. Electronically signed by: Nena Portillo DO 06/02/2024 10:30 AM EDT
== END 2024-05-24 11:45 | disposition home or self-care (01) ==
LOC: HO.MAMMO 11:44
PROVIDERS: PCP Nurse Practitioner Family; Visit Provider Nurse Practitioner Family
DX: Z12.31 Encounter for screening mammogram for malignant neoplasm of breast (principal)
CPT/HCPCS: 77063; 77067

== ENCOUNTER → 2024-05-24 12:15 | Outpatient (BNV) | payer OTHER, SELFPAY | PROVIDERS: PCP Nurse Practitioner Family; Visit Provider Internal Medicine | DX: Z12.31 Encounter for screening mammogram for malignant neoplasm of breast (principal) | CPT/HCPCS: 77063; 77067 ==

== ENCOUNTER 2024-07-12 14:50 | Outpatient (REF) | payer OTHER, SELFPAY | END 2024-07-12 14:51 | disposition home or self-care (01) | LOC: HO.CT 14:50 | PROVIDERS: PCP Nurse Practitioner Family; Visit Provider Nurse Practitioner Family | DX: K86.89 Other specified diseases of pancreas (principal) | CPT/HCPCS: 74150 ==

== ENCOUNTER → 2024-07-12 14:51 | Outpatient (BNV) | payer OTHER, SELFPAY | PROVIDERS: PCP Nurse Practitioner Family; Visit Provider Radiology Diagnostic Radiology | DX: K86.89 Other specified diseases of pancreas (principal) | CPT/HCPCS: 74150 ==

== ENCOUNTER 2024-11-21 11:32 | Outpatient (REF) | payer OTHER, SELFPAY ==
--- NOTE | ~2024-11-21 | XR_ITS ---
EXAMINATION: XR HAND, LEFT CLINICAL INFORMATION: M79.89 - Other specified soft tissue disorders COMPARISON: None available. TECHNIQUE: PA, lateral, and oblique views of the left hand. FINDINGS: The bones and soft tissues are normal. No fracture. Alignment is anatomic. Joint spaces are maintained. No erosions or soft tissue calcifications. XR/XR hand LT 2V IMPRESSION: Normal left hand. Electronically signed by: Fabien Renae MD 11/23/2024 09:36 AM EDT
--- OUTSIDE RECORDS SUMMARY | 2024-11-21 14:46 | XMS_ITS | Clinical Summary ---
Author Organization [facility] Address [address] [place] [address] Care Team Providers Care Outside Food Server Name Role Phone Unavailable Primary Care Provider [...] complete this topic Procedures * Due to [place] [employer] law, this organization might not be sharing negative HIV tests. Procedure Name Priority Date/Time Associated Diagnosis Comments HEPATITIS C AB WITH REFLEX TO RNA PCR, SERUM Routine 11/02/2013 12:12 PM EDT from Last 3 Months or Most Recently Relevant to Health Maintenance Results * Due to [place] [employer] law, this organization might not be sharing negative HIV tests. * HEPATITIS C ANTIBODY, SERUM (11/02/2013 12:12 PM EDT) Hepatitis C virus Ab NON-REACTI VE NON-REACT SUSAN [facility] Comment:{HEPATITIS C ANTIBOD Y {[id number]) Hepatitis C virus Ab Signal/Cutoff 0.03 <1.00 [facility] Comment:{SIGNAL TO CUT-OFF { [id number]) 11/02/2013 12:1 2 PM EDT 11/03/2013 4:13 AM EDT us Comfort De La Garza NP LABORATORY Final Result [facility] [address] [place] [address] from Last 3 Months or Most Recently Relevant to Health Maintenance
--- OUTSIDE RECORDS SUMMARY | 2024-11-21 14:46 | XMS_ITS | Clinical Summary ---
Author Organization [facility] Address [address] [place] [address] Care Team Providers Care Project Assistant Name Role Phone Stuart Timmons Primary Care [...] Apply to affected area 4 Active omega 2-wyv-mxh-fish oil (Fish OiL) 1,200 (144-216) mg capsule [...] Team Description 09/18/2024 3:00 PM EST Follow-Up [facility] [address] [place] [address] Metal Roofer: Reymundo Hussein MD Cystic-bullous disease of lung (Primary Dx) 09/18/2024 2:00 PM EST - 09/18/2024 11:59 PM EST Hospital Encounter [facility] Pulmonary Function Lab [address] [place] [address] Reymundo Hui MD Cystic-bullous disease of lung [...] Completed 05/16/2024, 04/11/2020 Procedures * Due to [place] [employer] law, this organization might not be sharing negative HIV tests. Procedure Name Priority Date/Time Associated Diagnosis Comments PULMONARY FUNCTION TEST Routine 09/18/2024 2:20 PM EST Cystic-bullous disease of lung from Last 3 Months Results * Due to [place] [employer] law, this organization might not be sharing [...] 3 Months Insurance [employer] Care Teams Project Assistant Relationship Specialty Start Date End Date Stuart Timmons [address] [place], [place] [phone] PCP - General 10/18/23
--- OUTSIDE RECORDS SUMMARY | 2024-11-21 14:46 | XMS_ITS | Referral Summary ---
Author Organization [facility] Address [address] [place] [address] Care Team Providers Care Formulator Name Role Phone AnahidominicStuart Primary Care Provider Encounters Date Type Department Care Team Description 09/18/2024 3:00 PM EST Follow-Up [facility] [address] [place] [address] Rock Room Worker: Reymundo Hussein MD Cystic-bullous disease of lung (Primary Dx) 09/18/2024 2:00 PM EST - 09/18/2024 11:59 PM EST Hospital Encounter [facility] [address] [place] [address] Reymundo Hui MD Cystic-bullous disease of lung [...] day. Apply to affected area Active omega 1-yuj-jdr-fish oil (Fish OiL) 1,200 (144-216) mg capsule [...] Not on file Procedures * Due to [place] [employer] law, this organization might not be sharing negative HIV tests. Procedure Name Priority Date/Time Associated Diagnosis Comments PULMONARY FUNCTION TEST Routine 09/18/2024 2:20 PM EST Cystic-bullous disease of lung from Last 3 Months Results * Due to [place] [employer] law, this organization might not be sharing [...] from Last 3 Months Insurance [place] [id number] Care Teams Formulator Relationship Specialty Start Date End Date Stuart iTmmons [address] [place], [place] [phone] PCP - General 10/18/23
== END 2024-11-21 11:33 | disposition home or self-care (01) ==
LOC: HO.HMGCX 11:32
PROVIDERS: PCP Nurse Practitioner Family; Visit Provider Nurse Practitioner Family
DX: L65.9 Nonscarring hair loss, unspecified (principal); M79.642 Pain in left hand; J98.4 Other disorders of lung
CPT/HCPCS: 73120; 96127; 99212

== ENCOUNTER 2024-11-21 11:32 | Outpatient (AMB) | payer OTHER, SELFPAY ==
--- NOTE | 2024-11-21 11:42 | MHC.PC.OV ---
Vital Signs 11/21/24 11:44 Height 5 ft Weight 170 lb BMI 33.2 BP 122/80 Blood Pressure Location Lt brachial Position Sitting Respiration 16 Pulse 82 Pulse Source Pulse Oximeter Temp 98.2 F Temp Source Oral Pulse Oximetry (%) 95 Oxygen Delivery Method Room Air Intake Visit Reasons: 6 months follow up Intake Note: Pt is here today for her 6mo. f/u Allergies lactose [LACTOSE] Allergy (Unknown, Verified 11/21/24 11:44) DIARRHEA milk [MILK] Adverse Reaction (Unknown, Verified 11/21/24 11:44) DIARRHEA Tobacco use date assessed: 11/21/24 Dental Screening Dental Screen Date: 11/21/24 Did you have a dental visit in the last 12 months?: Yes Did you have a dental problem in the last 6 months where you did not have access to dental care?: Yes Was dental information given to patient?: Patient has dentist [facility] Medical History Atrophic pancreas Elevated bilirubin Cystic-bullous disease of lung Osteoarthritis Lumbar spondylosis Cervical neck pain with evidence of disc disease 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 Paternal Grandfather No problems noted. Paternal Grandmother No problems noted. Brother No problems noted. Sister No problems noted. Social History Housing: House Alcohol intake: never Patient Tobacco Use Status: Former Tobacco user Tobacco use type: Cigarette e-Cigarette/Vaping Use: Never Used Second Hand Smoke Exposure: No service: No Current occupational status: disabled (temp disabled ) Current occupational exposures/hazards: No Cognitive needs: No Hearing needs: No Vision needs: Yes Questionnaire PHQ-9 Over the last 2 weeks, how often have you been bothered by any of the following problems? 1. Little interest or pleasure in doing things: not at all 2. Feeling down, depressed, or hopeless: not at all 3. Trouble falling or staying asleep, or sleeping too much: not at all 4. Feeling tired or having little energy: not at all 5. Poor appetite or overeating: more than half the days 6. Feeling bad about yourself - or that you are a failure or have let yourself or your family down: more than half the days 7. Trouble concentrating on things, such as reading the newspaper or watching television: more than half the days 8. Moving or speaking so slowly that other people could have noticed. Or the opposite - being so fidgety or restless that you have been moving around a lot more than usual: not at all 9. Thoughts that you would be better off or of hurting yourself in some way: not at all Total score: 6 Source: Developed by Drs. Benigno Chan, Stephany Howell, Jeffry Cormier and colleagues, with an educational jaison from [employer]. Thrive Questionnaire Date Thrive assessed: 11/18/24 I am a: Patient What is your living situation today?: I have a steady place to live Within the past 12 months, did the food you bought not last and you didn't have the money to get more?: Sometimes True Within the past 12 months, did you worry whether your food would run out before you got money to buy more?: Never true Do you have trouble paying for medicines?: No Do you have trouble getting transportation to medical appointments?: No Do you have trouble paying your heating and electricity bill?: Yes Do you have trouble taking care of your child, family member or friend?: Yes Do you have trouble with day-to-day activities such as bathing, preparing meals, shopping, managing finances, etc.?: Yes Are you currently unemployed and looking for a job?: Yes Are you interested in more education?: Yes Please select the resources that you would like help with: Education Currently or been in a relationship where the following occur: No concerns reported THRIVE Score: 2 AUDIT C Alcohol Use Questionnaire (AUDIT-C) 1. How often do you have a drink containing alcohol?: Never Total Score: 0 JUAN PABLO-7 AMB Questionnaire JUAN PABLO-7 Date JUAN PABLO - 7 assessed: 11/21/24 Feeling nervous, anxious, or on edge: 2 = More than half the days Not being able to stop or control worryin = More than half the days Worrying too much about different things: 2 = More than half the days Trouble relaxin = More than half the days Being so restless that it is hard to sit still: 2 = More than half the days Becoming easily annoyed or irritable: 0 = Not at all Feeling afraid as if something awful might happen: 2 = More than half the days Total JUAN PABLO-7 score (0-4 normal; 5-9 mild; 10-14 moderate; 15-21 severe): 12 Source: Developed by Drs. Benigno Chan, Stephany Howell, Jeffry Cormier and colleagues, with an educational jaison from [employer]. Physical exam (Primary Care) Tobacco/Smoking Status: Tobacco use Status Tobacco use date assessed 08/18/23 05/16/24 11:27 Patient Tobacco Use Status Former Tobacco user 05/16/24 11:27 Tobacco use type Cigarette 05/16/24 11:27 e-Cigarette/Vaping Use Never Used 05/16/24 11:27 Thrive Assessment: Date of Thrive Assessment Date Thrive assessed 11/18/24 11/18/24 13:50 Currently or been in a relationship where the following occur: No concerns reported Coding
--- NOTE | 2024-11-21 11:42 | MHC.PC.OV ---
Vital Signs 11/21/24 11:44 Height 5 ft Weight 170 lb BMI 33.2 BP 122/80 Blood Pressure Location Lt brachial Position Sitting Respiration 16 Pulse 82 Pulse Source Pulse Oximeter Temp 98.2 F Temp Source Oral Pulse Oximetry (%) 95 Oxygen Delivery Method Room Air Intake Visit Reasons: 6 months follow up Allergies lactose [LACTOSE] Allergy (Unknown, Verified 11/21/24 11:44) DIARRHEA milk [MILK] Adverse Reaction (Unknown, Verified 11/21/24 11:44) DIARRHEA Tobacco use date assessed: 08/18/23 Dental Screening Dental Screen Date: 08/18/23 HPI 6 months follow up HPI Details Chief Complaint Episodes of near syncope and diaphoresis. History of Present Illness The patient is a 49-year-old female presenting with episodes of near syncope and diaphoresis. These episodes involve a sensation of nearly passing out accompanied by significant sweating. Despite consulting various specialists who believe these symptoms are not related to her pulmonary condition, a possible sugar regulation issue has been suggested. 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 She also mentions ongoing hair loss, specifically around the anterior scalp, attributing it to genetic factors observed in other family members. The significance of dietary habits in relation to her condition was discussed, especially concerning obesity and the potential development of fatty liver, despite infrequent alcohol use. Lastly, left hand pain, specifically to bae aspect just inferior to 3rd finger. Social History - The patient does not consume alcohol frequently, only on special occasions or holidays. - There are concerns about obesity linked to dietary habits. - Reports family history of hair loss. Health Maintenance - Discussion on the importance of a healthy diet and portion sizes. - Emphasis on reducing the risk of fatty liver through dietary modifications. Review of Systems - Respiratory: Reports episodes of near syncope and diaphoresis. - Dermatologic: Reports hair loss on the anterior scalp. - Constitutional: Denies feeling unsteady or lightheaded outside the described episodes. Physical Exam General: Cooperative, healthy appearing, comfortable, no acute distress and well developed. Obese. Orientation: Patient oriented x3 Limitations: No limitations Head: Normal to inspection. Reports hair loss, more to the anterior aspect of the scalp. Ears: Hearing grossly normal bilaterally Nose: Normal external nose present Face and sinus: Normal facial exam Eyes: Appearance normal, both eyes and all related structures Neck: Normal visual inspection and Yes full ROM Respiratory: Normal respiratory effort and able to speak in complete sentences. Clear to auscultation bilaterally Cardiovascular: Regular rate and rhythm. Normal S1 and S2 GI: Normal to inspection. Soft to palpation and nontender Skin: No rashes or lesions noted. faint swelling to left third finger, proximal aspect, just inferior to 3rd finger, bae aspect. no erythema or signs of infection Neuro: Patient oriented x3 Extremities: Normal to inspection Results Plan In this visit, I addressed the patient's concerns about her lung condition and associated symptoms, as well as potential endocrine issues. We discussed monitoring and modifying her dietary habits to possibly alleviate her symptoms and address obesity and fatty liver risks. I recommended further evaluation and labs to investigate the underlying cause of her hair loss and suggested a referral to dermatology. A focus was placed on diet management to control weight and prevent fatty liver. The patient was informed about the importance of portion control in potentially managing her symptoms and further advised regarding the minimal impact of her occasional alcohol intake on her liver health. Discussion Notes I discussed with the patient the complexity of her symptoms, including the possible link between her dietary habits and suspected endocrine-related syncopal episodes. We reviewed the need for precise dietary control, considering the potential sugar regulation issue pointed out by her specialists. I stressed the importance of addressing hair loss through appropriate dermatological assessment and possible lab tests. We extensively covered dietary strategies to address obesity and the potential risk of fatty liver, reassuring her that her limited alcohol consumption is unlikely a significant contributor. The patient consented to the recommended investigations and referrals, signifying an understanding of their potential benefits and risks. Patient Instructions - Monitor your dietary portions and pursue balanced nutritional intake to possibly manage your symptoms. - Follow up with suggested lab tests for hair loss evaluation. - Schedule a visit with a radiation technician for a detailed evaluation of hair loss. - Continue minimizing alcohol intake and adhere to a healthy diet to reduce risk factors for fatty liver. - Reach out if symptoms worsen or new symptoms develop. 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 Paternal Grandfather No problems noted. Paternal Grandmother No problems noted. Brother No problems noted. Sister No problems noted. Social History Housing: House Alcohol intake: never Patient Tobacco Use Status: Former Tobacco user Tobacco use type: Cigarette e-Cigarette/Vaping Use: Never Used Second Hand Smoke Exposure: No service: No Current occupational status: disabled (temp disabled ) Current occupational exposures/hazards: No Cognitive needs: No Hearing needs: No Vision needs: Yes Questionnaire PHQ-9 Over the last 2 weeks, how often have you been bothered by any of the following problems? 1. Little interest or pleasure in doing things: not at all 2. Feeling down, depressed, or hopeless: not at all 3. Trouble falling or staying asleep, or sleeping too much: not at all 4. Feeling tired or having little energy: not at all 5. Poor appetite or overeating: more than half the days 6. Feeling bad about yourself - or that you are a failure or have let yourself or your family down: more than half the days 7. Trouble concentrating on things, such as reading the newspaper or watching television: more than half the days 8. Moving or speaking so slowly that other people could have noticed. Or the opposite - being so fidgety or restless that you have been moving around a lot more than usual: not at all 9. Thoughts that you would be better off or of hurting yourself in some way: not at all Total score: 6 Depression Screening Interpretation: Negative Depression Screening Done: Yes 66144 - PHQ-9 Billing: Yes Source: Developed by Drs. Benigno Chan, StephanyJeffry Zaidi and colleagues, with an educational jaison from [employer]. Thrive Questionnaire Date Thrive assessed: 11/18/24 I am a: Patient What is your living situation today?: I have a steady place to live Within the past 12 months, did the food you bought not last and you didn't have the money to get more?: Sometimes True Within the past 12 months, did you worry whether your food would run out before you got money to buy more?: Never true Do you have trouble paying for medicines?: No Do you have trouble getting transportation to medical appointments?: No Do you have trouble paying your heating and electricity bill?: Yes Do you have trouble taking care of your child, family member or friend?: Yes Do you have trouble with day-to-day activities such as bathing, preparing meals, shopping, managing finances, etc.?: Yes Are you currently unemployed and looking for a job?: Yes Are you interested in more education?: Yes Please select the resources that you would like help with: Education Currently or been in a relationship where the following occur: No concerns reported THRIVE Score: 2 AUDIT C Alcohol Use Questionnaire (AUDIT-C) 1. How often do you have a drink containing alcohol?: Never Total Score: 0 JUAN PABLO-7 AMB Questionnaire JUAN PABLO-7 Date JUAN PABLO - 7 assessed: 05/16/24 Feeling nervous, anxious, or on edge: 2 = More than half the days Not being able to stop or control worryin = More than half the days Worrying too much about different things: 2 = More than half the days Trouble relaxin = More than half the days Being so restless that it is hard to sit still: 2 = More than half the days Becoming easily annoyed or irritable: 0 = Not at all Feeling afraid as if something awful might happen: 2 = More than half the days Total JUAN PABLO-7 score (0-4 normal; 5-9 mild; 10-14 moderate; 15-21 severe): 12 Source: Developed by Drs. Benigno Chan, Jeffry Figueroa and colleagues, with an educational jaison from [employer]. JUAN PABLO-7 Assessment Billing JUAN PABLO-7 Assessment Tool: JUAN PABLO-7 Assessment 62355 (denies any si or hi) Physical exam (Primary Care) Vital Signs: Last Vital Signs Temp 98.2 F 11/21/24 11:44 Pulse 82 11/21/24 11:44 Resp 16 11/21/24 11:44 BP 122/80 11/21/24 11:44 Pulse Ox 95 11/21/24 11:44 Oxygen Delivery Method Room Air 11/21/24 11:44 BMI result Body Mass Index 33.2 Tobacco/Smoking Status: Tobacco use Status Tobacco use date assessed 11/21/24 11/21/24 11:50 Patient Tobacco Use Status Former Tobacco user 11/21/24 11:44 Tobacco use type Cigarette 11/21/24 11:44 e-Cigarette/Vaping Use Never Used 11/21/24 11:44 PHQ-9: PHQ-9 Score PHQ-9: Total score 6 11/21/24 11:44 Depression Screening Interpretation: Negative Thrive Assessment: Date of Thrive Assessment Date Thrive assessed 11/18/24 11/21/24 11:44 Currently or been in a relationship where the following occur: No concerns reported Coding Level of Care Code Est Pt Level 3 (01224) Diagnoses Hair loss L65.9 Left hand pain M79.642 Cystic-bullous disease of lung J98.4 Additional Codes PHQ-9 - 85263 - PHQ-9 Billing: Yes ([id number]) JUAN PABLO-7 Assessment Billing - JUAN PABLO-7 Assessment Tool: JUAN PABLO-7 Assessment 25211 ([id number]) Assessment & Plan Assessment & Plan (1) Hair loss: Code(s): L65.9 - Nonscarring hair loss, unspecified Category: Medical (2) Left hand pain: Code(s): M79.642 - Pain in left hand Category: Medical (3) Cystic-bullous disease of lung: Code(s): J98.4 - Other disorders of lung Category: Medical Plan . Orders: Orders Comprehensive [place]. Panel Fast Today L65.9 - Nonscarring hair loss, unspecified UA CC w/rflx Micro + Cult Today L65.9 - Nonscarring hair loss, unspecified Lipid Panel Today L65.9 - Nonscarring hair loss, unspecified Vitamin B6 Today L65.9 - Nonscarring hair loss, unspecified XR hand LT 2V Today M79.642 - Pain in left hand, M79.89 - Other specified soft tissue disorders Complete Blood Count Auto Diff Today L65.9 - Nonscarring hair loss, unspecified TSH reflex Free T4 Today L65.9 - Nonscarring hair loss, unspecified Vitamin B12 and Folate Today L65.9 - Nonscarring hair loss, unspecified Referrals Dermatology Referral L65.9 - Nonscarring hair loss, unspecified
[2024-11-21 11:44] VITALS: BP 122/80; PULSE 82; RESP 16; TEMP 36.8; O2SAT 95; BMI 33.2
--- OUTSIDE RECORDS SUMMARY | 2024-11-21 13:57 | XMS_ITS | Clinical Summary ---
Author Organization [facility] Address [address] [place] [address] Care Team Providers Care Gear Lapping Machine Operator Name Role Phone Stuart Timmons Primary Care Provider Allergies No known active allergies Medications cholecalciferol , vitamin D3, 125 mcg (5,000 unit) capsule Take 5,000 Units by mouth once a day. Active atorvastatin (LIPITOR) 20 mg tablet Take 20 mg by mouth once a day. Active clonazePAM (KlonoPIN) 1 mg tablet Take 1 mg by mouth 2 times a day as needed for anxiety. 4 Active escitalopram (LEXAPRO) 20 mg tablet Take 20 mg by mouth once a day. Active gabapentin (NEURONTIN) 100 mg capsule Take 100 mg by mouth 3 times daily. Active hydrocortisone (ANUSOL-HC) 2.5% rectal cream SMARTSIG:Recta lly 2-4 Times Daily PRN 4 Active LORazepam (ATIVAN) 1 mg tablet Take 1 mg by mouth every 6 hours as needed. Active mirtazapine (REMERON) 15 mg tablet Take 15 mg by mouth nightly. 4 Active nystatin (MYCOSTATIN) 100,000 unit/gram powder Apply topically to the affected area 3 times a day. Apply to affected area 4 Active omega 4-nte-tjj-fish oil (Fish OiL) 1,200 (144-216) mg capsule Active QUEtiapine (SEROquel) 100 mg tablet Take 100 mg by mouth nightly. Active rOPINIRole (REQUIP) 0.5 mg tablet Take 0.5 mg by mouth 3 times a day. 4 Active spironolactone (ALDACTONE) 100 mg tablet Take 100 mg by mouth once a day. Active Active Problems Problem Noted Date Diagnosed Date PTSD (post-traumatic stress disorder) 06/12/2024 Anxiety disorder 06/12/2024 Migraines 06/12/2024 Fibromyositis 06/12/2024 Cystic-bullous disease of lung 06/12/2024 Back pain 06/12/2024 Arthritis 06/12/2024 Encounters Date Type Department Care Team Description 09/18/2024 3:00 PM EST Follow-Up [facility] [address] [place] [address] Weigher Production: Reymundo Hussein MD Cystic-bullous disease of lung (Primary Dx) 09/18/2024 2:00 PM EST - 09/18/2024 11:59 PM EST Hospital Encounter [facility] [address] [place] [address] Reymundo Hui MD Cystic-bullous disease of lung Discharge Disposition: Home or Self Care () from Last 3 Months Immunizations Immunization Administration Dates Next Due INFLUENZA, SPLIT VIRUS, TRIVALENT, PF 05/16/2024 Influenza, Injectable, Quadrivalent, Preservativ e Free 04/11/2020 Pneumococcal Polysaccharide Vaccine, 23 Valent 0 04/11/2020 Social History Tobacco Use Types Packs/Day Years Used Date Smoking Tobacco: Former Cigarettes Smokeless Tobacco: Never Tobacco Cessation:Counseling Given: Not Answered Comments Unknown Sex and Gender Information Value Date Recorded Sex Assigned at Female 01/05/2024 11:51 AM EDT Legal Sex Female 9:27 AM EDT Gender Identity Female 01/05/2024 11:51 AM EDT Sexual Orientation Straight 01/05/2024 11 :51 AM EDT Last Filed Vital Signs Vital Sign Reading Time Taken Comments Blood Pressure 127/70 09/18/2024 3:04 PM EST Pulse 87 09/18/2024 3:04 PM EST Temperature - - Respiratory Rate 20 09/18/2024 3:04 PM EST Oxygen Saturation 97% 09/18/2024 3:04 PM EST Inhaled Oxygen Concentration - - Weight 68 kg (150 lb) 09/18/2024 3:04 PM EST Height - - Body Mass Index - - Plan of Treatment Health Maintenance Due Date Last Done Comments Cervical Cancer Screening 1976 Cologuard 1976 Colon Cancer Screening 1976 Colonoscopy 1976 FOBT / Fit Test 1976 HIV Screening 1976 HPV and Pap Smear 1976 Hepatitis C Screening 1976 Pap Smear 1976 Sigmoidoscopy 1976 Hepatitis B Vaccines (1 of 3 - 19+ 3-dose series) 1995 DTaP,Tdap,and Td Vaccines (1 - Tdap) 1998 Mammogram 2016 Pneumococcal Vaccine: Pediat fernando (0-5 Years) and At-Risk Patients (6-50 Years) (2 of 2 - PCV) 04/11/2021 04/11/2020 COVID-19 Vaccine ( - season) 2024 08/04/2021, 10/09/2020, 09/12/2020 Alcohol/Substance Use Screening 08/01/2024 Depression Screening and Follow-Up 08/01/2024 Social Drivers of Health Sole ual Screening 08/01/2024 RSV Vaccine (60+ years old a nd patients) (1 - 1-dose 75+ series) 2051 Influenza Vaccine Completed 05/16/2024, 04/11/2020 Procedures * Due to [place] [employer] law, this organization might not be sharing negative HIV tests. Procedure Name Priority Date/Time Associated Diagnosis Comments PULMONARY FUNCTION TEST Routine 09/18/2024 2:20 PM EST Cystic-bullous disease of lung from Last 3 Months Results * Due to [place] [employer] law, this organization might not be sharing negative HIV tests. * Pulmonary Function Test UNV; Spirometry, Lung Volumes, Diffusing Capacity; Spirometry alone (No bronchodilator); Lung volumes (Plethysmography); Diffusing capacity (DLco); shortness of breath (09/18/2024 2:20 PM EST) FVC (L) 2.63 L [facility] FVC % Predicted 93 % [facility] FEV1 (L) 2.05 L [facility] FEV1 % Predicted 88 % [facility] FEV1/FVC Ratio 78 % [facility] 09/18/2024 2:20 PM EST Narrative [facility] - 09/18/2024 2:20 PM EST There is no ventilatory impairment demonstrated by spirometry and lung volumes. ??The findings are within normal limits. Measurements of lung volumes do not suggest significant air trapping. Measure of uncorrected diffusing capacity (DLco) is most consistent with normal alveolar capillary membrane surface area and diffusion properties for gas exchange. us Reymundo Hui MD PFT ORDERABLES Final Res ult [facility] from Last 3 Months Insurance [employer] Care Teams Gear Lapping Machine Operator Relationship Specialty Start Date End Date Stuart Timmons 1960 [place], [place] [phone] PCP - General 10/18/23
--- OUTSIDE RECORDS SUMMARY | 2024-11-21 13:57 | XMS_ITS | Clinical Summary ---
Author Organization [facility] Address [address] [place] [address] Care Team Providers Care Business Lawyer Name Role Phone Unavailable Primary Care Provider Unavailabl e Allergies No known active allergies Medications * This document contains information received from the source organization and may not represent a complete record from that organization. Emtricitabine-Ten ofovir (TRUVADA) 200-300 MG TabIndications:Ex posure to body fluids by contaminated hypodermic needle stick 1 TABLET DAILY 30 Tab 0 11/02/2013 Active Active Problems No known active problems Social History Tobacco Use Types Packs/Day Years Used Date Smoking Tobacco: Never Alcohol Use Standard Drinks/Week Comments Not Asked 0 (1 standard drink = 0.6 oz pur e alcohol) Comments Unknown Sex and Gender Information Value Date Recorded Sex Assigned at Not on file Legal Sex Female 11:14 AM EDT Gender Identity Not on file Sexual Orientation Not on file Last Filed Vital Signs Vital Sign Reading Time Taken Comments Blood Pressure 110/80 11/02/2013 1:51 PM EDT Pulse 80 11/02/2013 1:51 PM EDT Temperature - - Respiratory Rate - - Oxygen Saturation - - Inhaled Oxygen Concentration - - Weight - - Height - - Body Mass Index - - Plan of Treatment Health Maintenance Due Date Last Done Comments Pap Smear 1992 DTaP/Tdap/Td (1 - Tdap) 1994 Hep B (1 of 3 - 19+ 3-dose series) 1995 Mammogram/Breast Imaging 2016 COVID-19 Vaccine ( - 2023-2 5 season) 2024 Influenza (#1) 2024 Zoster (Shingrix) (1 of 2) 2026 Hepatitis C Screening Completed 11/02/2013 HPV Vaccine Aged Out No longer eligi ble based on patient's age to complete this topic Hep A Aged Out No longer eligi ble based on patient's age to complete this topic Hib Aged Out No longer eligi ble based on patient's age to complete this topic Meningococcal ACWY Aged Out No longer eligible based on patient's age to complete this topic Pneumococcal Aged Out No longer eligi ble based on patient's age to complete this topic Procedures * Due to [place] [employer] law, this organization might not be sharing negative HIV tests. Procedure Name Priority Date/Time Associated Diagnosis Comments HEPATITIS C AB WITH REFLEX TO RNA PCR, SERUM Routine 11/02/2013 12:12 PM EDT from Last 3 Months or Most Recently Relevant to Health Maintenance Results * Due to [place] [employer] law, this organization might not be sharing negative HIV tests. * HEPATITIS C ANTIBODY, SERUM (11/02/2013 12:12 PM EDT) Hepatitis C virus Ab NON-REACTI VE NON-REACT SUSAN [facility] Comment:{HEPATITIS C ANTIBOD Y {[id number]) Hepatitis C virus Ab Signal/Cutoff 0.03 <1.00 [facility] Comment:{SIGNAL TO CUT-OFF { [id number]) 11/02/2013 12:1 2 PM EDT 11/03/2013 4:13 AM EDT us Comfort De La Garza NP LABORATORY Final Result [facility] [address] [place] [address] from Last 3 Months or Most Recently Relevant to Health Maintenance
--- OUTSIDE RECORDS SUMMARY | 2024-11-21 13:57 | XMS_ITS | Referral Summary ---
Author Organization [facility] Address [address] [place] [address] Care Team Providers Care Decorating Supervisor Name Role Phone AnahidominicStuart Primary Care Provider Encounters Date Type Department Care Team Description 09/18/2024 3:00 PM EST Follow-Up [facility] [address] [place] [id number] Handle Finisher: Reymundo Hussein MD Cystic-bullous disease of lung (Primary Dx) 09/18/2024 2:00 PM EST - 09/18/2024 11:59 PM EST Hospital Encounter [facility] [address] [place] [id number] Reymundo Hui MD Cystic-bullous disease of lung Discharge Disposition: Home or Self Care () from Last 3 Months Allergies No known active allergies Medications cholecalciferol , vitamin D3, 125 mcg (5,000 unit) capsule Take 5,000 Units by mouth once a day. Active atorvastatin (LIPITOR) 20 mg tablet Take 20 mg by mouth once a day. Active clonazePAM (KlonoPIN) 1 mg tablet Take 1 mg by mouth 2 times a day as needed for anxiety. Active escitalopram (LEXAPRO) 20 mg tablet Take 20 mg by mouth once a day. Active gabapentin (NEURONTIN) 100 mg capsule Take 100 mg by mouth 3 times daily. Active hydrocortisone (ANUSOL-HC) 2.5% rectal cream SMARTSIG:Recta lly 2-4 Times Daily PRN 10/16/202 4 Active LORazepam (ATIVAN) 1 mg tablet Take 1 mg by mouth every 6 hours as needed. Active mirtazapine (REMERON) 15 mg tablet Take 15 mg by mouth nightly. Active nystatin (MYCOSTATIN) 100,000 unit/gram powder Apply topically to the affected area 3 times a day. Apply to affected area Active omega 9-hjg-zxt-fish oil (Fish OiL) 1,200 (144-216) mg capsule Active QUEtiapine (SEROquel) 100 mg tablet Take 100 mg by mouth nightly. Active rOPINIRole (REQUIP) 0.5 mg tablet Take 0.5 mg by mouth 3 times a day. Active spironolactone (ALDACTONE) 100 mg tablet Take 100 mg by mouth once a day. Active Active Problems Problem Noted Date Diagnosed Date PTSD (post-traumatic stress disorder) 06/12/2024 Anxiety disorder 06/12/2024 Migraines 06/12/2024 Fibromyositis 06/12/2024 Cystic-bullous disease of lung 06/12/2024 Back pain 06/12/2024 Arthritis 06/12/2024 Immunizations Immunization Administration Dates Next Due INFLUENZA, [...] Mass Index - - Plan of Treatment Not on file Procedures * Due to [place] [employer] law, this organization might not be sharing negative HIV tests. Procedure Name Priority Date/Time Associated Diagnosis Comments PULMONARY FUNCTION TEST Routine 09/18/2024 2:20 PM EST Cystic-bullous disease of lung from Last 3 Months Results * Due to [place] [employer] law, this organization might not be sharing [...] 3 Months Insurance [employer] Care Teams Decorating Supervisor Relationship Specialty Start Date End Date Stuart Timmons [address] [place], [place] [phone] PCP - General 10/18/23
== END 2024-11-21 12:24 | disposition home or self-care (01) ==
LOC: HO.HMCC 11:33
PROVIDERS: PCP Nurse Practitioner Family; Visit Provider Nurse Practitioner Family
DX: L65.9 Nonscarring hair loss, unspecified (principal); M79.642 Pain in left hand; J98.4 Other disorders of lung

== ENCOUNTER → 2024-11-21 12:34 | Outpatient (BNV) | payer OTHER, SELFPAY | PROVIDERS: PCP Nurse Practitioner Family; Visit Provider Radiology Diagnostic Radiology | DX: M79.89 Other specified soft tissue disorders (principal) | CPT/HCPCS: 73120 ==

== ENCOUNTER 2024-11-22 12:38 | Outpatient (REF) | payer OTHER, SELFPAY ==
--- OUTSIDE RECORDS SUMMARY | 2024-11-22 14:51 | XMS_ITS | Clinical Summary ---
Author Organization [facility] Address [address] [place] [address] Care Team Providers Care Intermediate Accountant Name Role Phone Stuart Timmons Primary Care [...] Apply to affected area 4 Active omega 7-qsx-amt-fish oil (Fish OiL) 1,200 (144-216) mg capsule [...] Team Description 09/18/2024 3:00 PM EST Follow-Up [facility] [address] [place] [address] Mri Manager: Reymundo Hussein MD Cystic-bullous disease of lung (Primary Dx) 09/18/2024 2:00 PM EST - 09/18/2024 11:59 PM EST Hospital Encounter [facility] Pulmonary Function Lab [address] [place] [address] Reymundo Hui MD Cystic-bullous disease of lung [...] Completed 05/16/2024, 04/11/2020 Procedures * Due to [place] [employer] law, this organization might not be sharing negative HIV tests. Procedure Name Priority Date/Time Associated Diagnosis Comments PULMONARY FUNCTION TEST Routine 09/18/2024 2:20 PM EST Cystic-bullous disease of lung from Last 3 Months Results * Due to [place] [employer] law, this organization might not be sharing [...] 3 Months Insurance [employer] Care Teams Intermediate Accountant Relationship Specialty Start Date End Date Stuart Timmons [address] [place], [place] [phone] PCP - General 10/18/23
--- OUTSIDE RECORDS SUMMARY | 2024-11-22 14:51 | XMS_ITS | Referral Summary ---
Author Organization [facility] Address [address] [place] [address] Care Team Providers Care Boatbuilder Wood Name Role Phone AnahidominicStuart Primary Care Provider [phone] Encounters Date Type Department Care Team Description 09/18/2024 3:00 PM EST Follow-Up [facility] [address] [place] [address] Sales Analytics Manager: Reymundo Hussein MD Cystic-bullous disease of lung (Primary Dx) 09/18/2024 2:00 PM EST - 09/18/2024 11:59 PM EST Hospital Encounter [facility] Pul[facility] Function [facility] [address] [place] [address] Reymundo Hui MD Cystic-bullous disease of lung [...] day. Apply to affected area Active omega 3-xvq-gpi-fish oil (Fish OiL) 1,200 (144-216) mg capsule [...] on file Procedures * Due to [place] [employer] law, this organization might not be sharing negative HIV tests. Procedure Name Priority Date/Time Associated Diagnosis Comments PULMONARY FUNCTION TEST Routine 09/18/2024 2:20 PM EST Cystic-bullous disease of lung from Last 3 Months Results * Due to [place] [employer] law, this organization might not be sharing [...] 3 Months Insurance [employer] Care Teams Boatbuilder Wood Relationship Specialty Start Date End Date Stuart Timmons [address] [place], [place] [phone] PCP - General 10/18/23
--- OUTSIDE RECORDS SUMMARY | 2024-11-22 14:51 | XMS_ITS | Clinical Summary ---
Author Organization [facility] Address [address] [place] [address] Care Team Providers Care Material Distributor Name Role Phone Unavailable Primary Care Provider [...] complete this topic Procedures * Due to [place] [employer] law, this organization might not be sharing negative HIV tests. Procedure Name Priority Date/Time Associated Diagnosis Comments HEPATITIS C AB WITH REFLEX TO RNA PCR, SERUM Routine 11/02/2013 12:12 PM EDT from Last 3 Months or Most Recently Relevant to Health Maintenance Results * Due to [place] [employer] law, this organization might not be sharing negative HIV tests. * HEPATITIS C ANTIBODY, SERUM (11/02/2013 12:12 PM EDT) Hepatitis C virus Ab NON-REACTI VE NON-REACT SUSAN [facility] Comment:{HEPATITIS C ANTIBOD Y {[id number]) Hepatitis C virus Ab Signal/Cutoff 0.03 <1.00 [facility] Comment:{SIGNAL TO CUT-OFF { [id number]) 11/02/2013 12:1 2 PM EDT 11/03/2013 4:13 AM EDT us Comfort De La Garza NP LABORATORY Final Result [facility] [address] [place] [address] from Last 3 Months or Most Recently Relevant to Health Maintenance
[2024-11-22 16:20] LABS: Mean Corpuscular Hemoglobin 31.4 pg (27.0-33.0); Monocytes Absolute Auto 0.3 X10*3/uL (0.1-1.2); PLT CLUMP 1; Red Blood Count 4.14 X10*6/uL (4.20-5.50); SCAN SMEAR FLAG 1
[2024-11-22 16:22] LABS: Basophils Percent Auto 0.8 % (0-2); Eosinophils Absolute Auto 0.2 X10*3/uL (0.0-0.4); Eosinophils Percent Auto 3.1 % (0-4); Hematocrit 38.2 % (37.0-47.0); Imm Gran Abs Auto 0.03 X10*3/uL (0.00-0.03); Imm Gran Pct Auto 0.6 % (0.0-0.4); Lymphocytes Absolute Auto 1.7 X10*3/uL (1.2-4.9); Lymphocytes Percent Auto 33.1 % (20-40); MANUAL DIFF FLAG SCAN; Mean Corpuscular Volume 92.3 fL (80.0-98.0); Monocytes Percent Auto 6.2 % (2-11); Neutrophils Absolute Auto 2.9 x10*3/uL (2.0-8.3); Neutrophils Percent Auto 56.2 % (45-73); Red Cell Distribution Width 12.8 % (11.0-16.0)
[2024-11-22 16:36] LABS: Appearance Urine Turbid; Color Urine Yellow; Glucose Urine UA Negative (Negative); Leukocyte Esterase Urine Negative (Negative); Nitrite Urine Negative (Negative); Specific Gravity - Urine >= 1.030 (1.005-1.025); UMIC TRIGGER UACC YES; Urine Blood Trace (Negative); Urine Ketones Negative (Negative); Urine Protein Trace mg/dL (Neg-Trace)
[2024-11-22 16:41] LABS: White Blood Count 5.2 X10*3/uL (4.8-10.8)
[2024-11-22 16:44] LABS: Anion Gap 13 (12-20)
[2024-11-22 16:48] LABS: Vitamin B12 404 pg/mL (200-900)
[2024-11-22 16:49] LABS: Bacteria Urine 4+ (None Seen); RBC Urine 0-2 /HPF (0-2); UACC Culture Trigger YES
[2024-11-22 16:51] LABS: Alanine Aminotransferase 20 U/L (0-31); Albumin Level 4.3 g/dL (3.5-5.0); Alkaline Phosphatase 102 U/L (39-117); Aspartate Amino Transferase 30 U/L (5-31); Bilirubin Total 1.6 mg/dL (0.0-1.0); Blood Urea Nitrogen 14 mg/dL (9-16); Calcium 9.2 mg/dL (8.4-10.2); Carbon Dioxide 19 mmol/L (22-29); Chloride 107 mmol/L (96-108); Cholesterol 192 mg/dL (<200); Estimated Glomerular Filt Rate > 60; Glucose Fasting 110 mg/dL (60-99); HDL Cholesterol 36 mg/dL (>40); LDL Cholesterol Calculated 110 mg/dL (<100); Potassium 4.3 mmol/L (3.3-5.1); Sodium 135 mmol/L (135-145); TSH reflex Free T4 0.26 uIU/mL (0.32-4.0); Total Protein 7.9 g/dL (6.5-8.0); Triglycerides 232 mg/dL (<150)
[2024-11-22 17:31] LABS: Platelet Count 292 X10*3/uL (160-400); SLIDE REVIEW VERIFIED
[2024-11-22 17:33] LABS: Free T4 (Free Thyroxine) 0.73 ng/dL (0.71-1.85)
== END 2024-11-22 12:39 | disposition home or self-care (01) ==
LOC: HO.HMGCLDS 12:38
PROVIDERS: PCP Nurse Practitioner Family; Visit Provider Nurse Practitioner Family
DX: L65.9 Nonscarring hair loss, unspecified (principal)
CPT/HCPCS: 36415; 80053; 80061; 81001; 82607; 82746; 84207; 84439; 84443; 85025; 87086

== ENCOUNTER 2025-05-07 11:38 | Outpatient (AMB) | payer OTHER, SELFPAY ==
--- NOTE | 2025-05-07 11:43 | MHC.PC.OV ---
Vital Signs 05/07/25 11:44 Height 5 ft Weight 157 lb BMI 30.7 BP 120/80 Blood Pressure Location Lt brachial Position Sitting Pulse 71 Pulse Source Pulse Oximeter Pulse Oximetry (%) 98 Intake Visit Reasons: 5-6m follow up Inspector Cold Working Required: No Accompanied by: Self / Same As Patient Allergies lactose (LACTOSE) Allergy (Unknown, Verified 05/07/25 12:34) DIARRHEA milk (MILK) Adverse Reaction (Unknown, Verified 05/07/25 12:34) DIARRHEA Medication List - Last Reconciled 05/07/25 by LUZ MARINA TellezP- acetaminophen (Tylenol Extra Strength) 500 mg PO Q6H PRN 30 days atorvastatin 20 mg PO DAILY 90 days clonazepam 1 mg PO BID PRN escitalopram oxalate 20 mg PO DAILY gabapentin 100 mg PO TID 30 days lorazepam 1 mg PO Q12H PRN 30 days nystatin 1 appl topical BID quetiapine 25 mg PO BEDTIME quetiapine 100 mg PO BEDTIME ropinirole 0.75 mg (3 x 0.25 mg) PO BEDTIME spironolactone 100 mg PO 2 tabs in morning, 1 tab at night; sumatriptan succinate 50 mg PO ONCE PRN 10 days Tobacco use date assessed: 11/21/24 Dental Screening Dental Screen Date: 11/21/24 HPI 5-6m follow up HPI Details Chief Complaint The patient presents with chest tightness and shortness of breath. History of Present Illness The patient is a 50-year-old female presenting with a generalized follow-up visit. She reports experiencing chest tightness located in the anterior chest beneath the pectorals, extending to the epigastric region, accompanied by shortness of breath, diaphoresis, and occasional syncope. These symptoms have persisted for years, and there is a suspicion of a connection to the cystic formations in her lungs, although specialists have not confirmed this association. The patient has a history of fibromyalgia, which was diagnosed by a car tester, and she reports an increase in body aches recently. There is also a consideration of muscle spasms contributing to her symptoms (as mentioned by pulmonary team at [facility]). 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 She denies any significant changes in fatigue but does experience intermittent fatigue. Social History Health Maintenance Review of Systems - Cardiovascular: Reports chest tightness and syncope. Denies current chest pain. - Respiratory: Reports shortness of breath. Denies current dyspnea. - Neurological: Reports diaphoresis and intermittent fatigue. Physical Exam General: Cooperative, healthy appearing, comfortable, no acute distress and well developed Orientation: Patient oriented x3 Limitations: No limitations Head: Normal to inspection Ears: Hearing grossly normal bilaterally Nose: Normal external nose present Face and sinus: Normal facial exam Eyes: Appearance normal, both eyes and all related structures Neck: Normal visual inspection and Yes full ROM Respiratory: Normal respiratory effort and able to speak in complete sentences. Clear to auscultation bilaterally Cardiovascular: Regular rate and rhythm. Normal S1 and S2 GI: Normal to inspection. Soft to palpation and nontender Skin: No rashes or lesions noted Neuro: Patient oriented x3, cn 2-12 intact, neg arm pull test, heel to stanley, finger to thumb Extremities: Normal to inspection Results PLAN: 1. Cystic Lung Disease The patient will follow up with her [place] provider for further evaluation of her cystic lung disease. 2. Fibromyalgia The patient has been diagnosed with fibromyalgia by rheumatology and reports increased body aches. 3. Pineal Cyst The patient will have an MRI to monitor the pineal cyst for any changes in size. Discussion Notes I discussed with the patient the need to follow up with her [place] provider for further evaluation of her cystic lung disease. We also talked about monitoring her pineal cyst with an MRI to ensure it is not increasing in size. I advised her to follow up in 6 months for a physical exam and to contact me with any questions or concerns. Patient Instructions - Follow up with your [place] provider for further evaluation of your lung condition. - Schedule an MRI to monitor your pineal cyst. - Return for a physical exam in 6 months. - Contact the clinic with any questions or concerns. 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 Paternal Grandfather No problems noted. Paternal Grandmother No problems noted. Brother No problems noted. Sister No problems noted. Social History Housing: House Alcohol intake: never Patient Tobacco Use Status: Former Tobacco user Tobacco use type: Cigarette e-Cigarette/Vaping Use: Never Used Second Hand Smoke Exposure: No service: No Current occupational status: disabled (temp disabled ) Current occupational exposures/hazards: No Cognitive needs: No Hearing needs: No Vision needs: Yes Questionnaire PHQ-9 Over the last 2 weeks, how often have you been bothered by any of the following problems? 1. Little interest or pleasure in doing things: not at all 2. Feeling down, depressed, or hopeless: not at all 3. Trouble falling or staying asleep, or sleeping too much: not at all 4. Feeling tired or having little energy: not at all 5. Poor appetite or overeating: more than half the days 6. Feeling bad about yourself - or that you are a failure or have let yourself or your family down: more than half the days 7. Trouble concentrating on things, such as reading the newspaper or watching television: more than half the days 8. Moving or speaking so slowly that other people could have noticed. Or the opposite - being so fidgety or restless that you have been moving around a lot more than usual: not at all 9. Thoughts that you would be better off or of hurting yourself in some way: not at all Total score: 6 Depression Screening Interpretation: Negative Depression Screening Done: Yes Source: Developed by Drs. Benigno Chan, Stephany Howell, Jeffry Cormier and colleagues, with an educational jaison from [employer]. Thrive Questionnaire Date Thrive assessed: 11/18/24 I am a: Patient What is your living situation today?: I have a steady place to live Within the past 12 months, did the food you bought not last and you didn't have the money to get more?: Sometimes True Within the past 12 months, did you worry whether your food would run out before you got money to buy more?: Never true Do you have trouble paying for medicines?: No Do you have trouble getting transportation to medical appointments?: No Do you have trouble paying your heating and electricity bill?: Yes Do you have trouble taking care of your child, family member or friend?: Yes Do you have trouble with day-to-day activities such as bathing, preparing meals, shopping, managing finances, etc.?: Yes Are you currently unemployed and looking for a job?: Yes Are you interested in more education?: Yes Please select the resources that you would like help with: Education Currently or been in a relationship where the following occur: No concerns reported THRIVE Score: 2 AUDIT C Alcohol Use Questionnaire (AUDIT-C) 1. How often do you have a drink containing alcohol?: Never 3. How often do you have six or more drinks on one occasion?: Never Total Score: 0 Score Reviewed/Action Taken: Yes JUAN PABLO-7 AMB Questionnaire JUAN PABLO-7 Date JUAN PABLO - 7 assessed: 11/21/24 Source: Developed by Drs. Benigno Chan, Stephany Howell, Jeffry Cormier and colleagues, with an educational jaison from [employer]. Physical exam (Primary Care) Vital Signs: Last Vital Signs Pulse 71 05/07/25 11:44 BP 120/80 05/07/25 11:44 Pulse Ox 98 05/07/25 11:44 BMI result Body Mass Index 30.7 Tobacco/Smoking Status: Tobacco use Status Tobacco use date assessed 11/21/24 05/07/25 11:45 Patient Tobacco Use Status Former Tobacco user 05/07/25 11:45 Tobacco use type Cigarette 05/07/25 11:45 e-Cigarette/Vaping Use Never Used 05/07/25 11:45 PHQ-9: PHQ-9 Score PHQ-9: Total score 6 05/07/25 11:45 Depression Screening Interpretation: Negative Thrive Assessment: Date of Thrive Assessment Date Thrive assessed 11/18/24 05/07/25 11:45 Currently or been in a relationship where the following occur: No concerns reported Coding Level of Care Code Est Pt Level 4 (74693) Diagnoses Fibromyalgia M79.7 Cystic-bullous disease of lung J98.4 Cyst of brain G93.0 Assessment & Plan Assessment & Plan (1) Fibromyalgia: Code(s): M79.7 - Fibromyalgia Category: Medical (2) Cystic-bullous disease of lung: Code(s): J98.4 - Other disorders of lung Category: Medical (3) Cyst of brain: Code(s): G93.0 - Cerebral cysts Category: Medical Plan . Orders: Orders MR head/brain wo/w con Today G93.0 - Cerebral cysts TSH reflex Free T4 Today J98.4 - Other disorders of lung, M79.7 - Fibromyalgia Complete Blood Count Auto Diff Today J98.4 - Other disorders of lung, M79.7 - Fibromyalgia Comprehensive [place]. Panel Fast Today J98.4 - Other disorders of lung, M79.7 - Fibromyalgia UA CC w/rflx Micro + Cult Today J98.4 - Other disorders of lung, M79.7 - Fibromyalgia Lipid Panel Today J98.4 - Other disorders of lung, M79.7 - Fibromyalgia
[2025-05-07 11:44] VITALS: BP 120/80; PULSE 71; O2SAT 98; BMI 30.7
--- OUTSIDE RECORDS SUMMARY | 2025-05-07 14:42 | XMS_ITS | Encounter Summary ---
Author Organization [facility] Address [address] [facility] [address] [place] [address] Phone Care Team Providers Care Information Clerk Automobile Club Name Role Phone Dede Richard MD Primary Care Provider [phone] Encounter Details Date Type Department Care Team (Late st Contact Info) Description 10/01/2021 Procedure [facility] [address] [place] [address] Social History Tobacco Use Types Packs/Day Years [...] documented as of this encounter Care Teams Information Clerk Automobile Club Relationship Specialty Start Date End Date Dede Richard MD [facility] [place] [address] PCP - General Internal Medicine 06/22/19 documented as of this encounter Additional Source Comments The information contained in this document represents components of the legal health record. It is not the complete legal health record.[facility]
--- OUTSIDE RECORDS SUMMARY | 2025-05-07 14:43 | XMS_ITS | Clinical Summary ---
Author Organization [facility] Address [address] [place] [address] Care Team Providers Care Marshmallow Runner Name Role Phone Stuart Timmons Primary Care [...] Apply to affected area 4 Active omega 5-sem-ows-fish oil (Fish OiL) 1,200 (144-216) mg capsule [...] series) 2051 Insurance [employer] Care Teams Marshmallow Runner Relationship Specialty Start Date End Date Stuart Timmons [facility] [place], [place] [id number] PCP - General 10/18/23
--- OUTSIDE RECORDS SUMMARY | 2025-05-07 14:43 | XMS_ITS | Clinical Summary ---
Author Organization [facility] Address [address] [place] [address] Care Team Providers Care Chief Of Harbor Patrol Name Role Phone Unavailable Primary Care Provider [...] Mammogram/Breast Imaging 2016 COVID-19 Vaccine ( - 2024-2 6 season) 2025 Influenza (#1) 2025 Zoster (Shingrix) [...] complete this topic Procedures * Due to [place] law, this organization might not be sharing negative HIV tests. Procedure Name Priority Date/Time Associated Diagnosis Comments HEPATITIS C AB WITH REFLEX TO RNA PCR, SERUM Routine 11/02/2013 12:12 PM EDT from Last 3 Months or Most Recently Relevant to Health Maintenance Results * Due to [place] law, this organization might not be sharing negative HIV tests. * HEPATITIS C ANTIBODY, SERUM (11/02/2013 12:12 PM EDT) Hepatitis C virus Ab NON-REACTI VE NON-REACT SUSAN [facility] Comment:{HEPATITIS C ANTIBOD Y {[id number]) Hepatitis C virus Ab Signal/Cutoff 0.03 <1.00 [facility] Comment:{SIGNAL TO CUT-OFF { [id number]) 11/02/2013 12:1 2 PM EDT 11/03/2013 4:13 AM EDT us Comfort De La Garza NP LABORATORY Final Result [facility] [address] [place] [address] from Last 3 Months or Most Recently Relevant to Health Maintenance
--- OUTSIDE RECORDS SUMMARY | 2025-05-07 14:43 | XMS_ITS | Encounter Summary ---
Author Organization [facility] Address [address] [facility] [address] [place] [address] Phone Care Team Providers Care Tag Writer Name Role Phone Dede Richard MD Primary Care Provider Encounter Details Date Type Department Care Team (Late st Contact Info) Description 07/01/2022 Procedure Pass [facility], [place] [address] [place] [address] Social History Tobacco Use Types Packs/Day Years [...] documented as of this encounter Care Teams Tag Writer Relationship Specialty Start Date End Date Dede Richard MD [address] [facility] [place] [address] PCP - General Internal Medicine 06/22/19 documented as of this encounter Additional Source Comments The information contained in this document represents components of the legal health record. It is not the complete legal health record.[facility]
--- OUTSIDE RECORDS SUMMARY | 2025-05-07 14:43 | XMS_ITS | Patient Health Record ---
Author Organization [facility] Address [address] [place] [address] Care Team Providers Care Marketing Rep Name Role Phone GUILLAUME RAY Primary Care [...] PO BID Oral f or 30 Active Yrlqj-[id number] Ethyl Esters 1 GM 2 capsules Orally [...] Problem Status W/U Status Risk Notes Problem 40479398 Rectal bleeding (K62.5) Active confirmed Problem [id number] Irritable bowel syndrome with diarrhea (K58.0) Active confirmed Problem [id number] Gastroesophageal reflux disease without esophagitis (K21.9) Active confirmed Plan Of Treatment Future Test Test Name Order Date COLONOSCOPY 11/08/2018 Insurance Providers Payer Name Payer Address Payer Phone Subscriber Number Group Number Insured Name Patient Relationship to Insured Coverage Start Date Coverage End Date [facility] [address] [address] [place], [place] [id number] BENTLEY CHARLES Self - patient is the insured MEDICAID OF [facility] [address] [place] [address] [id number] BENTLEY CHARLES Self - patient is the insured Medical (General) History Medical History History ICD Code anxiety polycystic ovary syndrome fibromyalgia insomnia Denies [place],DM,CVA,renal disease asthma Surgical History Surgery Date(Month/Year) section x4
--- OUTSIDE RECORDS SUMMARY | 2025-05-07 14:43 | XMS_ITS | Encounter Summary ---
Author Organization [facility] Address [address] [facility] [address] [place] [address] Phone Care Team Providers Care Ski Lift Operator Name Role Phone Stuart Timmons NP Primary Care Provider + Dede Richard MD Primary Care Provider [phone] Reason for Referral * MRI/CAT Scan - Closed Specialty Diagnoses / Procedures Referred By Contac t Referred To Contact Procedures CT Chest Outside (No Interpretation) Kathie Mccarty MD Phone: tel: fax: mailto:[email or web address] Referral ID Status Reason Start Date Expiration Date Visits Re quested Visits Authorized [id number] Closed 06/11/2019 06/10/2020 1 1 * MRI/CAT Scan - Closed Specialty Diagnoses / Procedures Referred By Contac t Referred To Contact Procedures CT Abdomen/Pelvis Outside (No Interpretation) Kathie Mccarty MD Phone: tel: fax: mailto:[email or web address] Referral ID Status Reason Start Date Expiration Date Visits Re quested Visits Authorized [id number] Closed 06/07/2019 06/06/2020 1 1 * MRI/CAT Scan - Closed Specialty Diagnoses / Procedures Referred By Contac t Referred To Contact Procedures CT Abdomen/Pelvis Outside (No Interpretation) Kathie Mccarty MD Phone: tel: fax: mailto:[email or web address] Referral ID Status Reason Start Date Expiration Date Visits Re quested Visits Authorized [id number] Closed 06/07/2019 06/06/2020 1 1 Encounter Details Date Type Department Care Team (Late st Contact Info) Description 06/07/2019 Transcribe Orders [facility] [address] [address] Rajiv Sumner [address] [place] [address] [email or web address] Social History Tobacco Use Types Packs/Day Years [...] (No Interpretation) (06/11/2019 10:26 AM EST) Narrative [facility] - 06/11/2019 10:26 AM EST This study is for PACS storage only and not for interpretation. Kathie Mccarty MD IMG OUTSIDE IMAGING W/ OUT INTERPRETATION Final Result [facility] * Pelvis Outside (No Interpretation) (06/07/2019 9:05 AM EST) Narrative [facility] - 06/07/2019 9:05 AM EST This study is for PACS storage only and not for interpretation. Kathie Mccarty MD IMG OUTSIDE IMAGING W/ OUT INTERPRETATION Final Result [facility] * US Pelvis Outside (No Interpretation) (06/07/2019 9:05 AM EST) Narrative [facility] - 06/07/2019 9:05 AM EST This study is for PACS storage only and not for interpretation. us Kathie Mccarty MD IMG OUTSIDE IMAGING W/ OUT INTERPRETATION Final Result Performing Organization Address City[facility] Co de Phone Number [facility] * CT Abdomen/Pelvis Outside (No Interpretation) (06/07/2019 [...] on filedocumented in this encounter Care Teams Ski Lift Operator Relationship Specialty Start Date End Date Stuart Timmons NP [address] [facility] [place] [address] PCP - General Family Medicine 05/30/19 06/21/19 Dede Richard MD [address] [facility] [place] [address] PCP - General Internal Medicine 06/22/19 documented as of this encounter Additional Source Comments The information contained in this document represents components of the legal health record. It is not the complete legal health record.[facility]
--- OUTSIDE RECORDS SUMMARY | 2025-05-07 14:43 | XMS_ITS | Clinical Summary ---
Author Organization [facility] Address [address] [place] [address] Phone Care Team Providers Care Wood Pile Driver Operator Name Role Phone Dede Richard MD Primary Care Provider [phone] Allergies No known active allergies Medications gabapentin [...] Years Used Date Smoking Tobacco: Former Cigarettes 1994 Smokeless Tobacco: Never Comments:3 cigarettes a [...] EDT) SODIUM 142 136 - 145 mmol/L [facility] POTASSIUM 4.2 3.4 - 5.1 mmol/L [facility] CHLORIDE 104 98 - 107 mmol/L [facility] CO2 23 22 - 31 mmol/L [facility] BUN 9 6 - 23 mg/dL [facility] CREATININE 0.73 0.50 - 1.20 mg/dL [facility] GLUCOSE 112(H) 70 - 100 mg/dL [facility] CALCIUM 9.2 8.8 - 10.7 mg/dL [facility] EGFR 103 >59 mL/min/1.7 3m2 [facility] Comment:Estimated glomerular filtration rate calculated using the CKD-EPI refit equation. ANION GAP 15 7 - 17 mmol/L [facility] 03/09/2022 8:50 AM EDT 03/09/2022 9:04 AM EDT Jeffrey Christiansen MD LAB BLOOD ORDERABLES Final R esult [facility] [address] [place] [phone] from Last 3 Months or Most Recently Relevant to Health Maintenance Insurance ACO ACO ACO ACO ACO ACO [place] [address] [address] [place] [address] ACO Care Teams Wood Pile Driver Operator Relationship Specialty Start Date End Date Dede Richard MD [facility] [place] [address] PCP - General Internal Medicine 06/22/19 Additional Source Comments The information contained in this document represents components of the legal health record. It is not the complete legal health record.[facility]
== END 2025-05-07 12:22 | disposition home or self-care (01) ==
LOC: HO.HMCC 11:38
PROVIDERS: PCP Nurse Practitioner Family; Visit Provider Nurse Practitioner Family
DX: M79.7 Fibromyalgia (principal); J98.4 Other disorders of lung; G93.0 Cerebral cysts

== ENCOUNTER → 2025-05-07 11:38 | Outpatient (BNVA) | payer OTHER, SELFPAY | PROVIDERS: PCP Nurse Practitioner Family; Visit Provider Nurse Practitioner Family | DX: M79.7 Fibromyalgia (principal); R07.89 Other chest pain; R53.83 Other fatigue; G93.0 Cerebral cysts; J98.4 Other disorders of lung | CPT/HCPCS: 99212 ==

== ENCOUNTER 2025-05-29 09:38 | Day surgery (SDC) | payer OTHER, SELFPAY ==
--- OUTSIDE RECORDS SUMMARY | 2025-05-02 13:52 | XMS_ITS | Encounter Summary ---
Author Organization [facility] Address [address] [facility] [address] [place] [address] Phone Care Team Providers Care Agricultural Commodities Inspector Name Role Phone Dede Richard MD Primary Care Provider [phone] Encounter Details Date Type Department Care Team (Late st Contact Info) Description 10/01/2021 Procedure Pass [facility] [address] [place] [address] Social History Tobacco Use Types Packs/Day Years Used Date Smoking Tobacco: Former Cigarettes 1 - 1994 Smokeless Tobacco: Never Comments:3 cigarettes a day Comments Unknown Sex and Gender Information Value Date Recorded Sex Assigned at Female 05/30/2019 11:22 AM EDT Legal Sex Female 11:10 AM EDT Gender Identity Female 05/30/2019 11:22 AM EDT Sexual Orientation Straight 05/30/2019 11 :22 AM EDT documented as of this encounter Plan of Treatment Not on file documented as of this encounter Visit Diagnoses Not on filedocumented in this encounter Additional Health Concerns Assessment Noted Time PHQ-2 Depression Total Score: 0 11/18/19 22 12:17 PM EDT documented as of this encounter Care Teams Agricultural Commodities Inspector Relationship Specialty Start Date End Date Dede Richard MD [facility] [place] [address] PCP - General Internal Medicine 06/22/19 documented as of this encounter Additional Source Comments The information contained in this document represents components of the legal health record. It is not the complete legal health record.[facility]
--- OUTSIDE RECORDS SUMMARY | 2025-05-02 13:52 | XMS_ITS | Clinical Summary ---
Author Organization [facility] Address [address] [place] [address] Care Team Providers Care Director Of Corporate Strategy Name Role Phone Stuart Timmons Primary Care [...] Apply to affected area 4 Active omega 4-uql-yqg-fish oil (Fish OiL) 1,200 (144-216) mg capsule [...] (2 of 2 - PCV) 04/11/2021 04/11/2020 Alcohol/Substance Use Screening 08/01/2024 Depression Screening and Follow-Up 08/01/2024 Social Drivers of Health Sole ual Screening 08/01/2024 COVID-19 Vaccine (2024- season) 2025 08/04/2021, 10/09/2020, 09/12/2020 Influenza Vaccine (#1) 2025 05/16/2024, 2019 RSV Vaccine (60+ years old a nd patients) (1 - 1-dose 75+ series) 2051 Insurance [employer] Care Teams Director Of Corporate Strategy Relationship Specialty Start Date End Date Stuart Timmons [facility] [place], [place] [phone] PCP - General 10/18/23
--- OUTSIDE RECORDS SUMMARY | 2025-05-02 13:52 | XMS_ITS | Patient Health Record ---
Author Organization [facility] Address [address] [place] [address] Care Team Providers Care Metal Fabricator Apprentice Name Role Phone GUILLAUME RAY Primary Care Provider Parker Carrillo Jr Unavailable Reason For Referral No Information Medications Medication SIG (Take, Route, Frequency, Duration) Notes Start Date End Date Status Spironolactone 100 MG 1 1/2 tablet Orall y as directed Active Gabapentin 600 MG 2 tablet Orally Thre e times a day Active Zolpidem Tartrate 12.5mg 1 tablet at bed time as needed Orally Once a day Active Hyoscyamine Sulfate 0.125 TAKE 1 TABLET BY MOUTH FOUR TIMES DAILY NEEDED BEFORE MEALS for 30 Active Diphenoxylate-Atropine 2.5-0.025 MG 1 tablet as needed Orally Four times a day for as needed 07/09/2013 Not-Taking Colyte with Flavor Packs 240 GM As directed Orally Over the specified time. for 1 day(s) 11/08/2018 Active Atorvastatin Calcium 10 MG 1 tablet Oral Once a day Active Lomotil 2.5-0.025 MG 1 tablet as needed for diarrhea Orally Four times a day for 30 days 11/08/2018 Active Hyoscyamine Sulfate 0.125 MG 1 tablet before meals as needed Orally QID/PRN before meals for 30 days 01/05/2013 Not-Taking Omeprazole 20 MG TAKE 1 TABLET BY IRVING TH ONCE A DAY for 30 Active Nabumetone 500 MG TK 1 T PO BID Oral f or 30 Active Ttdym-5-vfak Ethyl Esters 1 GM 2 capsules Orally Twice a day Active Ventolin HFA 108 (90 Base) MCG/ACT INL 2 PUFFS PO Q 4 H PRN Inhalation prn Active Immunizations Vaccine Route Administration Date Status Comme nts Influenza Unknown 11/08/2018 Refused Social History Alcohol Screen Question Answer Notes Did you have a drink containing alcohol in the p ast year? No Points 0 Interpretation Negative Problems Problem Type SNOMED Code ICD Code Onset Dates Problem Status W/U Status Risk Notes Problem 23902338 Rectal bleeding (K62.5) Active confirmed Problem 814535019 Irritable bowel syndrome with diarrhea (K58.0) Active confirmed Problem 753362131 Gastroesophageal reflux disease without esophagitis (K21.9) Active confirmed Plan Of Treatment Future Test Test Name Order Date COLONOSCOPY 11/08/2018 Insurance Providers Payer Name Payer Address Payer Phone Subscriber Number Group Number Insured Name Patient Relationship to Insured Coverage Start Date Coverage End Date [facility] [address] [address] [place], [place] [id number] BENTLEY CHARLES Self - patient is the insured MEDICAID OF [facility] [address] [place] [address] [id number] BENTLEY CHARLES Self - patient is the insured Medical (General) History Medical History History ICD Code anxiety polycystic ovary syndrome fibromyalgia insomnia Denies SC,DM,CVA,renal disease asthma Surgical History Surgery Date(Month/Year) section x4
--- OUTSIDE RECORDS SUMMARY | 2025-05-02 13:52 | XMS_ITS | Clinical Summary ---
Author Organization [facility] Address [address] [facility] [address] [place] [address] Phone Care Team Providers Care Cyber Workforce Developer And Manager Name Role Phone Dede Richard MD Primary Care Provider [phone] Allergies No known active allergies Medications gabapentin (NEURONTIN) 100 MG capsule Take 100 mg by mouth 3 (three) times a day. Active spironolactone (ALDACTONE) 50 MG tablet Take 50 mg by mouth daily. 2 tablets in the morning (100mg) and 1 in the afternoon (50mg) Active atorvastatin (LIPITOR) 10 MG tablet Take 10 mg by mouth daily. Active LORazepam (ATIVAN) 1 MG tablet Take 1 mg by mouth every 6 (six) hours as needed for anxiety. Active cholecalciferol , vitamin D3, (VITAMIN D3) 1,000 unit capsule Take 1,000 Units by mouth daily. Active Social History Tobacco Use Types Packs/Day Years Used Date Smoking Tobacco: Former Cigarettes - 1994 Smokeless Tobacco: Never Comments:3 cigarettes a day Education Answer Date Recorded Are you interested in more education? Not on tariq e 11/26/2022 Are you concerned about learning? Not on file 11/26/2022 No 11/26/2022 No 11/26/2022 Digital Access Answer Date Recorded No 12/25/2022 No 12/25/2022 No 12/25/2022 Reliable internet access at home? Not on file 12/25/2022 Device with a working camera? Not on file Comments Unknown Sex and Gender Information Value Date Recorded Sex Assigned at Female 05/30/2019 11:22 AM EDT Legal Sex Female 11:10 AM EDT Gender Identity Female 05/30/2019 11:22 AM EDT Sexual Orientation Straight 05/30/2019 11 :22 AM EDT Last Filed Vital Signs Vital Sign Reading Time Taken Comments Blood Pressure 128/80 03/09/2022 7:57 AM EDT Pulse 71 03/09/2022 7:57 AM EDT Temperature 35.9 C (96.7 F) 03/09/2022 7:57 AM EDT Respiratory Rate 16 03/09/2022 7:57 AM EDT Oxygen Saturation 100% 03/09/2022 7:57 AM EDT Inhaled Oxygen Concentration - - Weight 65.4 kg (144 lb 1.6 oz) 03/09/2022 7:57 A M EDT Height 152.4 cm (5') 03/09/2022 7:57 AM EDT Body Mass Index 28.14 03/09/2022 7:57 AM EDT Plan of Treatment Health Maintenance Due Date Last Done Comments Adult Td,Tdap Booster 1976 LIPID PANEL 1976 SMOKING Hx and SMOKELESS TOBACCO SCREENING 1989 HEPATITIS C SCREENING 1994 HIV ONE-TIME SCREENING (18-6 5 YEARS) 1994 PAP SMEAR 1997 MAMMOGRAM 2016 COLOGUARD 2021 COLONOSCOPY 2021 COLORECTAL CANCER SCREENING 2021 FIT TEST 2021 FOBT 2021 SIGMOIDOSCOPY 2021 VIRTUAL COLONOSCOPY 2021 DEPRESSION SCREENING 03/09/2023 03/09/2022 POTASSIUM LEVEL 03/09/2023 03/09/2022 INFLUENZA VACCINE (#1) 2025 04/11/2020 COVID-19 VACCINE ( - 2024-2 6 season) 2025 08/04/2021, 10/09/2020, 09/12/2020 PNEUMOCOCCAL VACCINES (0-49 years) Aged Out 04/11/2020 No longer eligible b ased on patient's age to complete this topic HEPATITIS A VACCINES Aged Out No long er eligible based on patient's age to complete this topic HIB VACCINES Aged Out No longer eligi ble based on patient's age to complete this topic MENINGOCOCCAL VACCINES (ACWY) Aged Out No longer eligible based on patient's age to complete this topic MENINGOCOCCAL VACCINES (B) Aged Out N o longer eligible based on patient's age to complete this topic Medical Devices Not on file Procedures Procedure Name Priority Date/Time Associated Diagnosis Comments BASIC METABOLIC PANEL Routine 03/09/2022 8:50 AM EDT 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 from Last 3 Months or Most Recently Relevant to Health Maintenance Results * (ABNORMAL) Basic metabolic panel (03/09/2022 8:50 AM EDT) SODIUM 142 136 - 145 mmol/L [facility] POTASSIUM 4.2 3.4 - 5.1 mmol/L [facility] CHLORIDE 104 98 - 107 mmol/L [facility] CO2 23 22 - 31 mmol/L [facility] BUN 9 6 - 23 mg/dL [facility] CREATININE 0.73 0.50 - 1.20 mg/dL [facility] GLUCOSE 112(H) 70 - 100 mg/dL [facility] CALCIUM 9.2 8.8 - 10.7 mg/dL [facility] EGFR 103 >59 mL/min/1.7 3m2 [facility] Comment:Estimated glomerular filtration rate calculated using the CKD-EPI refit equation. ANION GAP 15 7 - 17 mmol/L [facility] 03/09/2022 8:50 AM EDT 03/09/2022 9:04 AM EDT Jeffrey Christiansen MD LAB BLOOD ORDERABLES Final R esult [facility] [address] [place] [id number] from Last 3 Months or Most Recently Relevant to Health Maintenance Insurance ACO ACO ACO [employer] [place] [place] [address] ACO Care Teams Cyber Workforce Developer And Manager Relationship Specialty Start Date End Date Dede Richard MD [employer] [facility] [address] PCP - General Internal Medicine 06/22/19 Additional Source Comments The information contained in this document represents components of the legal health record. It is not the complete legal health record.[facility]
--- OUTSIDE RECORDS SUMMARY | 2025-05-02 13:52 | XMS_ITS | Encounter Summary ---
Author Organization [facility] Address [address] [facility] [address] [place] [address] Phone Care Team Providers Care Agricultural Education Teacher Name Role Phone Dede Richard MD Primary Care Provider [phone] Encounter Details Date Type Department Care Team (Late st Contact Info) Description 07/01/2022 Procedure Pass [facility] [place] [address] [place] [address] Social History Tobacco Use Types Packs/Day Years [...] Noted Time PHQ-2 Depression Total Score: 0 03/09/20 22 7:57 AM EDT documented as of this encounter Care Teams Agricultural Education Teacher Relationship Specialty Start Date End Date Dede Richard MD [address] [facility] [place] [address] PCP - General Internal Medicine 06/22/19 documented as of this encounter Additional Source Comments The information contained in this document represents components of the legal health record. It is not the complete legal health record.[facility]
--- OUTSIDE RECORDS SUMMARY | 2025-05-02 13:52 | XMS_ITS | Encounter Summary ---
Author Organization Formerly [facility] Address [address] [facility] [address] [place] [address] Phone Care Team Providers Care Under Baster Name Role Phone Stuart Timmons NP Primary Care Provider + Dede Richard MD Primary Care Provider Reason for Referral * MRI/CAT Scan - Closed Specialty Diagnoses / Procedures Referred By Contac t Referred To Contact Procedures CT Chest Outside (No Interpretation) Kathie Mccarty MD Phone: tel: fax: mailto:[email or web address] Referral ID Status Reason Start Date Expiration Date Visits Re quested Visits Authorized [id number] Closed 06/11/2019 06/10/2020 1 1 * MRI/CAT Scan - Closed Specialty Diagnoses / Procedures Referred By Contac t Referred To Contact Procedures CT Abdomen/Pelvis Outside (No Interpretation) Kathie Mccarty MD Phone: tel: fax: mailto:[email or web address] Referral ID Status Reason Start Date Expiration Date Visits Re quested Visits Authorized [id number] Closed 06/07/2019 06/06/2020 1 1 * MRI/CAT Scan - Closed Specialty Diagnoses / Procedures Referred By Contac t Referred To Contact Procedures CT Abdomen/Pelvis Outside (No Interpretation) Kathie Mccarty MD Phone: tel: fax: mailto:[email or web address] Referral ID Status Reason Start Date Expiration Date Visits Re quested Visits Authorized [id number] Closed 06/07/2019 06/06/2020 1 1 Encounter Details Date Type Department Care Team (Late st Contact Info) Description 06/07/2019 Transcribe Orders [facility] [address] [address] [email or web address] Social History Tobacco Use Types Packs/Day Years Used Date Smoking Tobacco: Never Assessed Comments Unknown Sex and Gender Information Value Date Recorded Sex Assigned at Female 05/30/2019 11:22 AM EDT Legal Sex Female 11:10 AM EDT Gender Identity Female 05/30/2019 11:22 AM EDT Sexual Orientation Straight 05/30/2019 11 :22 AM EDT documented as of this encounter Plan of Treatment Not on file documented as of this encounter Results * CT Chest Outside (No Interpretation) (06/11/2019 10:26 AM EST) N[facility]ative [facility] - 06/11[facility] 10:26 AM EST This study is for PACS storage only and not for interpretation. Kathie Mccarty MD IMG OUTSIDE IMAGING W/ OUT INTERPRETATION Final Result [facility] * US Pelvis Outside (No Interpretation) (06/07/2019 9:05 AM EST) Narrative [facility] - 06/07/2019 9:05 AM EST This study is for PACS storage only and not for interpretation. us Kathie Mccarty MD IMG OUTSIDE IMAGING W/ OUT INTERPRETATION Final Result [facility] * US Pelvis Outside (No Interpretation) (06/07/2019 9:05 AM EST) Narrative [facility] - 06/07/2019 9:05 AM EST This study is for PACS storage only and not for interpretation. us Kathie Mccarty MD IMG OUTSIDE IMAGING W/ OUT INTERPRETATION Final Result [facility] * CT Abdomen/Pelvis Outside (No Interpretation) (06/07/2019 9:05 AM EST) Narrative [facility] - 06/07/2019 9:05 AM EST This study is for PACS storage only and not for interpretation. us Kathie Mccarty MD IMG OUTSIDE IMAGING W/ OUT INTERPRETATION Final Result * CT Abdomen/Pelvis Outside (No Interpretation) (06/07/2019 9:05 AM EST) Narrative [facility] - 06/07/2019 9:05 AM EST This study is for PACS storage only and not for interpretation. Result Deni Mccarty MD IMG OUTSIDE IMAGING W/ OUT INTERPRETATION Final Result documented in this encounter Visit Diagnoses Not on filedocumented in this encounter Care Teams Under Baster Relationship Specialty Start Date End Date Stuart Timmons NP [facility] [place] [address] PCP - General Family Medicine 05/30/19 06/21/19 Dede Richard MD [address] [place] [address] [place] [address] PCP - General Internal Medicine 06/22/19 documented as of this encounter Additional Source Comments The information contained in this document represents components of the legal health record. It is not the complete legal health record.[facility]
--- OUTSIDE RECORDS SUMMARY | 2025-05-02 13:53 | XMS_ITS | Clinical Summary ---
Author Organization [facility] Address [address] [place] [address] Care Team Providers Care Ict Programmer Name Role Phone Unavailable Primary Care Provider [...] COVID-19 Vaccine ( - 2023-2 5 season) 2025 Influenza (#1) 2025 Zoster (Shingrix) (1 of 2) 2026 Hepatitis C Screening Completed 11/02/2013 HPV Vaccine (No Doses Required) Completed Hep A Aged Out No longer eligi [...] complete this topic Procedures * Due to [place] Mashwork law, this organization might not be sharing negative HIV tests. Procedure Name Priority Date/Time Associated Diagnosis Comments HEPATITIS C AB WITH REFLEX TO RNA PCR, SERUM Routine 11/02/2013 12:12 PM EDT from Last 3 Months or Most Recently Relevant to Health Maintenance Results * Due to [place] Mashwork law, this organization might not be sharing negative HIV tests. * HEPATITIS C ANTIBODY, SERUM (11/02/2013 12:12 PM EDT) Hepatitis C virus Ab NON-REACTI VE NON-REACT SUSAN [facility] Comment:{HEPATITIS C ANTIBOD Y {[id number]) Hepatitis C virus Ab Signal/Cutoff 0.03 <1.00 [facility] Comment:{SIGNAL TO CUT-OFF { [id number]) 11/02/2013 12:1 2 PM EDT 11/03/2013 4:13 AM EDT us Comfort De La Garza NP LABORATORY Final Result [facility] [address] [place] [address] from Last 3 Months or Most Recently Relevant to Health Maintenance
--- NOTE | 2025-05-27 11:29 | HO.ANESPROP2 ---
Documented by User: Kathleen Fried NP 05/28/25 08:59 HPI - Anesthesia Eval Consult details Narrative: 50 yr old female for colonoscopy Cystic bullous disease of lung -Saw PCP on 05/07/25, reported the following: reports experiencing chest tightness located in the anterior chest beneath the pectorals, extending to the epigastric region, accompanied by shortness of breath, diaphoresis, and occasional syncope. These symptoms have persisted for years, and there is a suspicion of a connection to the cystic formations in her lungs, although specialists have not confirmed this association. Was advised to follow up with her cystic lung specialist in [facility] Active Problems Active Problems: All Active Problems Pineal gland cyst (Acute) Hair loss (Acute) Left hand pain (Acute) Swelling of left middle finger (Acute) Dermatitis (Acute) Encounter for routine adult physical exam with abnormal findings (Acute) Itching (Acute) Enlarged uterus (Acute) Well woman exam (Acute) Atrophic pancreas (Acute) Elevated liver enzymes (Acute) Paresthesias (Acute) Screening for cervical cancer (Acute) Cyst of brain (Acute) Restless leg syndrome (Acute) Thoracic back pain (Acute) Chest pressure (Acute) Sleep apnea (Acute) WAITE (dyspnea on exertion) (Acute) Vitamin B12 deficiency (Acute) Vitamin D deficiency (Acute) Abdominal bloating (Acute) Pre-op examination (Acute) Lumbar spondylosis (Acute) Screening for colon cancer (Acute) NEWELL (nonalcoholic steatohepatitis) (Acute) [place] syndrome (Acute) Dyspnea on exertion (Acute) Cystic-bullous disease of lung (Acute) Edema of both feet (Acute) Serum calcium elevated (Acute) Physical exam (Acute) Headache (Acute) Dizziness (Acute) Fibromyalgia (Acute) Back pain (Acute) SHUN positive (Acute) Arthralgia (Acute) Myalgia (Acute) Sinusitis (Acute) Cervical neck pain with evidence of disc disease (Acute) Encounter for blood typing (Acute) Pain of right scapula (Acute) Fall (Acute) Past Medical History Medical History Atrophic pancreas Elevated bilirubin Cystic-bullous disease of lung Osteoarthritis Lumbar spondylosis Cervical neck pain with evidence of disc disease Spondylosis of 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 Paternal Grandfather No problems noted. Paternal Grandmother No problems noted. Brother No problems noted. Sister No problems noted. Surgical History Surgical History History of lung biopsy History of endoscopy History of laparoscopy History of tubal ligation History of section Social History Social History Housing: House Alcohol intake: never Patient Tobacco Use Status: Former Tobacco user Tobacco use type: Cigarette e-Cigarette/Vaping Use: Never Used Second Hand Smoke Exposure: No Use of substances other than those prescribed or required for medical reasons: No Are you DNR?: No Advance Directives: No Advance Directives Information Provided: Yes service: No Current occupational status: disabled (temp disabled ) Current occupational exposures/hazards: No Cognitive needs: No Hearing needs: No Vision needs: Yes Meds Allergies Allergy/AdvReac Type Severity Reaction Status Date / Time lactose (LACTOSE) Allergy Unknown DIARRHEA Verified 05/29/25 11:26 milk (MILK) AdvReac Unknown DIARRHEA Verified 05/29/25 11:26 Home Medications ?Medication ?Instructions ?Recorded ?Confirmed ?Last Taken ?Type quetiapine 100 mg tablet 100 mg PO BEDTIME 08/24/22 05/29/25 Unknown History quetiapine 25 mg tablet 25 mg PO BEDTIME 08/24/22 05/29/25 Unknown History clonazepam 1 mg tablet 1 mg PO BID PRN Anxiety 04/19/23 05/29/25 Unknown History escitalopram oxalate 20 mg tablet 20 mg PO DAILY 04/19/23 05/29/25 Unknown History Documented by User: Eva Adams MD 05/29/25 11:57 [facility] Past Medical History Medical History Atrophic pancreas Elevated bilirubin Cystic-bullous disease of lung Osteoarthritis Lumbar spondylosis Cervical neck pain with evidence of disc disease Spondylosis of 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 Paternal Grandfather No problems noted. Paternal Grandmother No problems noted. Brother No problems noted. Sister No problems noted. Surgical History Surgical History History of lung biopsy History of endoscopy History of laparoscopy History of tubal ligation History of section History of Problems with Anesthesia: No Social History Social History Housing: House Alcohol intake: never Patient Tobacco Use Status: Former Tobacco user Tobacco use type: Cigarette e-Cigarette/Vaping Use: Never Used Second Hand Smoke Exposure: No Use of substances other than those prescribed or required for medical reasons: No Are you DNR?: No Advance Directives: No Advance Directives Information Provided: Yes service: No Current occupational status: disabled (temp disabled ) Current occupational exposures/hazards: No Cognitive needs: No Hearing needs: No Vision needs: Yes Meds Allergies Allergy/AdvReac Type Severity Reaction Status Date / Time lactose (LACTOSE) Allergy Unknown DIARRHEA Verified 05/29/25 11:26 milk (MILK) AdvReac Unknown DIARRHEA Verified 05/29/25 11:26 Home Medications ?Medication ?Instructions ?Recorded ?Confirmed ?Last Taken ?Type quetiapine 100 mg tablet 100 mg PO BEDTIME 08/24/22 05/29/25 Unknown History quetiapine 25 mg tablet 25 mg PO BEDTIME 08/24/22 05/29/25 Unknown History clonazepam 1 mg tablet 1 mg PO BID PRN Anxiety 04/19/23 05/29/25 Unknown History escitalopram oxalate 20 mg tablet 20 mg PO DAILY 04/19/23 05/29/25 Unknown History Exam Airway Mallampati Class: II (invisalign in place) TM Dist: >3cm Neck ROM: Full Heart: RRR Lungs: CTA Assessment and Plan Assessment Anesthesia Assessment: Anesthesia Plan Discussed and Chart Reviewed Final Anesthetic Review History of Problems with Anesthesia: No NPO: Yes ASA Class: II Final Preanesthetic Review: Meds/Allgs Chart Reviewed, Consent Obtained/Reviewed and Anes Risks/Benef Reviewed Patient Risk: Low Procedure Risk: Low Anesthetic Plan Anesthetic Plan: MAC: Disposition: Standard PACU
[2025-05-29 11:22] VITALS: BMI 32.0
[2025-05-29 11:48] VITALS: BP 123/68; PULSE 78; RESP 16; TEMP 36.6; O2SAT 97
--- NOTE | 2025-05-29 12:10 | MHC.SHP ---
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 Depression Dyslipidemia Elevated bilirubin Fall Fibromyalgia High triglycerides IBS (irritable bowel syndrome) Lumbar spondylosis Lymphangioleiomyomatosis Migraine Osteoarthritis Pain) History of Previous Operations: Relevant previous surgery/procedure and date(s) ( History of section History of endoscopy History of laparoscopy History of lung biopsy History of tubal ligation) Allergies: Allergies Allergy/AdvReac Type Severity Reaction Status Date / Time lactose (LACTOSE) Allergy Unknown DIARRHEA Verified 05/29/25 11:26 milk (MILK) AdvReac Unknown DIARRHEA Verified 05/29/25 11:26 Review of Systems Sugical H&P ROS: Negative: Constitution, Cardiovascular, Respiratory, Neurological, Psychiatric, Hem-Onc, Allergic/Immunologic, Gastrointestinal, Genitourinary, Musculoskeletal, Integumentary, Endocrine and Eyes/Ears/Nose/Throat Exam Surgical H&P Exam: Normal: HEENT, Normal: Heart, Normal: Lungs, Normal: Extremities, Normal: Abdomen, Normal: Skin and Normal: Neurological Plan Diagnosis/Plan: Unchanged I have reviewed the history and physical and performed a pertinent physical examination on my patient. No changes have occurred unless specified. Time Spent With Patient Time: Total time managing care of this patient today ____ minutes.
[2025-05-29] MEDS: Lactated Ringers 1,000 ML 100 ML IVCONT (12:19)
--- NOTE | 2025-05-29 12:45 | P.OPN-COLO_ITS ---
Colonoscopy Operative Note Operative Note Date of Service: 05/29/25 Narrative: Operative Information Procedure Description: Colonoscopy Indication: Screening, FH of CRC Anesthesia: MAC COLONOSCOPY Instrument: Olympus variable stiffness pediatric scope 190L Colonoscopy Monitoring: Vital signs and clinical assessment, continuous EKG monitoring, Pulse oximetry, Carbon Dioxide monitoring and blood pressure monitoring were done throughout the procedure. Colon withdrawal time was 12 minutes. Procedure: The patient was placed in the left lateral decubitis position and pre-procedure medications were administered. After a digital rectal examination of the ano-rectum, the video colonoscope was inserted into the rectum and advanced through the colon to the cecum/TI. The colonoscope was slowly withdrawn in a retrograde panoramic fashion and the colon mucosa was carefully examined including a retroflexed view of the rectum. Findings and interventions are described below. Procedure Difficulty: easy Findings: Terminal Ileum-normal Cecum:normal right sided retroflexion- normal Ascending Colon: normal Transverse Colon -normal Descending Colon:normal Sigmoid Colon: normal Rectum: Retroflexion with small internal hemorrhoids seen, grade I Anorectum - normal Intervention: none Colon preparation: [place] Bowel Preparation Scale Right colon; 2 Transverse colon: 2 Left colon; 2 (0 = Unprepared colon segment with mucosa not seen due to solid stool that can not be cleared. 1 = Portion of mucosa of the colon segment seen, but other areas of the colon segment not well seen due to staining, residual stool and/or opaque liquid. 2 = Minor amount of residual staining, small fragments of stool and/or opaque liquid, but mucosa of colon segment seen well. 3 = Entire mucosa of colon segment seen well with no residual staining, small fragments of stool or opaque liquid) Impression and Post Procedure Diagnosis: internal hemorrhoids Plan: High fiber diet leaflet Avoid straining at stool, epsom salts and sitz bath, anusol supps or cream Repeat Colonoscopy in 5 years due to FH or earlier if clinically indicated Above findings were reviewed with the patient and relevant handouts were provided if indicated.
[2025-05-29 12:51] VITALS: BP 104/59; PULSE 69; RESP 16; TEMP 36.6; O2SAT 97
[2025-05-29 13:05] VITALS: BP 128/63; PULSE 65; RESP 16; O2SAT 98
[2025-05-29 13:20] VITALS: BP 128/62; PULSE 66; RESP 16; TEMP 36.6; O2SAT 98
== END 2025-05-29 14:10 | disposition home or self-care (01) ==
PROVIDERS: PCP Nurse Practitioner Family; Visit Provider Internal Medicine Gastroenterology
PROC: 0DJD8ZZ Inspection of Lower Intestinal Tract, Via Natural or Artificial Opening Endoscopic (ICD-10-PCS; CPT 45378; principal; 2025-05-29 13:10)
DX: Z12.11 Encounter for screening for malignant neoplasm of colon (principal); R14.0 Abdominal distension (gaseous); Z80.0 Family history of malignant neoplasm of digestive organs; E80.4 Gilbert syndrome; K75.81 Nonalcoholic steatohepatitis (NASH); K64.0 First degree hemorrhoids
CPT/HCPCS: 45378; J2003; J2704

== ENCOUNTER → 2025-05-29 09:38 | Outpatient (BNV) | payer OTHER, SELFPAY | PROVIDERS: PCP Nurse Practitioner Family; Visit Provider Internal Medicine Gastroenterology | DX: Z12.11 Encounter for screening for malignant neoplasm of colon (principal); K64.0 First degree hemorrhoids; R14.0 Abdominal distension (gaseous) | CPT/HCPCS: 45378 ==

== ENCOUNTER 2025-05-30 11:44 | Outpatient (REF) | payer OTHER, SELFPAY ==
--- OUTSIDE RECORDS SUMMARY | 2025-05-30 14:44 | XMS_ITS | Encounter Summary ---
Author Organization [facility] Address [address] [facility] [address] [facility] [address] [place] [phone] Phone Care Team Providers Care Pastry Wrapper Name Role Phone Dede Richard MD Primary Care Provider [phone] Encounter Details Date Type Department Care Team (Late st Contact Info) Description 10/01/2021 Procedure Pass [facility] [address] [place] [address] Social History Tobacco Use Types Packs/Day Years [...] documented as of this encounter Care Teams Pastry Wrapper Relationship Specialty Start Date End Date Dede Richard MD [facility] [place] [address] PCP - General Internal Medicine 06/22/19 documented as of this encounter Additional Source Comments The information contained in this document represents components of the legal health record. It is not the complete legal health record.[facility]
--- OUTSIDE RECORDS SUMMARY | 2025-05-30 14:44 | XMS_ITS | Patient Health Record ---
Author Organization [facility] Address [address] [place] [address] Care Team Providers Care Sales Performance Manager Name Role Phone GUILLAUME RAY Primary Care Provider Parker Carrillo Jr Unavailable [phone] Reason For Referral No Information Medications Medication [...] BY MOUTH FOUR TIMES DAILY NEEDED BEFORE MEALS; Duration: 30 Active Diphenoxylate-Atropine 2.5-0.025 MG 1 tablet as needed Orally Four times a day; Duration: as needed 07/09/2013 Not-Taking Colyte with Flavor Packs 240 GM As directed Orally Over the specified time.; Duration: 1 day(s) 11/08/2018 Active Atorvastatin Calcium 10 MG 1 tablet Oral Once a day Active Lomotil 2.5-0.025 MG 1 tablet as needed for diarrhea Orally Four times a day; Duration: 30 days 11/08/2018 Active Hyoscyamine Sulfate 0.125 MG 1 tablet before meals as needed Orally QID/PRN before meals; Duration: 30 days 01/05/2013 Not-Taking Omeprazole 20 MG TAKE 1 TABLET BY IRVING TH ONCE A DAY; Duration: 30 Active Nabumetone 500 MG TK 1 T PO BID Oral; Duration: 30 Active [id number] Ethyl Esters 1 GM 2 capsules Orally [...] Problem Status W/U Status Risk Notes Problem Rectal bleeding (34431664) Rectal bleeding (K62.5) Active confirmed Problem Irritable bowel syndrome with diarrhea (004598159) Irritable bowel syndrome with diarrhea (K58.0) Active confirmed Problem Gastroesophageal reflux disease without esophagitis (172220349) Gastroesophageal reflux disease without esophagitis (K21.9) Active confirmed Plan Of Treatment Future Test Test Name Order Date COLONOSCOPY 11/08/2018 Insurance Providers Payer Name Payer Address Payer Phone Subscriber Number Group Number Insured Name Patient Relationship to Insured Coverage Start Date Coverage End Date [facility] [address] [address] [place], [place] [id number] BENTLEY CHARLES Self - patient is the insured MEDICAID OF [facility] [address] [place] [address] [id number] BENTLEY CHARLES Self - patient is the insured Medical (General) History Medical History History ICD Code anxiety polycystic ovary syndrome fibromyalgia insomnia Denies UT,DM,CVA,renal disease asthma Surgical History Surgery Date(Month/Year) section x4
--- OUTSIDE RECORDS SUMMARY | 2025-05-30 14:44 | XMS_ITS | Encounter Summary ---
Author Organization [facility] Address [address] [facility] [address] [place] [address] Phone Care Team Providers Care Honey Liquefier Name Role Phone Stuart Timmons NP Primary Care Provider + Dede Richard MD Primary Care Provider [phone] Reason for Referral * MRI/CAT Scan - Closed Specialty Diagnoses / Procedures Referred By Contac t Referred To Contact Procedures CT Chest Outside (No Interpretation) Kathie Mccarty MD Phone: tel: fax: mailto:[email or web address] Referral ID Status Reason Start Date Expiration Date Visits Re quested Visits Authorized [id number] Closed 06/11/2019 06/10/2020 1 1 * MRI/CAT Scan - Closed Specialty Diagnoses / Procedures Referred By Contac t Referred To Contact Procedures CT Abdomen/Pelvis Outside (No Interpretation) Kathie Mccarty MD Phone: tel: fax: mailto:[email or web address] Referral ID Status Reason Start Date Expiration Date Visits Re quested Visits Authorized [id number] Closed 06/07/2019 06/06/2020 1 1 * MRI/CAT Scan - Closed Specialty Diagnoses / Procedures Referred By Contac t Referred To Contact Procedures CT Abdomen/Pelvis Outside (No Interpretation) Kathie Mccarty MD Phone: tel: fax: mailto:[email or web address] Referral ID Status Reason Start Date Expiration Date Visits Re quested Visits Authorized [id number] Closed 06/07/2019 06/06/2020 1 1 Encounter Details Date Type Department Care Team (Late st Contact Info) Description 06/07/2019 Transcribe Orders [facility] [address] [address] Rajiv Sumner [address] [place] [phone] [email or web address] Social History Tobacco Use Types Packs/Day [...] (No Interpretation) (06/11/2019 10:26 AM EST) Narrative [facility] - 06/11/2019 10:26 AM EST This study is for PACS storage only and not for interpretation. Kathie Mccarty MD IMG OUTSIDE IMAGING W/ OUT INTERPRETATION Final Result [facility] * Pelvis Outside (No Interpretation) (06/07/2019 9:05 AM EST) [facility]ative [facility] - 06/07/2019 9:05 AM EST This study [...] OUT INTERPRETATION Final Result Performing Organization Address City/[facility] Co de Phone Number [facility] * CT [...] on filedocumented in this encounter Care Teams Honey Liquefier Relationship Specialty Start Date End Date Stuart Timmons NP [address] [place] [place] [address] PCP - General Family Medicine 05/30/19 06/21/19 Dede Richard MD [address] [place] [address] PCP - General Internal Medicine 06/22/19 documented as of this encounter Additional Source Comments The information contained in this document represents components of the legal health record. It is not the complete legal health record.[facility]
--- OUTSIDE RECORDS SUMMARY | 2025-05-30 14:44 | XMS_ITS | Clinical Summary ---
Author Organization [facility] Address [address] [place] [address] Care Team Providers Care Aix System Administrator Name Role Phone Stuart Timmons Primary Care [...] Apply to affected area 4 Active omega 5-wjh-qjn-fish oil (Fish OiL) 1,200 (144-216) mg capsule [...] series) 2051 Insurance [employer] Care Teams Aix System Administrator Relationship Specialty Start Date End Date Stuart Timmons [facility] [place], [place] [id number] PCP - General 10/18/23
--- OUTSIDE RECORDS SUMMARY | 2025-05-30 14:44 | XMS_ITS | Clinical Summary ---
Author Organization [facility] Address [address] [facility] [address] [place] [phone] Phone Care Team Providers Care In Processing Instructor Name Role Phone Dede Richard MD Primary Care Provider [phone] Allergies No known active allergies Medications gabapentin [...] EDT) SODIUM 142 136 - 145 mmol/L [facility] POTASSIUM 4.2 3.4 - 5.1 mmol/L [facility] CHLORIDE 104 98 - 107 mmol/L [facility] CO2 23 22 - 31 mmol/L [facility] BUN 9 6 - 23 mg/dL [facility] CREATININE 0.73 0.50 - 1.20 mg/dL [facility] GLUCOSE 112(H) 70 - 100 mg/dL [facility] CALCIUM 9.2 8.8 - 10.7 mg/dL [facility] EGFR 103 >59 mL/min/1.7 3m2 [facility] Comment:Estimated glomerular filtration rate calculated using the CKD-EPI refit equation. ANION GAP 15 7 - 17 mmol/L [facility] 03/09/2022 8:50 AM EDT 03/09/2022 9:04 AM EDT Jeffrey Christiansen MD LAB BLOOD ORDERABLES Final R esult [facility] [address] [place] [phone] from Last 3 Months or Most Recently Relevant to Health Maintenance Insurance ACO ACO ACO ACO ACO ACO [place] [address] [address] ACO Care Teams In Processing Instructor Relationship Specialty Start Date End Date Dede Richard MD [facility] [place] [address] PCP - General Internal Medicine 06/22/19 Additional Source Comments The information contained in this document represents components of the legal health record. It is not the complete legal health record.[facility]
--- OUTSIDE RECORDS SUMMARY | 2025-05-30 14:44 | XMS_ITS | Clinical Summary ---
Author Organization [facility] Address [address] [place] [address] Care Team Providers Care Wedding Decorator Name Role Phone Unavailable Primary Care Provider [...] this topic Procedures * Due to [place] [employer] law, this organization might not be sharing negative HIV tests. Procedure Name Priority Date/Time Associated Diagnosis Comments HEPATITIS C AB WITH REFLEX TO RNA PCR, SERUM Routine 11/02/2013 12:12 PM EDT from Last 3 Months or Most Recently Relevant to Health Maintenance Results * Due to [place] [employer] law, this organization might not be sharing negative HIV tests. * HEPATITIS C ANTIBODY, SERUM (11/02/2013 12:12 PM EDT) Hepatitis C virus Ab NON-REACTI VE NON-REACT [facility]USAN [facility] Comment:{HEPATITIS C ANTIBOD Y {[id number]) Hepatitis C virus Ab Signal/Cutoff 0.03 <1.00 [facility] Comment:{SIGNAL TO CUT-OFF { [id number]) 11/02/2013 12:1 2 PM EDT 11/03/2013 4:13 AM EDT us Comfort De La Garza NP LABORATORY Final Result [facility] [address] [place] [address] from Last 3 Months or Most Recently Relevant to Health Maintenance
--- OUTSIDE RECORDS SUMMARY | 2025-05-30 14:44 | XMS_ITS | Encounter Summary ---
Author Organization [facility] Address [address] [facility] [address] [place] [address] Phone Care Team Providers Care Networking Administrator Name Role Phone Dede Richard MD Primary Care Provider [phone] Encounter Details Date Type Department Care Team (Late st Contact Info) Description 07/01/2022 Procedure Pass [facility] [place] [address] [place] [address] Social History Tobacco Use Types Packs/Day Years [...] documented as of this encounter Care Teams Networking Administrator Relationship Specialty Start Date End Date Dede Richard MD [address] [facility] [place] [address] PCP - General Internal Medicine 06/22/19 documented as of this encounter Additional Source Comments The information contained in this document represents components of the legal health record. It is not the complete legal health record.[facility]
== END 2025-05-30 11:45 | disposition home or self-care (01) ==
LOC: HO.MAMMO 11:44
PROVIDERS: PCP Nurse Practitioner Family; Visit Provider Nurse Practitioner Family
DX: Z12.31 Encounter for screening mammogram for malignant neoplasm of breast (principal)
CPT/HCPCS: 77063; 77067

== ENCOUNTER → 2025-05-30 11:45 | Outpatient (BNV) | payer OTHER, SELFPAY | PROVIDERS: PCP Nurse Practitioner Family; Visit Provider Radiology Body Imaging | DX: Z12.31 Encounter for screening mammogram for malignant neoplasm of breast (principal) | CPT/HCPCS: 77063; 77067 ==

== ENCOUNTER 2025-06-03 08:52 | Outpatient (REF) | payer OTHER, SELFPAY ==
--- OUTSIDE RECORDS SUMMARY | 2025-06-03 09:30 | XMS_ITS | Encounter Summary ---
Author Organization [facility] Address [address] [place] [address] Phone Care Team Providers Care Boom Stick Worker Name Role Phone Dede Richard MD Primary Care Provider [phone] Encounter Details Date Type Department Care Team (Late st Contact Info) Description 10/01/2021 Procedure Pass [facility] [address] [place] [address] Social History Tobacco Use Types Packs/Day Years [...] documented as of this encounter Care Teams Boom Stick Worker Relationship Specialty Start Date End Date Dede Richard MD [facility] [place] [address] PCP - General Internal Medicine 06/22/19 documented as of this encounter Additional Source Comments The information contained in this document represents components of the legal health record. It is not the complete legal health record.[facility]
--- OUTSIDE RECORDS SUMMARY | 2025-06-03 09:31 | XMS_ITS | Clinical Summary ---
Author Organization [facility] Address [address] [place] [address] Care Team Providers Care Builder'S Labourer Name Role Phone Stuart Timmons Primary Care [...] Apply to affected area 4 Active omega 4-dwz-wlb-fish oil (Fish OiL) 1,200 (144-216) mg capsule [...] series) 2051 Insurance [employer] Care Teams Builder'S Labourer Relationship Specialty Start Date End Date Stuart Timmons [facility] [place], [place] [id number] PCP - General 10/18/23
--- OUTSIDE RECORDS SUMMARY | 2025-06-03 09:31 | XMS_ITS | Encounter Summary ---
Author Organization [facility] Address [address] [place] [address] Phone Care Team Providers Care Senior Product Designer Name Role Phone Dede Richard MD Primary Care Provider [phone] Encounter Details Date Type Department Care Team (Late st Contact Info) Description 07/01/2022 Procedure Pass [facility], [place] [address] [place] [address] Social History Tobacco Use Types Packs/Day Years [...] documented as of this encounter Care Teams Senior Product Designer Relationship Specialty Start Date End Date Dede Richard MD [address] [facility] [place] [address] PCP - General Internal Medicine 06/22/19 documented as of this encounter Additional Source Comments The information contained in this document represents components of the legal health record. It is not the complete legal health record.[facility]
--- OUTSIDE RECORDS SUMMARY | 2025-06-03 09:31 | XMS_ITS | Patient Health Record ---
Author Organization [facility] Address [address] [place] [address] Care Team Providers Care Addiction Counselor Name Role Phone GUILLAUME RAY Primary Care [...] T PO BID Oral; Duration: 30 Active Iuyqn-8-pniz Ethyl Esters 1 GM 2 capsules Orally [...] W/U Status Risk Notes Problem Rectal bleeding (18613522) Rectal bleeding (K62.5) Active confirmed Problem Irritable bowel syndrome with diarrhea (794061538) Irritable bowel syndrome with diarrhea (K58.0) Active confirmed Problem Gastroesophageal reflux disease without esophagitis (476729520) Gastroesophageal reflux disease without esophagitis (K21.9) Active confirmed Plan Of Treatment Future Test Test Name Order Date COLONOSCOPY 11/08/2018 Insurance Providers Payer Name Payer Address Payer Phone Subscriber Number Group Number Insured Name Patient Relationship to Insured Coverage Start Date Coverage End Date [facility] [address] [address] [place], [place] [id number] BENTLEY CHARLES Self - patient is the insured MEDICAID OF [facility] [address] [place] [address] [id number] BENTLEY CHARLES Self - patient is the insured Medical (General) History Medical History History ICD Code anxiety polycystic ovary syndrome fibromyalgia insomnia Denies [place],DM,CVA,renal disease asthma Surgical History Surgery Date(Month/Year) section x4
--- OUTSIDE RECORDS SUMMARY | 2025-06-03 09:31 | XMS_ITS | Clinical Summary ---
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 from Last 3 Months or Most Recently Relevant to Health Maintenance Results * (ABNORMAL) Basic metabolic panel (03/09/2022 8:50 AM EDT) SODIUM 142 136 - 145 mmol/L [facility] POTASSIUM 4.2 3.4 - 5.1 mmol/L [facility] CHLORIDE 104 98 - 107 mmol/L [facility] CO2 23 22 - 31 mmol/L [facility] BUN 9 6 - 23 mg/dL [facility] CREATININE 0.73 0.50 - 1.20 mg/dL [facility] GLUCOSE 112(H) 70 - 100 mg/dL [facility] CALCIUM 9.2 8.8 - 10.7 mg/dL [facility] EGFR 103 >59 mL/min/1.7 3m2 [facility] Comment:Estimated glomerular filtration rate calculated using the CKD-EPI refit equation. ANION GAP 15 7 - 17 mmol/L [facility] 03/09/2022 8:50 AM EDT 03/09/2022 9:04 AM EDT us Jeffrey Christiansen MD LAB BLOOD BKR ORDERABLES Fin al Result [facility] [address] [place] [address] from Last 3 Months or Most Recently Relevant to Health Maintenance Insurance ACO ACO ACO [employer] [place] [address] [place] [address] [place] [address] [place] [address] ACO Care Teams Bag Filler Machine Operator Relationship Specialty Start Date End Date Dede Richard MD [facility] [place] [address] PCP - General Internal Medicine 06/22/19 Additional Source Comments The information contained in this document represents components of the legal health record. It is not the complete legal health record.[facility]
--- OUTSIDE RECORDS SUMMARY | 2025-06-03 09:31 | XMS_ITS | Clinical Summary ---
Author Organization [facility] Address [address] [place] [address] Care Team Providers Care Gummed Tape Press Operator Name Role Phone Unavailable Primary Care Provider [...] this topic Procedures * Due to [place] [employer] law, this organization might not be sharing negative HIV tests. Procedure Name Priority Date/Time Associated Diagnosis Comments HEPATITIS C AB WITH REFLEX TO RNA PCR, SERUM Routine 11/02/2013 12:12 PM EDT from Last 3 Months or Most Recently Relevant to Health Maintenance Results * Due to [place] [employer] law, this organization might not be sharing negative HIV tests. * HEPATITIS C ANTIBODY, SERUM (11/02/2013 12:12 PM EDT) Hepatitis C virus Ab NON-REACTI VE NON-REACT SUSAN [facility] Comment:{HEPATITIS C ANTIBOD Y {[id number]) Hepatitis C virus Ab Signal/Cutoff 0.03 <1.00 [facility] Comment:{SIGNAL TO CUT-OFF { [id number]) 11/02/2013 12:1 2 PM EDT 11/03/2013 4:13 AM EDT us Comfort De La Garza NP LABORATORY Final Result [facility] [address] [place] [address] from Last 3 Months or Most Recently Relevant to Health Maintenance
--- OUTSIDE RECORDS SUMMARY | 2025-06-03 09:31 | XMS_ITS | Encounter Summary ---
Author Organization [facility] Address [address] [place] [address] Phone Care Team Providers Care Screen Tender Helper Name Role Phone Stuart Timmons NP Primary Care Provider + Dede Richard MD Primary Care Provider [phone] Reason for Referral * MRI/CAT Scan - Closed Specialty Diagnoses / Procedures Referred By Contac t Referred To Contact Procedures CT Chest Outside (No Interpretation) Kathie Mccarty MD Phone: tel: fax: mailto:[email or web address] Referral ID Status Reason Start Date Expiration Date Visits Re quested Visits Authorized [id number] Closed 06/11/2019 06/10/2020 1 1 * MRI/CAT Scan - Closed Specialty Diagnoses / Procedures Referred By Contac t Referred To Contact Procedures CT Abdomen/Pelvis Outside (No Interpretation) Kathie Mccarty MD Phone: tel: fax: mailto:[email or web address] Referral ID Status Reason Start Date Expiration Date Visits Re quested Visits Authorized [id number] Closed 06/07/2019 06/06/2020 1 1 * MRI/CAT Scan - Closed Specialty Diagnoses / Procedures Referred By Contac t Referred To Contact Procedures CT Abdomen/Pelvis Outside (No Interpretation) Kathie Mccarty MD Phone: tel: fax: mailto:[email or web address] Referral ID Status Reason Start Date Expiration Date Visits Re quested Visits Authorized [id number] Closed 06/07/2019 06/06/2020 1 1 Encounter Details Date Type Department Care Team (Late st Contact Info) Description 06/07/2019 Transcribe Orders [facility] [address] [address] Rajiv Sumner [address] [place] [id number] [email or web address] Social History Tobacco Use Types Packs/Day [...] (No Interpretation) (06/07/2019 9:05 AM EST) N[facility]ative [facility] - 06/07/[facility] 9:05 AM EST [...] OUT INTERPRETATION Final Result Performing Organization Address City/[facility] Co de Phone Number [facility] * CT [...] on filedocumented in this encounter Care Teams Screen Tender Helper Relationship Specialty Start Date End Date Stuart Timmons NP [address] [facility] [place] [address] PCP - General Family Medicine 05/30/19 06/21/19 Dede Richard MD [address] [facility] [place] [address] PCP - General Internal Medicine 06/22/19 documented as of this encounter Additional Source Comments The information contained in this document represents components of the legal health record. It is not the complete legal health record.[facility]
[2025-06-03 10:28] LABS: Hematocrit 37.3 % (37.0-47.0); Hemoglobin 12.4 g/dl (12.0-16.0); Mean Corpuscular HGB Conc 33.2 g/dl (31.0-35.0); Mean Corpuscular Hemoglobin 30.7 pg (27.0-33.0); Mean Corpuscular Volume 92.3 fL (80.0-98.0); NRBC Abs Auto 0.000 X10*3/uL (0.0-0.012); NRBC Pct Auto 0.0 /100WBC (0.0-0.2); Platelet Count 261 X10*3/uL (160-400); Red Blood Count 4.04 X10*6/uL (4.20-5.50); White Blood Count 5.0 X10*3/uL (4.8-10.8)
[2025-06-03 11:24] LABS: Syphilis Screen Nonreactive (Nonreactive)
[2025-06-03 11:25] LABS: HBsAGNum1 0.27 S/CO (0.00-0.99); HIV Num 1 0.05 S/CO (0.00-0.99); Hepatitis B Surface Antigen Negative (Negative); ~HepC Num1 0.38 S/CO (0.00-0.79); ~Hepatitis C Antibody Nonreactive (Nonreactive)
== END 2025-06-03 08:53 | disposition home or self-care (01) ==
LOC: HO.LAB 08:52
PROVIDERS: Obstetrics & Gynecology; PCP Nurse Practitioner Family; Visit Provider Nurse Practitioner Family
DX: Z01.419 Encounter for gynecological examination (general) (routine) without abnormal findings (principal); N93.9 Abnormal uterine and vaginal bleeding, unspecified; Z20.2 Contact with and (suspected) exposure to infections with a predominantly sexual mode of transmission; Z98.51 Tubal ligation status; Z11.4 Encounter for screening for human immunodeficiency virus [HIV]; Z11.59 Encounter for screening for other viral diseases
CPT/HCPCS: 36415; 84443; 84702; 85027; 86780; 86803; 87340; 87389; 99396

== ENCOUNTER 2025-06-03 08:59 | Outpatient (AMB) | payer OTHER, SELFPAY ==
--- NOTE | 2025-06-03 09:08 | A.OFFVIS_ITS ---
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 Complaining of irregular menstrual cycles ass ociated with heavy menstrual cycles. 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 Paternal Grandfather No problems noted. Paternal Grandmother No problems noted. Brother No problems noted. Sister No problems noted. Social History Household Members: None Housing: House Alcohol intake: never Patient Tobacco Use Status: Former Tobacco user Tobacco use type: Cigarette Years Smoked: 1 e-Cigarette/Vaping Use: Never Used Second Hand Smoke Exposure: No service: No Current occupational status: disabled (temp disabled ) Current occupational exposures/hazards: No Sexual orientation: Straight/Heterosexual Gender identity: Female Cognitive needs: No Hearing needs: No Vision needs: Yes Female Reproductive History Menstrual control method: permanent sterilization Total pregnancies: 4 Full term: 3 Number of Living Children: 3 (loss a baby at 6 mo.) Date of last pap smear: 10/30/23 Date of Mammogram: 05/30/25 Review of Systems Const All systems reviewed & are unremarkable except as noted in HPI and below Card Reports as per HPI Resp Reports as per HPI GI Reports as per HPI and Reports no additional complaints Reports as per HPI Physical Exam Const General: cooperative, healthy appearing and comfortable Chest Chest palpation & inspection: normal inspection of the chest and normal palpatio n of entire chest wall Breast/axilla inspection: normal inspection of the breasts and normal inspection of the axillae Breast/axilla palpation: normal palpation of the breasts, normal palpation of the axillae and no axillary lymphadenopathy Resp Effort & Inspection: normal respiratory effort Auscultation: clear to auscultation bilaterally Percussion: percussion normal Cardio Palpation: normal PMI Rate: regular rate Rhythm: regular rhythm Heart sounds: no murmurs and no rubs Peripheral pulses: Peripheral pulses 2+ throughout GI Inspection: Yes normal to inspection Palpation (GI): Soft to palpation, nontender, no guarding, not rigid and No hepatosplenomegaly present Percussion: Yes normal to percussion Auscultation: normal bowel sounds Rectal Exam - Female: deferred General: Yes bladder normal to palpation External Female Exam: No lesion Speculum Exam - Vagina: normal appearance of the vagina, normal palpation, normal vaginal discharge and not erythematous Speculum Exam - Cervix: normal appearance of the cervix and normal palpation Bimanual exam- vagina & uterus: normal bimanual exam, normal palpation, uterine size normal, bladder normal to palpation, consistency normal and normal palpation Bimanual Exam- Adnexa, other: normal adnexae, no masses and no tenderness Assessment & Plan Assessment & Plan (1) Well woman exam: Code(s): Z01.419 - Encounter for gynecological examination (general) (routine) without abnormal findings Category: Medical Plan: Cotesting not indicated this year. Instructions given to patient to schedule next screening Mammogram in 05/26. Counseled the patient about the recommended dietary allowance of 1000 mg of Calcium & 600 IU of vitamin D. The patient was instructed to perform monthly self-breast exams and to schedule an annual exam in a year; All questions answered and the patient verbalized understanding. Instructed the patient to schedule annual exam in a year (2) Abnormal uterine bleeding (AUB): Code(s): N93.9 - Abnormal uterine and vaginal bleeding, unspecified Category: Medical Plan: Co testing done, GC and chlamydia taken CBC, TSH, HCG, and pelvic ultrasound ordered. Discussed with the patient the different causes of abnormal bleeding including thyroid disorders, uterine and ovarian pathology, endometrial hyperplasia, carcinoma and other potential causes. Discussed with the patient the work up including CBC (to r/o anemia), TSH, pelvic Ultrasound, endometrial biopsy to r/o endometrial pathology. All questions answered and the patient verbalized understanding. Instructed the patient to schedule an appointment for an endometrial biopsy in 2 weeks. (3) Screening for STD (sexually transmitted disease): Code(s): Z11.3 - Encounter for screening for infections with a predominantly sexual mode of transmission Category: Medical Plan: STD screening tests done includes: BV panel for trichomonas, GC/CT will send patient for serology std screening for HIV, RPR, Hep b s Ag, HepC Ab. Instructions given the patient to schedule a follow-up appointment for repeat serology screen in 6 months for possible false negatives. Orders: Orders Complete Blood Count no Diff Today N93.9 - Abnormal uterine and vaginal blee ding, unspecified Hepatitis B Surface Antigen Today Z20.2 - Contact with and (suspected) exposure to infections with a predominantly sexual mode of transmission TSH reflex Free T4 Today N93.9 - Abnormal uterine and vaginal bleeding, unspecified HCG Quantitative Today N93.9 - Abnormal uterine and vaginal bleeding, unsp ecified US pelvic and transvaginal Today N93.9 - Abnormal uterine and vaginal bleeding, unspecified Hepatitis C Antibody Today Z20.2 - Contact with and (suspected) exposure to infections with a predominantly sexual mode of transmission HIV Ab/Ag Today Z20.2 - Contact with and (suspected) exposure to infections with a predominantly sexual mode of transmission Syphilis Screen Today Z20.2 - Contact with and (suspected) exposure to infections with a predominantly sexual mode of transmission Coding Level of Care Code Est Pt Prev Care 40-64y(26994) Diagnoses Well woman exam Z01.419 Abnormal uterine bleeding (AUB) N93.9 Screening for STD (sexually transmitted disease) Z11.3
[2025-06-03 09:12] VITALS: BP 126/78; BMI 32.0
== END 2025-06-03 09:28 | disposition home or self-care (01) ==
LOC: HO.HWS 09:00
PROVIDERS: PCP Nurse Practitioner Family; Visit Provider Obstetrics & Gynecology
DX: Z01.419 Encounter for gynecological examination (general) (routine) without abnormal findings (principal); N93.9 Abnormal uterine and vaginal bleeding, unspecified; Z11.3 Encounter for screening for infections with a predominantly sexual mode of transmission
CPT/HCPCS: 99396; 99459

== ENCOUNTER 2025-06-03 10:25 | Outpatient (REF) | payer OTHER, SELFPAY ==
[2025-06-04 00:32] LABS: Bacterial Vaginosis PCR NEGATIVE (Negative); Candida Group PCR NOT DETECTED (Not Detect); Candida glab krusei PCR NOT DETECTED (Not Detect); Trichomonas vaginalis PCR NOT DETECTED (Not Detect)
[2025-06-04 01:04] LABS: CT PCR NOT DETECTED (Not Detect.); NG PCR NOT DETECTED (Not Detect.)
== END 2025-06-03 10:26 | disposition home or self-care (01) ==
LOC: HO.LNP 10:25
PROVIDERS: Visit Provider Obstetrics & Gynecology
DX: Z01.419 Encounter for gynecological examination (general) (routine) without abnormal findings (principal); Z20.2 Contact with and (suspected) exposure to infections with a predominantly sexual mode of transmission
CPT/HCPCS: 81515; 87491; 87591

== ENCOUNTER 2025-06-03 14:13 | Outpatient (REF) | payer OTHER, SELFPAY ==
--- NOTE | ~2025-06-03 | US_ITS ---
EXAMINATION: US PELVIS CLINICAL INFORMATION: Abnormal uterine and vaginal bleeding COMPARISON: Ultrasound 10/25/2023 TECHNIQUE: Ultrasound of the pelvis is performed using both transabdominal and transvaginal transducers along with Doppler. Transvaginal imaging is performed due to inadequate visualization transabdominally. FINDINGS: LMP: 2 weeks ago Uterus: The uterus is anteverted and measures 11 x 4.4 x 4.8 cm. The double wall endometrial thickness is 7 mm. The uterus is smooth in contour and has normal myometrial echogenicity. No visible fibroid. Adnexa: Right ovary measures 1.3 x 1.9 x 1.8 cm. Volume 2.3 mL Left ovary measures 1.7 x 1.7 x 2.2 cm. Volume 3.3 cc. Bilateral ovaries appear unremarkable There is a tubular structure seen in the right adnexa. This is only visualized on the transabdominal evaluation. US/US pelvic and transvaginal IMPRESSION: There is a tubular structure in the right adnexa. This is only visualized on the transabdominal scanning. This is not seen on the transvaginal scanning, incompletely characterized. This is of uncertain etiology. Clinically correlate. Consider further evaluation with MRI pelvis without and with contrast.. Electronically signed by: Cam Pollard MD 06/03/2025 04:07 PM LAY[facility]
== END 2025-06-03 14:14 | disposition home or self-care (01) ==
LOC: HO.US 14:13
PROVIDERS: Visit Provider Obstetrics & Gynecology
DX: N93.9 Abnormal uterine and vaginal bleeding, unspecified (principal)
CPT/HCPCS: 76830; 76856

== ENCOUNTER 2025-06-12 07:37 | Outpatient (AMB) | payer OTHER, SELFPAY ==
--- OUTSIDE RECORDS SUMMARY | 2025-06-12 07:40 | XMS_ITS | Encounter Summary ---
Author Organization [facility] Address [address] [place] [address] Phone Care Team Providers Care Outside Industrial Sales Representative Name Role Phone Stuart Timmons NP Primary Care Provider + Dede Richard MD Primary Care Provider [phone] Reason for Referral * MRI/CAT Scan - Closed Specialty Diagnoses / Procedures Referred By Contac t Referred To Contact Procedures CT Chest Outside (No Interpretation) Kathie Mccarty MD Phone: tel: fax: mailto:[email or web address] Referral ID Status Reason Start Date Expiration Date Visits Re quested Visits Authorized [id number] Closed 06/11/2019 06/10/2020 1 1 * MRI/CAT Scan - Closed Specialty Diagnoses / Procedures Referred By Contac t Referred To Contact Procedures CT Abdomen/Pelvis Outside (No Interpretation) Kathie Mccarty MD Phone: tel: fax: mailto:[email or web address] Referral ID Status Reason Start Date Expiration Date Visits Re quested Visits Authorized [id number] Closed 06/07/2019 06/06/2020 1 1 * MRI/CAT Scan - Closed Specialty Diagnoses / Procedures Referred By Contac t Referred To Contact Procedures CT Abdomen/Pelvis Outside (No Interpretation) Kathie Mccarty MD Phone: tel: fax: mailto:[email or web address] Referral ID Status Reason Start Date Expiration Date Visits Re quested Visits Authorized [id number] Closed 06/07/2019 06/06/2020 1 1 Encounter Details Date Type Department Care Team (Late st Contact Info) Description 06/07/2019 Transcribe Orders [facility] [address] [address] Rajiv Sumner [address] [place] [id number] [email or web address] Social History Tobacco Use Types Packs/Day Years [...] (No Interpretation) (06/11/2019 10:26 AM EST) Narrative [facility] - 06/11/2019 10:26 AM EST This study is for PACS storage only and not for interpretation. Kathie Mccarty MD IMG OUTSIDE IMAGING W/ OUT INTERPRETATION Final Result [facility] * Pelvis Outside (No Interpretation) (06/07/2019 9:05 AM EST) Narrative [facility] - 06/07/2019 9:05 AM EST [...] OUT INTERPRETATION Final Result Performing Organization Address City/[facility] Co de Phone Number [facility] * [...] on filedocumented in this encounter Care Teams Outside Industrial Sales Representative Relationship Specialty Start Date End Date Stuart Timmosn NP [address] [facility] [place] [address] PCP - General Family Medicine 05/30/19 06/21/19 Dede Richard MD [address] [facility] [place] [address] PCP - General Internal Medicine 06/22/19 documented as of this encounter Additional Source Comments The information contained in this document represents components of the legal health record. It is not the complete legal health record.[facility]
--- OUTSIDE RECORDS SUMMARY | 2025-06-12 07:40 | XMS_ITS | Patient Health Record ---
Author Organization [facility] Address [address] [place] [address] Care Team Providers Care Senior Quality Manager Name Role Phone GUILLAUME RAY Primary [...] T PO BID Oral; Duration: 30 Active Btgur-7-vbzl Ethyl Esters 1 GM 2 capsules Orally [...] W/U Status Risk Notes Problem Rectal bleeding (92563490) Rectal bleeding (K62.5) Active confirmed Problem Irritable bowel syndrome with diarrhea (083789073) Irritable bowel syndrome with diarrhea (K58.0) Active confirmed Problem Gastroesophageal reflux disease without esophagitis (494384208) Gastroesophageal reflux disease without esophagitis (K21.9) Active confirmed Plan Of Treatment Future Test Test Name Order Date COLONOSCOPY 11/08/2018 Insurance Providers Payer Name Payer Address Payer Phone Subscriber Number Group Number Insured Name Patient Relationship to Insured Coverage Start Date Coverage End Date [facility] [address] [address] [place], [place] [id number] BENTLEY CHARLES Self - patient is the insured MEDICAID OF [facility] [address] [place] [address] [id number] BENTLEY CHARLES Self - patient is the insured Medical (General) History Medical History History ICD Code anxiety polycystic ovary syndrome fibromyalgia insomnia Denies [place],DM,CVA,renal disease asthma Surgical History Surgery Date(Month/Year) section x4
--- OUTSIDE RECORDS SUMMARY | 2025-06-12 07:40 | XMS_ITS | Encounter Summary ---
Author Organization [facility] Address [address] [facility] [address] [place] [address] Phone Care Team Providers Care Manager Delivery Name Role Phone Dede Richard MD Primary Care Provider [phone] Encounter Details Date Type Department Care Team (Late st Contact Info) Description 10/01/2021 Procedure Pass [facility] [address] [place] [address] Social History Tobacco Use Types Packs/Day Years [...] documented as of this encounter Care Teams Manager Delivery Relationship Specialty Start Date End Date Dede Richard MD [facility] [place] [address] PCP - General Internal Medicine 06/22/19 documented as of this encounter Additional Source Comments The information contained in this document represents components of the legal health record. It is not the complete legal health record.[facility]
--- OUTSIDE RECORDS SUMMARY | 2025-06-12 07:40 | XMS_ITS | Encounter Summary ---
Author Organization [facility] Address [address] [facility] [address] [place] [address] Phone Care Team Providers Care Contaminated Land Consultant Name Role Phone Dede Richard MD Primary Care Provider [phone] Encounter Details Date Type Department Care Team (Late st Contact Info) Description 07/01/2022 Procedure Pass [facility] CT Imaging, [place] [address] [place] [address] Social History Tobacco Use Types Packs/Day Years [...] documented as of this encounter Care Teams Contaminated Land Consultant Relationship Specialty Start Date End Date Dede Richard MD [address] [facility] [place] [address] PCP - General Internal Medicine 06/22/19 documented as of this encounter Additional Source Comments The information contained in this document represents components of the legal health record. It is not the complete legal health record.[facility]
--- OUTSIDE RECORDS SUMMARY | 2025-06-12 07:40 | XMS_ITS | Clinical Summary ---
Author Organization [facility] Address [address] [facility] [address] [place] [address] Phone Care Team Providers Care Biology Teacher Name Role Phone Dede Richard MD Primary Care Provider [phone] Allergies No known active allergies Medications gabapentin [...] on patient's age to complete this topic IPV VACCINES Aged Out No longer eligi ble [...] EDT) SODIUM 142 136 - 145 mmol/L [facility] POTASSIUM 4.2 3.4 - 5.1 mmol/L [facility] CHLORIDE 104 98 - 107 mmol/L [facility] CO2 23 22 - 31 mmol/L [facility] BUN 9 6 - 23 mg/dL [facility] CREATININE 0.73 0.50 - 1.20 mg/dL [facility] GLUCOSE 112(H) 70 - 100 mg/dL [facility] CALCIUM 9.2 8.8 - 10.7 mg/dL [facility] EGFR 103 >59 mL/min/1.7 3m2 [facility] Comment:Estimated glomerular filtration rate calculated using the CKD-EPI refit equation. ANION GAP 15 7 - 17 mmol/L [facility] 03/09/2022 8:50 AM EDT 03/09/2022 9:04 AM EDT us Jeffrey Christiansen MD LAB BLOOD BKR ORDERABLES Fin al Result [facility] [address] [place] [address] from Last 3 Months or Most Recently Relevant to Health Maintenance Insurance [facility] ACO ACO ACO ACO ACO ACO ACO ACO ACO Care Teams Biology Teacher Relationship Specialty Start Date End Date Dede Richard MD [address] [place] [address] PCP - General Internal Medicine 06/22/19 Additional Source Comments The information contained in this document represents components of the legal health record. It is not the complete legal health record.[facility]
--- OUTSIDE RECORDS SUMMARY | 2025-06-12 07:40 | XMS_ITS | Clinical Summary ---
Author Organization [facility] Address [address] [place] [address] Care Team Providers Care Diet Assistant Name Role Phone Unavailable Primary Care Provider [...] complete this topic Procedures * Due to [place] [employer] law, this organization might not be sharing negative HIV tests. Procedure Name Priority Date/Time Associated Diagnosis Comments HEPATITIS C AB WITH REFLEX TO RNA PCR, SERUM Routine 11/02/2013 12:12 PM EDT from Last 3 Months or Most Recently Relevant to Health Maintenance Results * Due to [place] [employer] law, this organization might not be sharing negative HIV tests. * HEPATITIS C ANTIBODY, SERUM (11/02/2013 12:12 PM EDT) Hepatitis C virus Ab NON-REACTI VE NON-REACT [facility] Comment:{HEPATITIS C ANTIBOD Y {[id number]) Hepatitis C virus Ab Signal/Cutoff 0.03 <1.00 [facility] Comment:{SIGNAL TO CUT-OFF { [id number]) 11/02/2013 12:1 2 PM EDT 11/03/2013 4:13 AM EDT us Comfort De La Garza NP LABORATORY Final Result [facility] [address] [place] [address] from Last 3 Months or Most Recently Relevant to Health Maintenance
--- OUTSIDE RECORDS SUMMARY | 2025-06-12 07:40 | XMS_ITS | Clinical Summary ---
Author Organization [facility] Address [address] [place] [address] Care Team Providers Care Structural Draftsman Name Role Phone Stuart Timmons Primary Care [...] Apply to affected area 4 Active omega 3-tax-iet-fish oil (Fish OiL) 1,200 (144-216) mg capsule [...] Health Sole ual Screening 08/01/2024 COVID-19 Vaccine ( season) 2025 08/04/2021, 10/09/2020, 09/12/2020 Influenza Vaccine (#1) 2025 05/16/2024, 2019 Insurance [employer] Care Teams Structural Draftsman Relationship Specialty Start Date End Date Stuart Timmons [facility] [place], [place] [id number] PCP - General 10/18/23
[2025-06-12 07:53] VITALS: BP 110/74; BMI 32.0
--- NOTE | 2025-06-12 07:53 | MHC.OFFVIS ---
Vital Signs 06/12/25 07:53 Height 5 ft Weight 164 lb BMI 32.0 BP 110/74 Intake Visit Reasons: Pelvic u/s follow up/EMB Assistant Professor Of History Required: No Information Interpreted: non-clinical & clinical Community Health Education Coordinator: Community Health Education Coordinator Present (Missy URIBE) Accompanied by: Self / Same As Patient Allergies lactose (LACTOSE) Allergy (Unknown, Verified 06/12/25 07:53) DIARRHEA milk (MILK) Adverse Reaction (Unknown, Verified 06/12/25 07:53) DIARRHEA Is last menstrual period known: Yes Last menstrual period: 05/14/25 HPI Comments Details: Presenting for EMB and ultrasound follow-up done recently which showed the following: IMPRESSION: There is a tubular structure in the right adnexa. This is only visualized on the transabdominal scanning. This is not seen on the transvaginal scanning, incompletely characterized. This is of uncertain etiology. Clinically correlate. Consider further evaluation with MRI pelvis without and with contrast. 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 Paternal Grandfather No problems noted. Paternal Grandmother No problems noted. Brother No problems noted. Sister No problems noted. Social History (Updated 06/03/25 @ 09:15 by Missy Caban CMA) Household Members: None Housing: House Alcohol intake: never Patient Tobacco Use Status: Former Tobacco user Tobacco use type: Cigarette Years Smoked: 1 e-Cigarette/Vaping Use: Never Used Second Hand Smoke Exposure: No service: No Current occupational status: disabled Current occupational exposures/hazards: No Sexual orientation: Straight/Heterosexual Gender identity: Female Cognitive needs: No Hearing needs: No Vision needs: Yes Female Reproductive History Menstrual Date of last menstrual period: 05/14/25 Physical Exam Vital Signs: BMI result Body Mass Index 32.0 Office Procedures Endometrial Biopsy Details: The patient was counseled regarding the indication and benefits of endometrial sampling to rule out endometrial pathology including not limited to endometrial hyperplasia or endometrial cancer and others; The alternatives (Either do nothing vs. hysteroscopy D&C) & the risks were discussed with the patient including but not limited: pain, uterine perforation, bleeding, infection, possible injury to bladder, bowel, ureter, possible need for blood transfusion with all its possible risks. The patient verbalized understanding all questions answered and signed consent. Urine test done in the office was negative The patient was placed into the dorsal lithotomy position; a speculum was inserted in the vagina. Using aseptic technique for the procedure, the cervix was cleansed with Betadine. The anterior lip of the cervix was grasped with a single tooth tenaculum. The uterus was sounded to 7 cm with a 4 mm Pipelle was used. Tissues samples were obtained and placed in formalin, in a patient labeled container and sent to the pathology department. At the end of the procedure, there was minimal bleeding noted The patient tolerated the procedure well and was discharged in good condition with the following instructions: Nothing in the vagina until the bleeding stops. No sex until the bleeding stops, to call if any of the following occurs: fever (>100.4), flu-like symptoms, abdominal pain, heavy bleeding, four smelling vaginal discharge. The patient was instructed to schedule a Follow up appointment in 2 weeks to discuss pathology results of the biopsy and treatment options. This note was generated with a voice recognition program. Some errors may have been overlooked during the review of this note. Sometimes these errors may affect the content or meaning of a given sentence. [id number] Biopsy Results AMB Test Urine AMB Test Urine Negative Last Edit by Missy Caban CMA on 06/12/25 08:12 Assessment & Plan Assessment & Plan (1) Abnormal uterine bleeding (AUB): Code(s): N93.9 - Abnormal uterine and vaginal bleeding, unspecified Category: Medical Plan: EMB done, see procedure (2) Abnormal pelvic ultrasound: Comment: Tubular structure right adnexa Code(s): R93.89 - Abnormal findings on diagnostic imaging of other specified body structures Category: Medical Plan: Discussed with the patient the finding on ultrasound showing right tubal instructions right adnexa only on the transabdominal ultrasound, recommended MRI of the pelvis as the next step in the management. Order placed. Instructions given the patient to schedule pelvic MRI and a follow-up appointment within 2 weeks. All questions answered, the patient verbalized understanding Orders: Orders AMB Endometrial Biopsy Today N93.9 - Abnormal uterine and vaginal bleeding, unspecified AMB HCG Urine Test Today Z32.02 - Encounter for test, result negative MR pelvis wo/w con Today N93.9 - Abnormal uterine and vaginal bleeding, unspecified Coding Level of Care Code Est Pt Level 3 (09888) Procedure Only Diagnoses Abnormal uterine bleeding (AUB) N93.9 Abnormal pelvic ultrasound R93.89 CPT Codes Endometrial Biopsy - CPT: 64218-[id number] Biopsy ([id number])
== END 2025-06-12 08:56 | disposition home or self-care (01) ==
LOC: HO.HWS 07:38
PROVIDERS: PCP Nurse Practitioner Family; Visit Provider Obstetrics & Gynecology
DX: N93.9 Abnormal uterine and vaginal bleeding, unspecified (principal); R93.89 Abnormal findings on diagnostic imaging of other specified body structures; Z32.02 Encounter for pregnancy test, result negative
CPT/HCPCS: 58100; 99213

== ENCOUNTER 2025-06-12 07:37 | Outpatient (REF) | payer OTHER, SELFPAY | END 2025-06-12 07:38 | disposition home or self-care (01) | LOC: HO.LNP 07:37 | PROVIDERS: PCP Nurse Practitioner Family; Visit Provider Obstetrics & Gynecology | DX: R93.89 Abnormal findings on diagnostic imaging of other specified body structures (principal); N93.9 Abnormal uterine and vaginal bleeding, unspecified; Z98.51 Tubal ligation status; Z32.02 Encounter for pregnancy test, result negative | CPT/HCPCS: 58100; 81025; 88305; 99212 ==

== ENCOUNTER 2025-06-12 08:38 | Outpatient (REF) | payer OTHER, SELFPAY ==
[2025-06-12 10:05] LABS: Blood Urea Nitrogen 12 mg/dL (9-16); Estimated Glomerular Filt Rate > 60
== END 2025-06-12 08:39 | disposition home or self-care (01) ==
LOC: HO.LAB 08:38
PROVIDERS: PCP Nurse Practitioner Family; Visit Provider Obstetrics & Gynecology
DX: N85.2 Hypertrophy of uterus (principal); N93.9 Abnormal uterine and vaginal bleeding, unspecified
CPT/HCPCS: 36415; 82565; 84520

== ENCOUNTER 2025-07-01 10:45 | Outpatient (AMB) | payer OTHER, SELFPAY ==
[2025-07-01 10:51] VITALS: BP 130/70; PULSE 75; O2SAT 95; BMI 31.0
--- NOTE | 2025-07-01 10:51 | MHC.PC.OV ---
Vital Signs 07/01/25 10:51 Height 5 ft Weight 159 lb BMI 31.0 BP 130/70 Blood Pressure Location Lt brachial Position Sitting Pulse 75 Pulse Source Pulse Oximeter Pulse Oximetry (%) 95 Intake Visit Reasons: PE Allergies lactose (LACTOSE) Allergy (Unknown, Verified 07/01/25 11:56) DIARRHEA milk (MILK) Adverse Reaction (Unknown, Verified 07/01/25 11:56) DIARRHEA Medication List - Last Reconciled 07/01/25 by STUART Tellez- acetaminophen (Tylenol Extra Strength) 500 mg PO Q6H PRN 30 days atorvastatin 20 mg PO DAILY 90 days clonazepam 1 mg PO BID PRN escitalopram oxalate 20 mg PO DAILY lorazepam 1 mg PO Q12H PRN 30 days quetiapine 25 mg PO BEDTIME quetiapine 100 mg PO BEDTIME ropinirole 0.75 mg (3 x 0.25 mg) PO BEDTIME spironolactone 100 mg PO 2 tabs in morning, 1 tab at night; sumatriptan succinate 50 mg PO ONCE PRN 10 days Tobacco use date assessed: 11/21/24 Dental Screening Dental Screen Date: 11/21/24 HPI PE HPI Details History of Present Illness The patient is a 50 year old individual presenting for a physical examination. The patient has a history of cystic bullous disease of the lung, for which the patient sees a pulmonary team on a regular basis. The patient also has a history of fibromyalgia with associated generalized pains and has seen rheumatology in the past. A few days ago, the patient experienced symptoms consistent with acute gastroenteritis, including nausea, vomiting, and some diarrhea, which are now improving. The patient reports some residual abdominal discomfort but denies any fevers or chills. In terms of health maintenance, the patient's mammogram and colon screening are up-to-date, and the patient has a CLINICAL SPECIALIST provider. Health Maintenance The patient's mammogram and colon cancer screenings are noted to be up-to-date. Fasting labs will be obtained next month. The patient will continue routine follow-up with the CLINICAL SPECIALIST provider. Social History Review of Systems - Constitutional: Denies fevers and chills. - Gastrointestinal: Reports some abdominal discomfort. Reports recent nausea, vomiting, and diarrhea, which are improving. - Musculoskeletal: Reports generalized pains. -denies any SI or HI Physical Exam General: Cooperative, healthy appearing, comfortable, no acute distress and well developed, obese Orientation: Patient oriented x3 Limitations: No limitations Head: Normal to inspection Ears: Hearing grossly normal bilaterally Nose: Normal external nose present Face and sinus: Normal facial exam Eyes: Appearance normal, both eyes and all related structures Neck: Normal visual inspection and Yes full ROM Respiratory: Normal respiratory effort and able to speak in complete sentences. Clear to auscultation bilaterally Cardiovascular: Regular rate and rhythm. Normal S1 and S2 GI: Normal to inspection. Soft to palpation and nontender Skin: No rashes or lesions noted Neuro: Patient oriented x3 Extremities: Normal to inspection Results Plan 1. Cystic Bullous Disease Of The Lung The patient will continue to follow up with the pulmonary team on a regular basis for management of this chronic condition. 2. Fibromyalgia The patient has a history of this condition and has been evaluated by rheumatology in the past. No changes to the management plan were discussed at this visit. 3. Acute Gastroenteritis The patient's symptoms of nausea, vomiting, and diarrhea are noted to be improving. The plan is continued observation as the condition resolves. Discussion Notes Patient Instructions - You will need to get fasting lab work done next month. 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 Paternal Grandfather No problems noted. Paternal Grandmother No problems noted. Brother No problems noted. Sister No problems noted. Social History Household Members: None Housing: House Alcohol intake: never Patient Tobacco Use Status: Former Tobacco user Tobacco use type: Cigarette Years Smoked: 1 e-Cigarette/Vaping Use: Never Used Second Hand Smoke Exposure: No service: No Current occupational status: disabled Current occupational exposures/hazards: No Sexual orientation: Straight/Heterosexual Gender identity: Female Cognitive needs: No Hearing needs: No Vision needs: Yes Questionnaire Thrive Questionnaire Date Thrive assessed: 11/18/24 I am a: Patient What is your living situation today?: I have a steady place to live Within the past 12 months, did the food you bought not last and you didn't have the money to get more?: Sometimes True Within the past 12 months, did you worry whether your food would run out before you got money to buy more?: Never true Do you have trouble paying for medicines?: No Do you have trouble getting transportation to medical appointments?: No Do you have trouble paying your heating and electricity bill?: Yes Do you have trouble taking care of your child, family member or friend?: Yes Do you have trouble with day-to-day activities such as bathing, preparing meals, shopping, managing finances, etc.?: Yes Are you currently unemployed and looking for a job?: Yes Are you interested in more education?: Yes Please select the resources that you would like help with: Education Currently or been in a relationship where the following occur: No concerns reported THRIVE Score: 2 JUAN PABLO-7 AMB Questionnaire JUAN PABLO-7 Date JUAN PABLO - 7 assessed: 11/21/24 Source: Developed by Drs. Benigno Chan, Stephany Howell, Jeffry Cormier and colleagues, with an educational jaison from [employer]. Physical exam (Primary Care) Vital Signs: Last Vital Signs Pulse 75 07/01/25 10:51 BP 130/70 07/01/25 10:51 Pulse Ox 95 07/01/25 10:51 BMI result Body Mass Index 31.0 Tobacco/Smoking Status: Tobacco use Status Tobacco use date assessed 11/21/24 07/01/25 10:55 Patient Tobacco Use Status Former Tobacco user 07/01/25 10:55 Tobacco use type Cigarette 07/01/25 10:55 e-Cigarette/Vaping Use Never Used 07/01/25 10:55 Thrive Assessment: Date of Thrive Assessment Date Thrive assessed 11/18/24 07/01/25 10:55 Currently or been in a relationship where the following occur: No concerns reported Immunizations Boostrix Tdap 2.5 Lf unit-8 mcg-5 Lf/0.5 mL intramuscular syringe Performing Provider: PHILLIP Tellez Performing Location: [facility] Adult [facility] Administered by: Walter Hoff CMA on 07/01/25 11:54 Dose Route Admin Location Dispensed Lot Number Expiration Date NDC Tank Truck Operator 0.5 mL IM Left Deltoid 0.5 mL [id number] 01/11/28 74180-902-88 [employer] Total Dispensed Waste 0.5 mL 0 % VIS Given Date VIS Provided VIS Publication Date 07/01/25 Single Vaccine 21 Eligibility Eligibility Date Funding Source Not [facility] Eligible 07/01/25 Private Coding Level of Care Code Est Pt Prev Care 40-64y(35956) Diagnoses Encounter for routine adult physical exam with abnormal findings Z00. Assessment & Plan Assessment & Plan (1) Encounter for routine adult physical exam with abnormal findings: Code(s): Z00.01 - Encounter for general adult medical examination with abnormal findings Category: Medical Plan . Orders: Orders Complete Blood Count Auto Diff Today Z00. - Encounter for general adult medical examination with abnormal findings Comprehensive [place]. Panel Fast Today Z00.01 - Encounter for general adult medical examination with abnormal findings TDaP Immunization Today Z23 - Encounter for immunization TSH reflex Free T4 Today Z00.01 - Encounter for general adult medical examination with abnormal findings UA CC w/rflx Micro + Cult Today Z00.01 - Encounter for general adult medical examination with abnormal findings Lipid Panel Today Z00.01 - Encounter for general adult medical examination with abnormal findings
--- OUTSIDE RECORDS SUMMARY | 2025-07-01 13:48 | XMS_ITS | Encounter Summary ---
Author Organization [facility] Address [address] [facility] [address] [place] [address] Phone Care Team Providers Care Cnc Mill Operator Name Role Phone Dede Richard MD Primary Care Provider [phone] Encounter Details Date Type Department Care Team (Late st Contact Info) Description 07/01/2022 Procedure Pass [facility] Imaging, [place] [address] [place] [address] Social History Tobacco Use Types Packs/Day Years [...] documented as of this encounter Care Teams Cnc Mill Operator Relationship Specialty Start Date End Date Dede Richard MD [address] [facility] [address] PCP - General Internal Medicine 06/22/19 documented as of this encounter Additional Source Comments The information contained in this document represents components of the legal health record. It is not the complete legal health record.[facility]
--- OUTSIDE RECORDS SUMMARY | 2025-07-01 13:48 | XMS_ITS | Clinical Summary ---
Author Organization [facility] Address [address] [place] [address] Care Team Providers Care Sludge Filtration Operator Name Role Phone Unavailable Primary Care [...] complete this topic Procedures * Due to [place] [employer] law, this organization might not be sharing negative HIV tests. Procedure Name Priority Date/Time Associated Diagnosis Comments HEPATITIS C AB WITH REFLEX TO RNA PCR, SERUM Routine 11/02/2013 12:12 PM EDT from Last 3 Months or Most Recently Relevant to Health Maintenance Results * Due to [place] [employer] law, this organization might not be sharing negative HIV tests. * HEPATITIS C ANTIBODY, SERUM (11/02/2013 12:12 PM EDT) Hepatitis C virus Ab NON-REACTI VE NON-REACT SUSAN [facility] Comment:{HEPATITIS C ANTIBOD Y {[id number]) Hepatitis C virus Ab Signal/Cutoff 0.03 <1.00 [facility] Comment:{SIGNAL TO CUT-OFF { [id number]) 11/02/2013 12:1 2 PM EDT 11/03/2013 4:13 AM EDT us Comfort De La Garza NP LABORATORY Final Result [facility] [address] [place] [address] from Last 3 Months or Most Recently Relevant to Health Maintenance
--- OUTSIDE RECORDS SUMMARY | 2025-07-01 13:48 | XMS_ITS | Clinical Summary ---
Author Organization [facility] Address [address] [facility] [address] [place] [address] Phone Care Team Providers Care Computer Systems Auditor Name Role Phone Dede Richard MD Primary Care Provider [phone] Allergies No known active allergies Medications gabapentin [...] EDT) SODIUM 142 136 - 145 mmol/L [facility] POTASSIUM 4.2 3.4 - 5.1 mmol/L [facility] CHLORIDE 104 98 - 107 mmol/L [facility] CO2 23 22 - 31 mmol/L [facility] BUN 9 6 - 23 mg/dL [facility] CREATININE 0.73 0.50 - 1.20 mg/dL [facility] GLUCOSE 112(H) 70 - 100 mg/dL [facility] CALCIUM 9.2 8.8 - 10.7 mg/dL [facility] EGFR 103 >59 mL/min/1.7 3m2 [facility] Comment:Estimated glomerular filtration rate calculated using the CKD-EPI refit equation. ANION GAP 15 7 - 17 mmol/L [facility] 03/09/2022 8:50 AM EDT 03/09/2022 9:04 AM EDT us Jeffrey Christiansen MD LAB BLOOD BKR ORDERABLES Fin al Result [facility] [address] [place] [address] from Last 3 Months or Most Recently Relevant to Health Maintenance Insurance ACO ACO ACO ACO ACO [place] [address] [place] [address] [place] [address] [place] [address] ACO Care Teams Computer Systems Auditor Relationship Specialty Start Date End Date Dede Richard MD [facility] [place] [address] PCP - General Internal Medicine 06/22/19 Additional Source Comments The information contained in this document represents components of the legal health record. It is not the complete legal health record.[facility]
--- OUTSIDE RECORDS SUMMARY | 2025-07-01 13:48 | XMS_ITS | Encounter Summary ---
Author Organization [facility] Address [address] [facility] [address] [place] [address] Phone Care Team Providers Care Digging Machine Operator Name Role Phone Dede Richard MD Primary Care Provider [phone] Encounter Details Date Type Department Care Team (Late st Contact Info) Description 10/01/2021 Procedure Pass [facility] [address] [place] [address] Social History Tobacco Use Types Packs/Day Years [...] documented as of this encounter Care Teams Digging Machine Operator Relationship Specialty Start Date End Date Dede Richard MD [facility] [place] [address] PCP - General Internal Medicine 06/22/19 documented as of this encounter Additional Source Comments The information contained in this document represents components of the legal health record. It is not the complete legal health record.[facility]
--- OUTSIDE RECORDS SUMMARY | 2025-07-01 13:48 | XMS_ITS | Encounter Summary ---
Author Organization [facility] Address [address] [facility] [address] [place] [address] Phone Care Team Providers Care Cdl Driver Name Role Phone Stuart Timmons NP Primary Care Provider + Dede Richard MD Primary Care Provider [phone] Reason for Referral * MRI/CAT Scan - Closed Specialty Diagnoses / Procedures Referred By Contac t Referred To Contact Procedures CT Chest Outside (No Interpretation) Kathie Mccarty MD Phone: tel: fax: mailto:[email or web address] Referral ID Status Reason Start Date Expiration Date Visits Re quested Visits Authorized [id number] Closed 06/11/2019 06/10/2020 1 1 * MRI/CAT Scan - Closed Specialty Diagnoses / Procedures Referred By Contac t Referred To Contact Procedures CT Abdomen/Pelvis Outside (No Interpretation) Kathie Mccarty MD Phone: tel: fax: mailto:[email or web address] Referral ID Status Reason Start Date Expiration Date Visits Re quested Visits Authorized [id number] Closed 06/07/2019 06/06/2020 1 1 * MRI/CAT Scan - Closed Specialty Diagnoses / Procedures Referred By Contac t Referred To Contact Procedures CT Abdomen/Pelvis Outside (No Interpretation) Kathie Mccarty MD Phone: tel: fax: mailto:[email or web address] Referral ID Status Reason Start Date Expiration Date Visits Re quested Visits Authorized [id number] Closed 06/07/2019 06/06/2020 1 1 Encounter Details Date Type Department Care Team (Late st Contact Info) Description 06/07/2019 Transcribe Orders [facility] [address] [address] Rajiv Sumner [address] [place] [address] [email or web address] Social History Tobacco Use Types Packs/Day Years [...] (No Interpretation) (06/11/2019 10:26 AM EST) Narrative [facility] - 06/11/2019 10:26 AM EST This study is for PACS storage only and not for interpretation. Kathie Mccarty MD IMG OUTSIDE IMAGING W/ OUT INTERPRETATION Final Result [facility] * Pelvis Outside (No Interpretation) (06/07/2019 9:05 AM EST) Narrative [facility] - 06/07/2019 9:05 AM EST This [...] OUT INTERPRETATION Final Result Performing Organization Address City/[facility] Co de Phone Number [email or web address] * [...] on filedocumented in this encounter Care Teams Cdl Driver Relationship Specialty Start Date End Date Stuart Timmons NP [address] [facility] [place] [address] PCP - General Family Medicine 05/30/19 06/21/19 Dede Richard MD [address] [facility] [place] [address] PCP - General Internal Medicine 06/22/19 documented as of this encounter Additional Source Comments The information contained in this document represents components of the legal health record. It is not the complete legal health record.[facility]
--- OUTSIDE RECORDS SUMMARY | 2025-07-01 13:48 | XMS_ITS | Clinical Summary ---
Author Organization [facility] Address [address] [place] [address] Care Team Providers Care Digital Marketing Manager Name Role Phone Stuart Timmons Primary Care Provider [phone] Allergies No known active allergies Medications cholecalciferol [...] Apply to affected area 4 Active omega 5-vkk-wii-fish oil (Fish OiL) 1,200 (144-216) mg capsule [...] Drivers of Health Sole ual Screening 08/01/2024 Influenza Vaccine (#1) 2025 05/16/2024, 2019 COVID-19 Vaccine ( season) 2025 08/04/2021, 10/09/2020, 09/12/2020 Insurance [employer] Care Teams Digital Marketing Manager Relationship Specialty Start Date End Date Stuart Timmons [facility] [place], [place] [id number] PCP - General 10/18/23
== END 2025-07-01 12:19 | disposition home or self-care (01) ==
LOC: HO.HMCC 10:46
PROVIDERS: PCP Nurse Practitioner Family; Visit Provider Nurse Practitioner Family
DX: Z23 Encounter for immunization (principal); Z00.01 Encounter for general adult medical examination with abnormal findings

== ENCOUNTER → 2025-07-01 10:45 | Outpatient (BNVA) | payer OTHER, SELFPAY | PROVIDERS: PCP Nurse Practitioner Family; Visit Provider Nurse Practitioner Family | DX: Z00.01 Encounter for general adult medical examination with abnormal findings (principal); K86.89 Other specified diseases of pancreas; M79.7 Fibromyalgia; J98.4 Other disorders of lung; Z23 Encounter for immunization | CPT/HCPCS: 90471; 90715; 99396 ==

== ENCOUNTER → 2025-07-22 12:48 | Outpatient (BNV) | payer OTHER, SELFPAY | PROVIDERS: PCP Nurse Practitioner Family; Visit Provider Radiology Diagnostic Radiology | DX: N85.8 Other specified noninflammatory disorders of uterus (principal) | CPT/HCPCS: 72197 ==

== ENCOUNTER 2025-07-22 12:51 | Outpatient (REF) | payer OTHER, SELFPAY ==
--- NOTE | ~2025-07-22 | MR_ITS ---
EXAMINATION: MR PELVIS WITHOUT THEN WITH IV CONTRAST HISTORY: N93.9 - Abnormal uterine and vaginal bleeding, unspecified. TECHNIQUE: Axial T1, fat-suppressed T1, and fat suppressed T2, and sagittal and coronal T2-weighted MR images of the pelvis were obtained. Axial diffusion-weighted images were also obtained. Subsequently, sagittal and axial fat-suppressed T1-weighted images were obtained after the intravenous administration of 7 mL Gadavist. COMPARISON: Correlation is made with a pelvic ultrasound dated 06/03/2025. FINDINGS: The uterus measures approximately 9.8 x 4.6 x 5.9 cm. There is thinning of the myometrium anteriorly, likely related to prior section. There is a probable 7 mm submucosal fibroid on the right. The junctional zone does not appear significantly thickened. Small cystic spaces are seen within the junctional zone of the lower uterine segment, however. The endometrium is otherwise unremarkable. There are nabothian cysts in the cervix. The right ovary measures approximately 3.5 x 2.5 x 2.7 cm and is unremarkable. No abnormal tubular structure is seen in the right adnexa as described on prior ultrasound. The left ovary measures approximately 2.0 x 1.5 x 2.2 cm and is unremarkable. There is trace free fluid in the cul-de-sac. There is no pelvic lymphadenopathy. Bones demonstrate normal marrow signal intensity. MR/MR pelvis wo/w con IMPRESSION: 1. Thinning of the anterior myometrium, likely related to prior section. 2. Probable 7 mm submucosal fibroid on the right. Cystic spaces in the junctional zone of the lower uterine segment. 3. Unremarkable appearing ovaries. Electronically signed by: Benigno Montesinos MD 07/22/2025 02:22 PM [facility]
--- OUTSIDE RECORDS SUMMARY | 2025-07-22 16:04 | XMS_ITS | Encounter Summary ---
Author Organization [facility] Address [address] [facility] [address] [place] [address] Phone Care Team Providers Care Second Shift Supervisor Name Role Phone Dede Richard MD Primary Care Provider [phone] Encounter Details Date Type Department Care Team (Late st Contact Info) Description 07/01/[address] [facility], [place] [address] [place] [address] Social History Tobacco Use Types Packs/Day Years [...] documented as of this encounter Care Teams Second Shift Supervisor Relationship Specialty Start Date End Date Dede Richard MD [address] [facility] [place] [address] PCP - General Internal Medicine 06/22/19 documented as of this encounter Additional Source Comments The information contained in this document represents components of the legal health record. It is not the complete legal health record.[facility]
--- OUTSIDE RECORDS SUMMARY | 2025-07-22 16:04 | XMS_ITS | Clinical Summary ---
Author Organization [facility] Address [address] [facility] [address] [place] [address] Phone Care Team Providers Care Nanny Babysitter Name Role Phone Dede Richard MD Primary Care Provider [phone] Allergies No known active allergies Medications gabapentin [...] EDT) SODIUM 142 136 - 145 mmol/L [facility] POTASSIUM 4.2 3.4 - 5.1 mmol/L [facility] CHLORIDE 104 98 - 107 mmol/L [facility] CO2 23 22 - 31 mmol/L [facility] BUN 9 6 - 23 mg/dL [facility] CREATININE 0.73 0.50 - 1.20 mg/dL [facility] GLUCOSE 112(H) 70 - 100 mg/dL [facility] CALCIUM 9.2 8.8 - 10.7 mg/dL [facility] EGFR 103 >59 mL/min/1.7 3m2 [facility] Comment:Estimated glomerular filtration rate calculated using the CKD-EPI refit equation. ANION GAP 15 7 - 17 mmol/L [facility] 03/09/2022 8:50 AM EDT 03/09/2022 9:04 AM EDT us Jeffrey Christiansen MD LAB BLOOD BKR ORDERABLES Fin al Result [facility] [address] [place] [address] from Last 3 Months or Most Recently Relevant to Health Maintenance Insurance ACO ACO ACO ACO ACO [place] [address] [place] [address] [place] [address] [place] [address] ACO Care Teams Nanny Babysitter Relationship Specialty Start Date End Date Dede Richard MD [facility] [place] [address] PCP - General Internal Medicine 06/22/19 Additional Source Comments The information contained in this document represents components of the legal health record. It is not the complete legal health record.[facility]
--- OUTSIDE RECORDS SUMMARY | 2025-07-22 16:04 | XMS_ITS | Encounter Summary ---
Author Organization [facility] Address [address] [facility] [address] [place] [address] Phone Care Team Providers Care Flush Tester Name Role Phone Stuart Timmons NP Primary Care Provider + Dede Richard MD Primary Care Provider [phone] Reason for Referral * MRI/CAT Scan - Closed Specialty Diagnoses / Procedures Referred By Contac t Referred To Contact Procedures CT Chest Outside (No Interpretation) Kathie Mccarty MD Phone: tel: fax: mailto:[email or web address] Referral ID Status Reason Start Date Expiration Date Visits Re quested Visits Authorized [id number] Closed 06/11/2019 06/10/2020 1 1 * MRI/CAT Scan - Closed Specialty Diagnoses / Procedures Referred By Contac t Referred To Contact Procedures CT Abdomen/Pelvis Outside (No Interpretation) Kathie Mccarty MD Phone: tel: fax: mailto:[email or web address] Referral ID Status Reason Start Date Expiration Date Visits Re quested Visits Authorized [id number] Closed 06/07/2019 06/06/2020 1 1 * MRI/CAT Scan - Closed Specialty Diagnoses / Procedures Referred By Contac t Referred To Contact Procedures CT Abdomen/Pelvis Outside (No Interpretation) Kathie Mccarty MD Phone: tel: fax: mailto:[email or web address] Referral ID Status Reason Start Date Expiration Date Visits Re quested Visits Authorized [id number] Closed 06/07/2019 06/06/2020 1 1 Encounter Details Date Type Department Care Team (Late st Contact Info) Description 06/07/2019 Transcribe Orders [facility] [address] [address] Rajiv Sumner [address] [place] [address] [email or web address] Social History Tobacco Use Types Packs/Day [...] (No Interpretation) (06/07/2019 9:05 AM EST) Narrative [facility] - 06/07/2019 9:05 AM EST This study [...] Organization Address City/[facility] Co de Phone Number [...] on filedocumented in this encounter Care Teams Flush Tester Relationship Specialty Start Date End Date Stuart Timmons NP [address] [place] [address] PCP - General Family Medicine 05/30/19 06/21/19 Dede Richard MD [address] [facility] [place] [address] PCP - General Internal Medicine 06/22/19 documented as of this encounter Additional Source Comments The information contained in this document represents components of the legal health record. It is not the complete legal health record.[facility]
--- OUTSIDE RECORDS SUMMARY | 2025-07-22 16:04 | XMS_ITS | Clinical Summary ---
Author Organization [facility] Address [address] [place] [address] Care Team Providers Care High [employer] Industrial Arts Teacher Name Role Phone Unavailable Primary Care Provider [...] this topic Procedures * Due to [place] F[place] law, this organization might not be sharing negative HIV tests. Procedure Name Priority Date/Time Associated Diagnosis Comments HEPATITIS C AB WITH REFLEX TO RNA PCR, SERUM Routine 11/02/2013 12:12 PM EDT from Last 3 Months or Most Recently Relevant to Health Maintenance Results * Due to [place] law, this organization might not be sharing negative HIV tests. * HEPATITIS C ANTIBODY, SERUM (11/02/2013 12:12 PM EDT) Hepatitis C virus Ab NON-REACTI VE NON-REACT [facility]USAN [facility] Comment:{HEPATITIS C ANTIBOD Y {[id number]) Hepatitis C virus Ab Signal/Cutoff 0.03 <1.00 [facility] Comment:{SIGNAL TO CUT-OFF { [id number]) 11/02/2013 12:1 2 PM EDT 11/03/2013 4:13 AM EDT us Comfort De La Garza NP LABORATORY Final Result [facility] [address] [place] [address] from Last 3 Months or Most Recently Relevant to Health Maintenance
--- OUTSIDE RECORDS SUMMARY | 2025-07-22 16:04 | XMS_ITS | Encounter Summary ---
Author Organization [facility] Address [address] [facility] [address] [place] [address] Phone Care Team Providers Care Purchasing Associate Name Role Phone Dede Richard MD Primary Care Provider [phone] Encounter Details Date Type Department Care Team (Late st Contact Info) Description 10/01/2021 Procedure Pass [facility] [address] [place] [address] Social History Tobacco Use Types Packs/Day Years Used Date Smoking Tobacco: Former Cigarettes 1 0 - 1994 Smokeless Tobacco: Never Comments:3 cigarettes [...] documented as of this encounter Care Teams Purchasing Associate Relationship Specialty Start Date End Date Dede Richard MD [facility] [address] PCP - General Internal Medicine 06/22/19 documented as of this encounter Additional Source Comments The information contained in this document represents components of the legal health record. It is not the complete legal health record.[facility]
--- OUTSIDE RECORDS SUMMARY | 2025-07-22 16:04 | XMS_ITS | Clinical Summary ---
Author Organization [facility] Address [address] [place] [address] Care Team Providers Care Clinical Trials Nurse Name Role Phone Stuart Timmons Primary Care Provider [phone] Allergies No known active allergies Medications cholecalciferol [...] Apply to affected area 4 Active omega 3-htb-esl-fish oil (Fish OiL) 1,200 (144-216) mg capsule [...] 10/09/2020, 09/12/2020 Insurance [employer] Care Teams Clinical Trials Nurse Relationship Specialty Start Date End Date Stuart Timmons [facility] [place] [address] PCP - General 10/18/23
--- OUTSIDE RECORDS SUMMARY | 2025-07-22 16:04 | XMS_ITS | Patient Health Record ---
Author Organization [facility] Address [address] [place] [address] Care Team Providers Care Poker In Name Role Phone GUILLAUME RAY Primary Care Provider Parker Carrillo Jr Unavailable Reason For Referral No Information Medications Medication SIG (Take, Route, Frequency, Duration) Notes Start Date End Date Status Spironolactone 100 MG Tablet 1 1/2 tablet Orally as directed Active Gabapentin 600 MG Tablet 2 tablet Orally Three times a day Active Zolpidem Tartrate 12.5mg 1 tablet at bed time as needed Orally Once a day Active Hyoscyamine Sulfate 0.125 Tablet TAKE 1 TABLET BY MOUTH FOUR TIMES DAILY NEEDED BEFORE MEALS; Duration: 30 Active Diphenoxylate-Atropine 2.5-0.025 MG Tablet 1 tablet as needed Orally Four times a day; Duration: as needed 07/09/2013 Not-Taking/PRN Colyte with Flavor Packs 240 GM Solution Reconstituted As directed Orally Over the specified time.; Duration: 1 day(s) 11/08/2018 Active Atorvastatin Calcium 10 MG Tablet 1 tablet Oral Once a day Active Lomotil 2.5-0.025 MG Tablet 1 tablet as needed for diarrhea Orally Four times a day; Duration: 30 days 11/08/2018 Active Hyoscyamine Sulfate 0.125 MG Tablet 1 tablet before meals as needed Orally QID/PRN before meals; Duration: 30 days 01/05/2013 Not-Taking/PRN Omeprazole 20 MG Tablet Delayed Release TAKE 1 TABLET BY MOUTH ONCE A DAY; Duration: 30 Active Nabumetone 500 MG Tablet TK 1 T PO BID O ral; Duration: 30 Active Fhrvx-8-zwnk Ethyl Esters 1 GM Capsule 2 capsules Orally Twice a day Active Ventolin HFA 108 (90 Base) MCG/ACT Aerosol Solution INL 2 PUFFS PO Q 4 H PRN Inhalation prn Active Immunizations Vaccine Route Administration Date Status Comme nts Influenza Unknown 11/08/2018 Refused Social History Social History Drugs/Alcohol: Social Info Question Answer Notes Alcohol Screen Did you have a drink containing alcohol in the past year? 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 Problems Problem Type SNOMED Code ICD Code Onset Dates Problem Status W/U Status Risk Notes Problem Rectal bleeding (72230457) Rectal bleeding (K62.5) Active confirmed Problem Irritable bowel syndrome with diarrhea (379889224) Irritable bowel syndrome with diarrhea (K58.0) Active confirmed Problem Gastroesophageal reflux disease without esophagitis (159249143) Gastroesophageal reflux disease without esophagitis (K21.9) Active confirmed Plan Of Treatment Future Test Test Name Order Date COLONOSCOPY 11/08/2018 Insurance Providers Payer Name Payer Address Payer Phone Subscriber Number Group Number Insured Name Patient Relationship to Insured Coverage Start Date Coverage End Date [facility] [address] [address] [place], [place] [id number] BENTLEY CHARLES Self - patient is the insured MEDICAID OF [facility] [address] [place] [address] [id number] BENTLEY CHARLES Self - patient is the insured Medical (General) History Medical History History ICD Code anxiety polycystic ovary syndrome fibromyalgia insomnia Denies IA,DM,CVA,renal disease asthma Surgical History Surgery Date(Month/Year) section x4
== END 2025-07-22 12:52 | disposition home or self-care (01) ==
LOC: HO.MRI 12:51
PROVIDERS: PCP Nurse Practitioner Family; Visit Provider Obstetrics & Gynecology
DX: N93.9 Abnormal uterine and vaginal bleeding, unspecified (principal)
CPT/HCPCS: 72197; A9585